=== PATIENT | male | born 1965 | race American Indian/Alaskan Native ===

== ENCOUNTER 2018-08-07 17:24 | Inpatient (IN) | payer MEDICARE, OTHER ==
[2018-08-07 17:37] VITALS: BMI 26.4
--- NOTE | 2018-08-07 18:28 | RAD ---
Date of service: 08/07/2018 HISTORY: SOB COMPARISON: No prior. FINDINGS: LUNGS: Combination of pulmonary infiltrates which are multifocal, extensive fact in the right lung to a greater degree than the left lung and interstitial lung disease primarily reticular nodule with a miliary pattern. Etiology, acuity are unknown. There are no comparison studies. PLEURA: No significant pleural effusion identified, no pneumothorax apparent. CARDIOVASCULAR: No atherosclerotic calcification present Cardiomegaly. No evidence of acute, significant cardiovascular disease. OSSEOUS STRUCTURES: No significant abnormalities. VISUALIZED UPPER ABDOMEN: Normal. OTHER FINDINGS: None. IMPRESSION: Severe interstitial lung disease reticular nodular/miliary pattern. Superimposed multifocal infiltrates right lung greater than. Recommendation: CT scan for further evaluation given clinical symptoms and radiographic findings.
[2018-08-07 18:29] LABS: VENOUS BLOOD GAS BASE EXCESS 3.5 mmol/L (0.0-2.0); VENOUS BLOOD GAS PO2 38 mm/Hg (30-55); VENOUS BLOOD PH 7.49 (7.32-7.43)
[2018-08-07 18:53] LABS: BASO # 0.07 K/mm3 (0.0-2.0); BASO % 0.1 % (0.0-3.0); EOS % 0.1 % (1.5-5.0); HEMOGLOBIN 7.3 g/dL (14.0-18.0); LYMPH # 2.2 (1.2-3.4); LYMPH % 4.1 % (22.0-35.0); MEAN CELL VOLUME 87.3 fl (80.0-105.0); MEAN CORPUSCULAR HEMOGLOBIN 28.1 pg (25.0-35.0); MEAN CORPUSCULAR HGB CONC 32.2 g/dl (31.0-37.0); MONO # 1.3 (0.1-0.6); MONO % 2.4 % (1.0-6.0); PLATELET COUNT 102 10^3/uL (120.0-450.0); RED CELL DISTRIBUTION WIDTH 19.9 % (11.5-14.5)
[2018-08-07 19:01] LABS: WHITE BLOOD COUNT 53.9 10^3/uL (4.5-11.0)
[2018-08-07 19:05] LABS: INR 2.19; PARTIAL THROMBOPLASTIN TIME 30.1 Seconds (26.9-38.3); PROTHROMBIN TIME 24.3 SECONDS (9.4-12.5)
[2018-08-07] MEDS ORDERED: Piperacill/Tazo 4.5gm in NS 4.5 GM/100 ML BAG IVPB STA (19:07)
[2018-08-07] MEDS ORDERED: Vancomycin 1gm in NS 250ml 1 GM/250 ML BAG IVPB STA (19:07)
[2018-08-07 19:08] LABS: ALB/GLOB RATIO 0.8 (1.1-1.8); ALBUMIN 2.7 g/dL (3.0-4.8); CALCIUM 7.1 mg/dL (8.4-10.5)
[2018-08-07 19:11] LABS: BAND 3 % (0-2); LYMPHOCYTE 2 % (22.0-35.0); METAMYELOCYTE 1 %; MONOCYTE 3 % (1.0-6.0); MYELOCYTE 1 %; NEUTROPHIL 90 % (50.0-70.0); NUCLEATED RED BLOOD CELL 2 %
[2018-08-07 19:12] LABS: ANISOCYTOSIS 1+; TARGET CELLS SLIGHT
--- NOTE | 2018-08-07 19:15 | ED PDOC ---
Arrival/HPI - General Chief Complaint: Weakness/Neurological Deficit Historian: Patient - History of Present Illness Narrative History of Present Illness (Text): 08/07/18 19:14 Remigio Vega is a 53 year old male, with a past medical history of stage 4 c ancer and ESRD on dialysis (T, Th , Sat), sent to the emergency department by oncologist for generalized pain / weakness, sacral wound, and left upper extremity / bilateral lower extremity swelling. Patient notes diarrhea and back pain. Patient also notes fever since the past couple of days. Per family, patient is darker in appearance than usual. Patient appreciates recent kidney biopsy which showed necrotic tissue. Pt does not produce urine with last dialysis on 08/05/18. Patient denies chills, headache, dizziness, chest pain, shortness of breath, cough, abdominal pain, nausea, vomiting, bloody / dark stools, neck pain, or any other complaints. Oncologist: Dr. Talley Time/Duration: Prior to Arrival Symptom Course: Unchanged Activities at Onset: Light Context: Home Past Medical History - Provider Review Nursing Documentation Reviewed: Yes - Infectious Disease Hx of Infectious Diseases: None - Cardiac Hx Hypertension: Yes - Renal Hx Dialysis: Yes ([facility]) Type of Dialysis Access: BERE AV SHUNT Date of Last Dialysis Treatment: 08/05/18 - Hematological/Oncological Hx Anemia: Yes Hx Blood Transfusions: Yes (in [facility] [place]) Hx Cancer: Yes - Psychiatric Hx Substance Use: No - Surgical History Other/Comment: Biopsy. BERE AV shunt - Anesthesia Hx Anesthesia: Yes Hx Anesthesia Reactions: No Hx Malignant Hyperthermia: No Family/Social History - Physician Review Nursing Documentation Reviewed: Yes Family/Social History: Unknown Family HX Smoking Status: Never Smoked Hx Alcohol Use: No Hx Substance Use: No Allergies/Home Meds Allergies/Adverse Reactions: Allergies No Known Allergies Allergy (Verified 08/07/18 17:37) Review of Systems - Physician Review All systems were reviewed & negative as marked: Yes - Review of Systems Constitutional: Fevers, Other (generalized pain / weakness) Respiratory: absent: SOB, Cough Cardiovascular: Edema (left upper extremity and bilateral lower extremity swelling). absent: Chest Pain Gastrointestinal: Diarrhea. absent: Abdominal Pain, Nausea, Vomiting, Hematochezia, Other (melena ) Musculoskeletal: Back Pain Skin: Other (sacral wound) Neurological: absent: Headache, Dizziness Physical Exam Vital Signs Reviewed: Yes Vital Signs Temp Pulse Resp BP Pulse Ox 08/07/18 18:04 68 20 102/66 88 L 08/07/18 17:37 97.5 F L 72 18 94/55 L 91 L Temperature: Afebrile Blood Pressure: Normal Pulse: Regular Respiratory Rate: Normal Appearance: Positive for: Well-Appearing, Non-Toxic, Comfortable Pain Distress: None Mental Status: Positive for: Alert and Oriented X 3 - Systems Exam Head: Present: Atraumatic, Normocephalic Pupils: Present: PERRL Extroacular Muscles: Present: EOMI Conjunctiva: Present: Normal Mouth: Present: Moist Mucous Membranes Neck: Present: Normal Range of Motion. No: JVD Respiratory/Chest: Present: Rales (correction up). No: Respiratory Distress, Accessory Muscle Use Cardiovascular: Present: Normal S1, S2, Irregular Rhythm. No: Murmurs Abdomen: Present: Distention, Normal Bowel Sounds. No: Tenderness, Peritoneal Signs, Rebound, Guarding Back: Present: Normal Inspection Upper Extremity: Present: Normal Inspection. No: Cyanosis, Edema Lower Extremity: Present: Normal Inspection, Swelling (pitting edema +2 bilateral lower extremities). No: Edema Neurological: Present: GCS=15, CN II-XII Intact, Speech Normal Skin: Present: Warm, Dry, Normal Color. No: Rashes Psychiatric: Present: Alert, Oriented x 3, Normal Insight, Normal Concentration Medical Decision Making ED Course and Treatment: 08/07/18 19:14 Impression: Patient is a 53 year old male, with a past medical history of stage 4 cancer and ESRD on dialysis (T, Th , Sat), sent to the emergency department by oncologist for generalized pain / weakness, sacral wound, and left upper extremity / bilateral lower extremity swelling. Plan: -- Labs -- CT Chest / Abdomen / Pelvis w/o Contrast -- EKG -- Chest X-Ray -- Vancomycin -- Zosyn -- Urinalysis -- O2 Nasal Cannula -- Reassess and disposition Prior Visits: Notes and results from previous visits were reviewed. Progress Notes: 08/07/18 20:[address] Talley who states patient appreciates 12 cm mass to right kidney. Also informs patient was recently admitted to [facility] [place] for weakness. At that time hemoglobin was 8.5 and pt received 1 unit of RBC's. Also appreciated ultrasound of left upper extremity which did not show DVT. Patient's white count is consistently high in the mid 30,000 range. Lactate 10:1 between 2 and 3. Code Sepsis called. 08/07/18 20:[address] Hutchinson, patient accepted to telemetry. - Lab Interpretations Lab Results: pO2 38 mm/Hg (30-55) 08/07/18 18:24 VBG pH 7.49 (7.32-7.43) H 08/07/18 18:24 VBG pCO2 35.0 (40-60) L 08/07/18 18:24 VBG HCO3 26.7 mmol/l (21-28) 08/07/18 18:24 VBG Total CO2 27.8 mmol.L (22-28) 08/07/18 18:24 VBG O2 Sat (Calc) 71.7 % (40-65) H 08/07/18 18:24 VBG Base Excess 3.5 mmol/L (0.0-2.0) H 08/07/18 18:24 VBG Potassium 4.9 mmol/L (3.6-5.2) 08/07/18 18:24 Sodium 132.0 mmol/L (132-148) 08/07/18 18:24 Chloride 92.0 mmol/L (98-107) L 08/07/18 18:24 Glucose 92 mg/dl (75-110) 08/07/18 18:24 Lactate 4.8 mmol/L (0.7-2.1) H* 08/07/18 18:24 FiO2 21.0 % 08/07/18 18:24 Crit Value Called To Ileana brady 08/07/18 18:24 [place] [id number] 08/07/18 18:24 Blood Gas Notified Time 1829 08/07/18 18:24 PT 24.3 SECONDS (9.4-12.5) H 08/07/18 18:49 INR 2.19 08/07/18 18:49 APTT 30.1 Seconds (26.9-38.3) 08/07/18 18:49 Total Bilirubin 2.3 mg/dL (0.2-1.3) H 08/07/18 18:49 AST 169 U/L (17-59) H 08/07/18 18:49 ALT 49 U/L (7-56) 08/07/18 18:49 Alkaline Phosphatase 251 U/L (38-126) H 08/07/18 18:49 Total Protein 6.1 g/dL (5.8-8.3) 08/07/18 18:49 Albumin 2.7 g/dL (3.0-4.8) L 08/07/18 18:49 Globulin 3.4 gm/dL 08/07/18 18:49 Albumin/Globulin Ratio 0.8 (1.1-1.8) L 08/07/18 18:49 - RAD Interpretation Radiology Orders: 08/07/18 18:02 CHEST PORTABLE [RAD] Stat 08/07/18 18:03 CHEST,ABDOMEN, PELVIS W/O CONT [CT] Stat - EKG Interpretation EKG Interpretation (Text): 08/07/18 19:14 Reviewed EKG, shows: NSR at 60 BPM. Normal [place], Normal Intervals. Interpreted by ED Physician: Yes Type: 12 lead EKG - Medication Orders Current Medication Orders: Vancomycin HCl (Vancomycin 1gm) 1 gm in 250 mls @ 167 mls/hr IVPB STAT STA; Protocol Stop: 08/07/18 20:36 Piperacillin Sod/Tazobactam Sod (Zosyn 4.5 Gm In Ns 100ml) 4.5 gm in 100 mls @ 200 mls/hr IVPB STAT STA; Protocol Stop: 08/07/18 19:36 - Scribe Statement The provider has reviewed the documentation as recorded by the Scribkishore Willard All medical record entries made by the Anastasiaibkishore were at my direction and personally dictated by me. I have reviewed the chart and agree that the record accurately reflects my personal performance of the history, physical exam, medical decision making, and the department course for this patient. I have also personally directed, reviewed, and agree with the discharge instructions and disposition. Disposition/Present on Arrival - Present on Arrival Any Indicators Present on Arrival: No History of DVT/PE: No History of Uncontrolled Diabetes: No Urinary Catheter: No History of Decub. Ulcer: No History Surgical Site Infection Following: None - Disposition Have Diagnosis and Disposition been Completed?: Yes Diagnosis: Sepsis, ESRD (end stage renal disease), Anemia, Weakness, Renal cell carcinoma, Elevated troponin, Leukocytosis, Bandemia Disposition: HOSPITALIZED Disposition Time: 18:00 Condition: GUARDED
--- NOTE | 2018-08-07 19:24 | CARD ---
APPROVED REPORT Date of service: 08/07/2018 EKG Measurement Heart [id number] <Conclusion> Normal sinus rhythm Normal ECG
[2018-08-07 19:42] LABS: TROPONIN I 0.27 ng/mL
[2018-08-07 21:46] LABS: VENOUS BLOOD GAS BASE EXCESS 2.2 mmol/L (0.0-2.0); VENOUS BLOOD GAS PO2 183 mm/Hg (30-55); VENOUS BLOOD PH 7.49 (7.32-7.43)
--- NOTE | 2018-08-07 22:40 | PCM.SEPTIC ---
<Mable Gordon - Last Filed: 08/08/18 03:27> Sepsis Progress Note - Reassessment Type Reassessment Type: Non-invasive reassessment - Non Invasive Reassessment Were the most recent vital sign reviewed: Yes Vital Sign (Latest): Temp Pulse Resp BP Pulse Ox 97.5 F L 69 18 107/59 L 100 08/07/18 17:37 08/07/18 22:10 08/07/18 22:10 08/07/18 22:10 08/07/18 22:10 Cardiovascular: Yes: Regular Rate, Rhythm Respiratory: Yes: Rales Capillary Refill: Normal (Less than 2 sec) Skin: Normal Color <Barron Carmona - Last Filed: 08/08/18 06:22> Sepsis Progress Note - Non Invasive Reassessment Vital Sign (Latest): Temp Pulse Resp BP Pulse Ox 97.6 F 64 19 96/57 L 97 08/08/18 02:53 08/08/18 06:00 08/08/18 02:53 08/08/18 02:53 08/08/18 00:01 Attending/Attestation - Attestation I have personally seen and examined this patient.: Yes I have fully participated in the care of the patient.: Yes I have reviewed all pertinent clinical information, including history, physical exam and plan: Yes
--- NOTE | 2018-08-08 00:16 | CP.PCM.HP ---
<Lexi Lazo - Last Filed: 08/08/18 00:12> History of Present Illness - History of Present Illness History of Present Illness: Hospitalist H&P, Stephen Lazo PGY3 This is a 53yo AA male with past medical history of HTN, HLD, ESRD on HD (, , ), R Renal mass who came in for weakness and diarrhea for 3 days. Patient reports he has been having loose watery stool. He denies recent travel or change in diet. He has been going to [facility] for evaluation of his R renal mass and was recently admitted there. Patient is a poor historian. I spoke with his , Aimee, who reports patient has recently been on antibiotics. She also states he had a recent renal biopsy which did not yield a diagnosis. He also has L arm swelling for the past 2 weeks which was evaluated for blood clot and was re ported negative as per his . She also reports he had an echo and other imaging done at [facility]. She states she will bring his records in the morning as well as his home medication list. Patient reports having weakness, some shortness of breath and diffuse swelling. He denies chest pain, nausea/vomiting, fever/chills, numbness/tingling, dysuria or hematuria. reports he started HD 6 months ago and states that her was non-compliant with medications and follow up in the past. She is unsure if he started HD secondary to kidney mass v. uncontrolled BP. ED physician spoke with patients oncologist, Dr. Childs, who states his baseline WBC is in the 30s and lactate 2-3 as well as Hgb baseline of 8.5. Past medical history: HTN, HLD, ESRD on HD (T, T, ), R Renal mass Past surgical history: L AV fistula, R Renal mass biopsy Home meds: Patient unable to recall. has all medication at home and will bring to hospital in AM Allergies: NKDA Social history: Denies EtOH, drug or tobacco use. 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 Childs Explosive Man: Dr. Lewis? Present on Admission - Present on Admission Any Indicators Present on Admission: No Review of Systems - Review of Systems All systems: reviewed and no additional remarkable complaints except Review of Systems: 12 point ROS obtained as per HPI and is otherwise negative Past Patient History - Infectious Disease Hx of Infectious Diseases: None - Past Social History Smoking Status: Never Smoked - CARDIAC Hx Hypertension: Yes - RENAL Hx Dialysis: Yes ([facility]) Type of Dialysis Access: BERE AV SHUNT Date of Last Dialysis Treatment: 08/05/18 - HEMATOLOGICAL/ONCOLOGICAL Hx Anemia: Yes Hx Blood Transfusions: Yes (in [facility]) Hx Cancer: Yes - PSYCHIATRIC Hx Substance Use: No - SURGICAL HISTORY Other/Comment: Biopsy. BERE AV shunt - ANESTHESIA Hx Anesthesia: Yes Hx Anesthesia Reactions: No Hx Malignant Hyperthermia: No Meds Allergies/Adverse Reactions: Allergies Allergy/AdvReac Type Severity Reaction Status Date / Time No Known Allergies Allergy Verified 08/07/18 17:37 Physical Exam - Constitutional Appears: No Acute Distress, Chronically Ill - Head Exam Head Exam: ATRAUMATIC, NORMAL INSPECTION, NORMOCEPHALIC - Eye Exam Eye Exam: Normal appearance, PERRL Pupil Exam: NORMAL ACCOMODATION, PERRL - ENT Exam ENT Exam: Mucous Membranes Moist - Respiratory Exam Respiratory Exam: Rales (at bases bilaterally ), Rhonchi, NORMAL BREATHING PATTERN - Cardiovascular Exam Cardiovascular Exam: REGULAR RHYTHM, +S1, +S2. absent: Gallop, Rubs, Systolic Murmur - GI/Abdominal Exam GI & Abdominal Exam: Distended, Normal Bowel Sounds, Organomegaly (hepatomegaly ), Soft. absent: Mass, Rebound, Rigid, Tenderness - Extremities Exam Extremities exam: Positive for: pedal edema. Negative for: calf tenderness Additional comments: L upper extremity swollen AV fistula bruit appreciated - Neurological Exam Neurological exam: Alert, CN II-XII Intact - Psychiatric Exam Psychiatric exam: Normal Affect, Normal Mood - Skin Skin Exam: Dry, Intact, Warm Results - Vital Signs Recent Vital Signs: Last Vital Signs Temp 97.0 F L 08/07/18 23:47 Pulse 85 08/07/18 23:47 Resp 20 08/07/18 23:47 BP 114/75 08/07/18 23:47 Pulse Ox 100 08/07/18 22:10 - Labs Result Diagrams: 08/07/18 18:49 08/07/18 18:49 Labs: Laboratory Results - last 24 hr 08/07/18 08/07/18 08/07/18 18:24 18:49 18:49 WBC 53.9 H* RBC 2.60 L Hgb 7.3 L Hct 22.7 L MCV 87.3 MCH 28.1 MCHC 32.2 RDW 19.9 H Plt Count 102 L MPV 10.0 Neut % (Auto) 93.3 H Lymph % (Auto) 4.1 L Forrest % (Auto) 2.4 Eos % (Auto) 0.1 L Baso % (Auto) 0.1 Lymph # (Auto) 2.2 Forrest # (Auto) 1.3 H Eos # (Auto) 0.0 Baso # (Auto) 0.07 Absolute Neuts (auto) 50.29 H Neutrophils % (Manual) 90 H Band Neutrophils % 3 H Lymphocytes % (Manual) 2 L Monocytes % (Manual) 3 Metamyelocytes % 1 Myelocytes % 1 Nucleated RBC % 2 Anisocytosis (manual) 1+ Target Cells Slight PT 24.3 H INR 2.19 APTT 30.1 pO2 38 VBG pH 7.49 H VBG pCO2 35.0 L VBG HCO3 26.7 VBG Total CO2 27.8 VBG O2 Sat (Calc) 71.7 H VBG Base Excess 3.5 H VBG Potassium 4.9 Sodium 132.0 Chloride 92.0 L Glucose 92 Lactate 4.8 H* FiO2 21.0 Crit Value Called [place] [id number] Blood Gas Notified Time 1829 Potassium Carbon Dioxide Anion Gap BUN Creatinine Est GFR ( Amer) Est GFR (Non-Af Amer) Random Glucose Calcium Phosphorus Magnesium Total Bilirubin AST ALT Alkaline Phosphatase Lactate Dehydrogenase Total Creatine Kinase Troponin I NT-Pro-B Natriuret Pep Total Protein Albumin Globulin Albumin/Globulin Ratio Venous Blood Potassium 4.9 Blood Type Blood Type Confirm Antibody Screen Crossmatch BBK History Checked 08/07/18 08/07/18 08/07/18 18:49 18:49 19:17 WBC RBC Hgb Hct MCV MCH MCHC RDW Plt Count MPV Neut % (Auto) Lymph % (Auto) Forrest % (Auto) Eos % (Auto) Baso % (Auto) Lymph # (Auto) Forrest # (Auto) Eos # (Auto) Baso # (Auto) Absolute Neuts (auto) Neutrophils % (Manual) Band Neutrophils % Lymphocytes % (Manual) Monocytes % (Manual) Metamyelocytes % Myelocytes % Nucleated RBC % Anisocytosis (manual) Target Cells PT INR APTT pO2 VBG pH VBG pCO2 VBG HCO3 VBG Total CO2 VBG O2 Sat (Calc) VBG Base Excess VBG Potassium Sodium 134 Chloride 89 L Glucose Lactate FiO2 Crit Value Called To Crit Value Called By Blood Gas Notified Time Potassium 4.9 Carbon Dioxide 26 Anion Gap 23 H BUN 74 H Creatinine 5.6 H Est GFR ( Amer) 13 Est GFR (Non-Af Amer) 11 Random Glucose 93 Calcium 7.1 L Phosphorus 6.4 H Magnesium 2.0 Total Bilirubin 2.3 H AST 169 H ALT 49 Alkaline Phosphatase 251 H Lactate Dehydrogenase 17324 H Total Creatine Kinase 28 L Troponin I 0.27 H* NT-Pro-B Natriuret Pep 71391 H Total Protein 6.1 Albumin 2.7 L Globulin 3.4 Albumin/Globulin Ratio 0.8 L Venous Blood Potassium Blood Type O POSITIVE Blood Type Confirm O POSITIVE Antibody Screen Negative Crossmatch See Detail BBK History Checked No verified bt 08/07/18 21:30 WBC RBC Hgb Hct MCV MCH MCHC RDW Plt Count MPV Neut % (Auto) Lymph % (Auto) Forrest % (Auto) Eos % (Auto) Baso % (Auto) Lymph # (Auto) Forrest # (Auto) Eos # (Auto) Baso # (Auto) Absolute Neuts (auto) Neutrophils % (Manual) Band Neutrophils % Lymphocytes % (Manual) Monocytes % (Manual) Metamyelocytes % Myelocytes % Nucleated RBC % Anisocytosis (manual) Target Cells PT INR APTT pO2 183 H VBG pH 7.49 H VBG pCO2 33.0 L VBG HCO3 25.1 VBG Total CO2 26.1 VBG O2 Sat (Calc) 100.6 H VBG Base Excess 2.2 H VBG Potassium 4.8 Sodium 133.0 Chloride 96.0 L Glucose 88 Lactate 4.0 H* FiO2 21.0 Crit Value Called To Elieser murray Crit Value Called By Atc Blood Gas Notified Time 2144 Potassium Carbon Dioxide Anion Gap BUN Creatinine Est GFR ( Amer) Est GFR (Non-Af Amer) Random Glucose Calcium Phosphorus Magnesium Total Bilirubin AST ALT Alkaline Phosphatase Lactate Dehydrogenase Total Creatine Kinase Troponin I NT-Pro-B Natriuret Pep Total Protein Albumin Globulin Albumin/Globulin Ratio Venous Blood Potassium 4.8 Blood Type Blood Type Confirm Antibody Screen Crossmatch BBK History Checked Assessment & Plan - Assessment and Plan (Free Text) Assessment: This is a 53yo AA male with past medical history of HTN, HLD, ESRD on HD (T, T, Sa), R Renal mass who came in for weakness and diarrhea for 3 days. Patient was found to have sepsis secondary to diarrhea v. pneumonia, anasarca, anemia, and elevated troponin. Plan: 1.Sepsis -Secondary to diarrhea (rule out C.diff) as well as pneumonia -WBC 53- baseline WBC 30s and lactate 2-3 according to oncologist- Dr. Childs -Vanc and Zosyn given in ED -Cultures pending (stool, blood, urine) -Will give PO Vanco empirically for C.diff -Merrem (renally dosed) and Doxy for suspected HCAP -ID consulted -CT AP showed LLL consolidation 2.Elevated troponin -Can be secondary to demand ischemia -Pt had echo done recently at [facility] according to family- will obtain records in AM -Will trend troponin, check lipid panel -Cardio consulted -ASA and Lipitor - CT AP showed severely enlarged heart w/ moderate size pericardial effusion 3.Anasarca -Pt had LUE US last week to rule out DVT which was negative at [facility] [place] -Hold IV fluids -Will do HD as scheduled 4.Anemia/thrombocytopenia -Baseline Hgb ~8.[address] Childs (oncologist) -No overt bleeding noted -1U PRBC ordered by ED physician -Heme/onc consulted by ED unknown if Dr. Childs [place] [facility] 5.Leukocytosis -Can be secondary to sepsis -Will order peripheral smear to rule out CLL - baseline WBC 30s 6.ESRD on HD -HD on T, T, Sa -Nephrology consulted to initiate HD for AM 7.HTN -BP low -Hold antihypertensives 8.R Renal mass - 12.5cm on CT, L kidney severely atrophic -Unknown cancer undistinguishable on biopsy -Mets to liver and lungs seen on CT -Palliative care consulted -Patient does have a document saying that is power of traffic law attorney which will bring in AM DVT ppx: Heparin SC Case seen, discussed and reviewed with Dr. Kristine Lazo PGY3 - Date & Time Date: 08/08/18 Time: 00:27 <Barron Carmona - Last Filed: 08/08/18 06:22> Results - Vital Signs Recent Vital Signs: Last Vital Signs Temp 97.6 F 08/08/18 02:53 Pulse 64 08/08/18 06:00 Resp 19 08/08/18 02:53 BP 96/57 L 08/08/18 02:53 Pulse Ox 97 08/08/18 00:01 - Labs Result Diagrams: 08/08/18 04:00 08/08/18 04:00 Labs: Laboratory Results - last 24 hr 08/07/18 08/07/18 08/07/18 18:24 18:49 18:49 WBC 53.9 H* RBC 2.60 L Hgb 7.3 L Hct 22.7 L MCV 87.3 MCH 28.1 MCHC 32.2 RDW 19.9 H Plt Count 102 L MPV 10.0 Neut % (Auto) 93.3 H Lymph % (Auto) 4.1 L Forrest % (Auto) 2.4 Eos % (Auto) 0.1 L Baso % (Auto) 0.1 Lymph # (Auto) 2.2 Forrest # (Auto) 1.3 H Eos # (Auto) 0.0 Baso # (Auto) 0.07 Absolute Neuts (auto) 50.29 H Neutrophils % (Manual) 90 H Band Neutrophils % 3 H Lymphocytes % (Manual) 2 L Monocytes % (Manual) 3 Metamyelocytes % 1 Myelocytes % 1 Nucleated RBC % 2 Anisocytosis (manual) 1+ Target Cells Slight PT 24.3 H INR 2.19 APTT 30.1 pO2 38 VBG pH 7.49 H VBG pCO2 35.0 L VBG HCO3 26.7 VBG Total CO2 27.8 VBG O2 Sat (Calc) 71.7 H VBG Base Excess 3.5 H VBG Potassium 4.9 Sodium 132.0 Chloride 92.0 L Glucose 92 Lactate 4.8 H* FiO2 21.0 Crit Value Called To [place] [id number] Blood Gas Notified Time 1275 Potassium Carbon Dioxide Anion Gap BUN Creatinine Est GFR ( Amer) Est GFR (Non-Af Amer) Random Glucose Calcium Phosphorus Magnesium Total Bilirubin AST ALT Alkaline Phosphatase Lactate Dehydrogenase Total Creatine Kinase Troponin I NT-Pro-B Natriuret Pep Total Protein Albumin Globulin Albumin/Globulin Ratio Triglycerides Cholesterol LDL Cholesterol Direct HDL Cholesterol Venous Blood Potassium 4.9 Blood Type Blood Type Confirm Antibody Screen Crossmatch BBK History Checked 08/07/18 08/07/18 08/07/18 18:49 18:49 19:17 WBC RBC Hgb Hct MCV MCH MCHC RDW Plt Count MPV Neut % (Auto) Lymph % (Auto) Forrest % (Auto) Eos % (Auto) Baso % (Auto) Lymph # (Auto) Forrest # (Auto) Eos # (Auto) Baso # (Auto) Absolute Neuts (auto) Neutrophils % (Manual) Band Neutrophils % Lymphocytes % (Manual) Monocytes % (Manual) Metamyelocytes % Myelocytes % Nucleated RBC % Anisocytosis (manual) Target Cells PT INR APTT pO2 VBG pH VBG pCO2 VBG HCO3 VBG Total CO2 VBG O2 Sat (Calc) VBG Base Excess VBG Potassium Sodium 134 Chloride 89 L Glucose Lactate FiO2 Crit Value Called To Crit Value Called By Blood Gas Notified Time Potassium 4.9 Carbon Dioxide 26 Anion Gap 23 H BUN 74 H Creatinine 5.6 H Est GFR ( Amer) 13 Est GFR (Non-Af Amer) 11 Random Glucose 93 Calcium 7.1 L Phosphorus 6.4 H Magnesium 2.0 Total Bilirubin 2.3 H AST 169 H ALT 49 Alkaline Phosphatase 251 H Lactate Dehydrogenase 66286 H Total Creatine Kinase 28 L Troponin I 0.27 H* NT-Pro-B Natriuret Pep 47461 H Total Protein 6.1 Albumin 2.7 L Globulin 3.4 Albumin/Globulin Ratio 0.8 L Triglycerides Cholesterol LDL Cholesterol Direct HDL Cholesterol Venous Blood Potassium Blood Type O POSITIVE Blood Type Confirm O POSITIVE Antibody Screen Negative Crossmatch See Detail BBK History Checked No verified bt 08/07/18 08/08/18 08/08/18 21:30 04:00 04:00 WBC 47.4 H* RBC 2.85 L Hgb 7.9 L Hct 24.7 L MCV 86.7 MCH 27.7 MCHC 32.0 RDW 19.0 H Plt Count 85 L MPV 9.5 Neut % (Auto) Lymph % (Auto) Forrest % (Auto) Eos % (Auto) Baso % (Auto) Lymph # (Auto) Forrest # (Auto) Eos # (Auto) Baso # (Auto) Absolute Neuts (auto) Neutrophils % (Manual) Band Neutrophils % Lymphocytes % (Manual) Monocytes % (Manual) Metamyelocytes % Myelocytes % Nucleated RBC % Anisocytosis (manual) Target Cells PT INR APTT pO2 183 H VBG pH 7.49 H VBG pCO2 33.0 L VBG HCO3 25.1 VBG Total CO2 26.1 VBG O2 Sat (Calc) 100.6 H VBG Base Excess 2.2 H VBG Potassium 4.8 Sodium 133.0 134 Chloride 96.0 L 89 L Glucose 88 Lactate 4.0 H* FiO2 21.0 Crit Value Called To Elieser murray Crit Value Called By Atc Blood Gas Notified Time 2145 Potassium 5.1 H Carbon Dioxide 28 Anion Gap 22 H BUN 78 H Creatinine 6.2 H Est GFR ( Amer) 11 Est GFR (Non-Af Amer) 9 Random Glucose 96 Calcium 7.1 L Phosphorus Magnesium Total Bilirubin 2.4 H AST 123 H D ALT 43 Alkaline Phosphatase 244 H Lactate Dehydrogenase Total Creatine Kinase Troponin I 0.23 H* NT-Pro-B Natriuret Pep Total Protein 6.0 Albumin 2.7 L Globulin 3.3 Albumin/Globulin Ratio 0.8 L Triglycerides 193 H Cholesterol 108 L LDL Cholesterol Direct 39 HDL Cholesterol 13 L Venous Blood Potassium 4.8 Blood Type Blood Type Confirm Antibody Screen Crossmatch BBK History Checked Attending/Attestation - Attestation I have personally seen and examined this patient.: Yes I have fully participated in the care of the patient.: Yes I have reviewed all pertinent clinical information: Yes Notes (Text): 08/08/18 06:20 Seen and examined. Discussed with resident. A&P as above. Pt. prognosis is guarded. Recently hospitalized at [facility] and had 2 BX of right kidney with DXs of necrotic tissue. Suspected by oncologist to have RCC with mets to lungs and liver. Hold Anti HTN meds 2/2 sepsis 2/2 HCAP. R/O c diff. Needs palliative consult. LUE swelling may need Venogram to assess HD graft.
[2018-08-08] MEDS ORDERED: Albuterol-Ipratrop 3 mg / 0.5 (3 ml) UD IH PRN (00:22)
[2018-08-08 04:18] LABS: HEMOGLOBIN 7.9 g/dL (14.0-18.0); MEAN CELL VOLUME 86.7 fl (80.0-105.0); MEAN CORPUSCULAR HEMOGLOBIN 27.7 pg (25.0-35.0); MEAN PLATELET VOLUME 9.5 fl (7.0-11.0); RBC 2.85 10^6/uL (3.5-6.1)
[2018-08-08 04:30] LABS: WHITE BLOOD COUNT 47.4 10^3/uL (4.5-11.0)
[2018-08-08 05:33] LABS: ALB/GLOB RATIO 0.8 (1.1-1.8); ALBUMIN 2.7 g/dL (3.0-4.8); CALCIUM 7.1 mg/dL (8.4-10.5); TROPONIN I 0.23 ng/mL
--- NOTE | 2018-08-08 09:16 | CP.PCM.CON ---
History of Present Illness - History of Present Illness History of Present Illness: 53 year old male patient with extensive medical history including HTN, HLD, ESRD on HD (T, T, ), and right renal mass likely RCC with mets to the lung who is admitted for progressive weakness and diarrhea x 3 days. He was recently dis charged from [facility] [place] he was admitted for left upper extremity swelling where thrombosis and cellulitis were ruled out. He was on broad spectrum antibiotics and he had a renal biopsy performed which yielded only necrotic tissue. He currently complains of weakness, shortness of breath, and fatigue related to his underlying disease and anemia. He feels slightly better after one unit of pRBC last night. He denies chest pain, nausea/vomiting, fever/chills, numbness/tingling, dysuria or hematuria. Mr. Vega has been non compliant with treatment and follow up until recently. He has been on HD for only a few months and follows with Dr. Reddy. Past medical history: HTN, HLD, ESRD on HD (, , ), R Renal mass Past surgical history: L AV fistula, R Renal mass biopsy Home meds: as per med rec Allergies: NKDA Social history: Denies EtOH, drug or tobacco use. 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 Family history: Mom: HTN Review of Systems - Review of Systems Review of Systems: all systems reviewed and are negative other than what is mentioned above Past Patient History - Infectious Disease Hx of Infectious Diseases: None - Past Social History Smoking Status: Never Smoked - CARDIAC Hx Hypertension: Yes - NEUROLOGICAL Hx Dizziness: Yes - RENAL Hx Dialysis: Yes ([facility]) Type of Dialysis Access: BERE AV SHUNT Date of Last Dialysis Treatment: 08/05/18 - HEMATOLOGICAL/ONCOLOGICAL Hx Anemia: Yes Hx Blood Transfusions: Yes (in [facility] [place] Hx Cancer: Yes - MUSCULOSKELETAL/RHEUMATOLOGICAL Hx Back Pain: Yes Hx Falls: No Hx Unsteady Gait: Yes - GENITOURINARY/GYNECOLOGICAL Hx Incontinence: Yes - PSYCHIATRIC Hx Substance Use: No - SURGICAL HISTORY Other/Comment: Biopsy. BERE AV shunt - ANESTHESIA Hx Anesthesia: Yes Hx Anesthesia Reactions: No Hx Malignant Hyperthermia: No Meds Allergies/Adverse Reactions: Allergies Allergy/AdvReac Type Severity Reaction Status Date / Time No Known Allergies Allergy Verified 08/07/18 17:37 - Medications Medications: Current Medications Acetaminophen (Tylenol 325mg Tab) 650 mg PO Q6H PRN PRN Reason: Fever >100.4 F Albuterol/Ipratropium (Duoneb 3 Mg/0.5 Mg (3 Ml) Ud) 3 ml IH Q2H PRN PRN Reason: Shortness of Breath Aspirin (Aspirin Chewable) 81 mg PO DAILY [facility] Atorvastatin Calcium (Lipitor) 40 mg PO DIN PAULO Heparin Sodium (Porcine) (Heparin) 5,000 units SC Q8 PAULO; Protocol Last Admin: 08/08/18 06:08 Dose: Not Given Doxycycline Hyclate 100 mg/ (Sodium Chloride) 100 mls @ 100 mls/hr IVPB Q12 PAULO; Protocol Meropenem/Sodium Chloride (Merrem Iv 500 Mg/Ns 50 Ml) 500 mg in 50 mls @ 100 mls/hr IVPB Q24H PAULO; Protocol Vancomycin HCl (Vancocin 25 Mg/Ml (Oral Use)) 250 mg PO QID PAULO; Protocol Physical Exam - Constitutional Appears: No Acute Distress, Older Than Stated Age, Chronically Ill - Head Exam Head Exam: ATRAUMATIC, NORMAL INSPECTION, NORMOCEPHALIC - Eye Exam Eye Exam: EOMI, Normal appearance, PERRL Additional comments: icteric sclera - ENT Exam ENT Exam: Mucous Membranes Moist, Normal Exam - Neck Exam Neck exam: Positive for: Full Rom, Normal Inspection - Respiratory Exam Respiratory Exam: Accessory Muscle Use, Clear to Auscultation Bilateral. absent: Rales, Rhonchi, Wheezes, Respiratory Distress, Stridor - Cardiovascular Exam Cardiovascular Exam: +S1, +S2 - GI/Abdominal Exam GI & Abdominal Exam: Normal Bowel Sounds. absent: Distended, Hypoactive Bowel Sounds, Mass, Organomegaly - Rectal Exam Rectal Exam: Deferred - Extremities Exam Extremities exam: Positive for: full ROM Additional comments: left upper extremity remains edematous, has a palpable thrill at the AVF site - Neurological Exam Neurological exam: Alert, CN II-XII Intact, Oriented x3 - Psychiatric Exam Psychiatric exam: Depressed - Skin Skin Exam: Dry, Intact, Warm Results - Vital Signs Recent Vital Signs: Last Vital Signs Temp 97.0 F L 08/08/18 06:00 Pulse 67 08/08/18 06:00 Resp 19 08/08/18 06:00 BP 92/51 L 08/08/18 06:00 Pulse Ox 95 08/08/18 06:00 - Labs Result Diagrams: 08/08/18 04:00 08/08/18 04:00 Labs: Laboratory Results - last 24 hr 08/07/18 08/07/18 08/07/18 18:24 18:49 18:49 WBC 53.9 H* RBC 2.60 L Hgb 7.3 L Hct 22.7 L MCV 87.3 MCH 28.1 MCHC 32.2 RDW 19.9 H Plt Count 102 L MPV 10.0 Neut % (Auto) 93.3 H Lymph % (Auto) 4.1 L [place] % (Auto) 2.4 Eos % (Auto) 0.1 L Baso % (Auto) 0.1 Lymph # (Auto) 2.2 [place] # (Auto) 1.3 H Eos # (Auto) 0.0 Baso # (Auto) 0.07 Absolute Neuts (auto) 50.29 H Neutrophils % (Manual) 90 H Band Neutrophils % 3 H Lymphocytes % (Manual) 2 L Monocytes % (Manual) 3 Metamyelocytes % 1 Myelocytes % 1 Nucleated RBC % 2 Anisocytosis (manual) 1+ Target Cells Slight PT 24.3 H INR 2.19 APTT 30.1 pO2 38 VBG pH 7.49 H VBG pCO2 35.0 L VBG HCO3 26.7 VBG Total CO2 27.8 VBG O2 Sat (Calc) 71.7 H VBG Base Excess 3.5 H VBG Potassium 4.9 Sodium 132.0 Chloride 92.0 L Glucose 92 Lactate 4.8 H* FiO2 21.0 Crit Value Called [place] [id number] Blood Gas Notified Time 1829 Potassium Carbon Dioxide Anion Gap BUN Creatinine Est GFR ( Amer) Est GFR (Non-Af Amer) Random Glucose Calcium Phosphorus Magnesium Total Bilirubin AST ALT Alkaline Phosphatase Lactate Dehydrogenase Total Creatine Kinase Troponin I NT-Pro-B Natriuret Pep Total Protein Albumin Globulin Albumin/Globulin Ratio Triglycerides Cholesterol LDL Cholesterol Direct HDL Cholesterol Venous Blood Potassium 4.9 Blood Type Blood Type Confirm Antibody Screen Crossmatch BBK History Checked 08/07/18 08/07/18 08/07/18 18:49 18:49 19:17 WBC RBC Hgb Hct MCV MCH MCHC RDW Plt Count MPV Neut % (Auto) Lymph % (Auto) [place] % (Auto) Eos % (Auto) Baso % (Auto) Lymph # (Auto) [place] # (Auto) Eos # (Auto) Baso # (Auto) Absolute Neuts (auto) Neutrophils % (Manual) Band Neutrophils % Lymphocytes % (Manual) Monocytes % (Manual) Metamyelocytes % Myelocytes % Nucleated RBC % Anisocytosis (manual) Target Cells PT INR APTT pO2 VBG pH VBG pCO2 VBG HCO3 VBG Total CO2 VBG O2 Sat (Calc) VBG Base Excess VBG Potassium Sodium 134 Chloride 89 L Glucose Lactate FiO2 Crit Value Called To Crit Value Called By Blood Gas Notified Time Potassium 4.9 Carbon Dioxide 26 Anion Gap 23 H BUN 74 H Creatinine 5.6 H Est GFR ( Amer) 13 Est GFR (Non-Af Amer) 11 Random Glucose 93 Calcium 7.1 L Phosphorus 6.4 H Magnesium 2.0 Total Bilirubin 2.3 H AST 169 H ALT 49 Alkaline Phosphatase 251 H Lactate Dehydrogenase 95875 H Total Creatine Kinase 28 L Troponin I 0.27 H* NT-Pro-B Natriuret Pep 30535 H Total Protein 6.1 Albumin 2.7 L Globulin 3.4 Albumin/Globulin Ratio 0.8 L Triglycerides Cholesterol LDL Cholesterol Direct HDL Cholesterol Venous Blood Potassium Blood Type O POSITIVE Blood Type Confirm O POSITIVE Antibody Screen Negative Crossmatch See Detail BBK History Checked No verified bt 08/07/18 08/08/18 08/08/18 21:30 04:00 04:00 WBC 47.4 H* RBC 2.85 L Hgb 7.9 L Hct 24.7 L MCV 86.7 MCH 27.7 MCHC 32.0 RDW 19.0 H Plt Count 85 L MPV 9.5 Neut % (Auto) Lymph % (Auto) [place] % (Auto) Eos % (Auto) Baso % (Auto) Lymph # (Auto) [place] # (Auto) Eos # (Auto) Baso # (Auto) Absolute Neuts (auto) Neutrophils % (Manual) Band Neutrophils % Lymphocytes % (Manual) Monocytes % (Manual) Metamyelocytes % Myelocytes % Nucleated RBC % Anisocytosis (manual) Target Cells PT INR APTT pO2 183 H VBG pH 7.49 H VBG pCO2 33.0 L VBG HCO3 25.1 VBG Total CO2 26.1 VBG O2 Sat (Calc) 100.6 H VBG Base Excess 2.2 H VBG Potassium 4.8 Sodium 133.0 134 Chloride 96.0 L 89 L Glucose 88 Lactate 4.0 H* FiO2 21.0 Crit Value Called To Elieser murray Crit Value Called By Atc Blood Gas Notified Time 2144 Potassium 5.1 H Carbon Dioxide 28 Anion Gap 22 H BUN 78 H Creatinine 6.2 H Est GFR ( Amer) 11 Est GFR (Non-Af Amer) 9 Random Glucose 96 Calcium 7.1 L Phosphorus Magnesium Total Bilirubin 2.4 H AST 123 H D ALT 43 Alkaline Phosphatase 244 H Lactate Dehydrogenase Total Creatine Kinase Troponin I 0.23 H* NT-Pro-B Natriuret Pep Total Protein 6.0 Albumin 2.7 L Globulin 3.3 Albumin/Globulin Ratio 0.8 L Triglycerides 193 H Cholesterol 108 L LDL Cholesterol Direct 39 HDL Cholesterol 13 L Venous Blood Potassium 4.8 Blood Type Blood Type Confirm Antibody Screen Crossmatch BBK History Checked Assessment & Plan (1) Renal mass, right Status: Acute (2) Renal mass, right Status: Acute (3) Renal cell carcinoma Status: Acute - Assessment and Plan (Free Text) Assessment: 53 year old male patient with extensive medical history of HTN, HLD, ESRD on HD (T, T, Sa), R Renal mass admitted for progressive weakness and diarrhea. Patient has likely metastatic renal cell carcinoma, unfortunately he's had two biopsies performed at [facility] [place] which did were noted to have only necrotic tissue. He will need to have a definitive biopsy in order to proceed with treatment for his underlying malignancy. Leukocytosis is likely reactive to his underlying malignancy, but would need to rule out infectious causes. Anemia multifactorial due to chronic renal disease and cannot rule out chronic blood loss. Plan Septic workup Vascular evaluation for his left upper extremity swelling Nephrology evaluation to start his HD Please transfuse one unit of PRBC during HD IR evaluation for lung biopsy to prove metastatic disease Monitor CBC and transfuse as clinically indicated Will continue to follow Thank you for allowing me to partake in your patients care. Sincerely, Odilon Childs
--- NOTE | 2018-08-08 09:36 | CP.PCM.CON ---
<Greyson Monterroso - Last Filed: 08/08/18 12:06> History of Present Illness - History of Present Illness History of Present Illness: Infectious disease consult note: 53-year-old male with past medical history of ESRD on HD, hypertension, hyperlipidemia, right renal mass with possible cancer presents for weakness and diarrhea. He states that he had diarrhea a few days ago however has now resolv ed. He does admit to taking antibiotics that he was given however he does not know where the infection was. Patient states that he has been worked up in [facility] [place] evaluation of the right renal mass however it did not show any cancer. He also states that he follows up with his oncologist that believes he has cancer that has possibly spread. Patient also complains of a left arm swelling that was evaluated 2 weeks ago however did not show any blood clot. Patient follows up with Dr. Childs his oncologist, and his reported WBC is generally in the 30s, lactate in the range of 2 ~3. Infectious disease was consulted for sepsis and cancer. 12 point ROS performed and negative other than stated above Past medical history: Refer to above Past surgical history: L AV fistula Allergies: NKDA Social history: Denies EtOH, drug or tobacco use. 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 Childs Review of Systems - Review of Systems All systems: reviewed and no additional remarkable complaints except Past Patient History - Infectious Disease Hx of Infectious Diseases: None - Past Social History Smoking Status: Never Smoked - CARDIAC Hx Hypertension: Yes - NEUROLOGICAL Hx Dizziness: Yes - RENAL Hx Dialysis: Yes ([facility] Type of Dialysis Access: BERE AV SHUNT Date of Last Dialysis Treatment: 08/05/18 - HEMATOLOGICAL/ONCOLOGICAL Hx Anemia: Yes Hx Blood Transfusions: Yes (in [facility] Hx Cancer: Yes - MUSCULOSKELETAL/RHEUMATOLOGICAL Hx Back Pain: Yes Hx Falls: No Hx Unsteady Gait: Yes - GENITOURINARY/GYNECOLOGICAL Hx Incontinence: Yes - PSYCHIATRIC Hx Substance Use: No - SURGICAL HISTORY Other/Comment: Biopsy. BERE AV shunt - ANESTHESIA Hx Anesthesia: Yes Hx Anesthesia Reactions: No Hx Malignant Hyperthermia: No Meds Allergies/Adverse Reactions: Allergies Allergy/AdvReac Type Severity Reaction Status Date / Time No Known Allergies Allergy Verified 08/07/18 17:37 - Medications Medications: Current Medications Acetaminophen (Tylenol 325mg Tab) 650 mg PO Q6H PRN PRN Reason: Fever >100.4 F Albuterol/Ipratropium (Duoneb 3 Mg/0.5 Mg (3 Ml) Ud) 3 ml IH Q2H PRN PRN Reason: Shortness of Breath Aspirin (Aspirin Chewable) 81 mg PO DAILY [facility] Atorvastatin Calcium (Lipitor) 40 mg PO DIN [facility] Heparin Sodium (Porcine) (Heparin) 5,000 units SC Q8 [facility]; Protocol Last Admin: 08/08/18 06:08 Dose: Not Given Doxycycline Hyclate 100 mg/ (Sodium Chloride) 100 mls @ 100 mls/hr IVPB Q12 [facility]; Protocol Meropenem/Sodium Chloride (Merrem Iv 500 Mg/Ns 50 Ml) 500 mg in 50 mls @ 100 mls/hr IVPB Q24H [facility]; Protocol Vancomycin HCl (Vancocin 25 Mg/Ml (Oral Use)) 250 mg PO QID [facility]; Protocol Physical Exam - Constitutional Appears: No Acute Distress - Head Exam Head Exam: ATRAUMATIC, NORMOCEPHALIC - Eye Exam Eye Exam: EOMI Pupil Exam: PERRL - ENT Exam ENT Exam: Mucous Membranes Moist - Respiratory Exam Respiratory Exam: Clear to Auscultation Bilateral. absent: Rales, Wheezes - Cardiovascular Exam Cardiovascular Exam: REGULAR RHYTHM, +S1, +S2 - GI/Abdominal Exam GI & Abdominal Exam: Distended, Normal Bowel Sounds. absent: Rigid, Tenderness - Extremities Exam Extremities exam: Positive for: pedal edema. Negative for: calf tenderness Additional comments: 2+ - Neurological Exam Neurological exam: Alert, Oriented x3 - Psychiatric Exam Psychiatric exam: Normal Mood - Skin Skin Exam: Dry, Warm Results - Vital Signs Recent Vital Signs: Last Vital Signs Temp 97.0 F L 08/08/18 06:00 Pulse 67 08/08/18 06:00 Resp 19 08/08/18 06:00 BP 92/51 L 08/08/18 06:00 Pulse Ox 95 08/08/18 06:00 - Labs Result Diagrams: 08/08/18 04:00 08/08/18 04:00 Labs: Laboratory Results - last 24 hr 08/07/18 08/07/18 08/07/18 18:24 18:49 18:49 WBC 53.9 H* RBC 2.60 L Hgb 7.3 L Hct 22.7 L MCV 87.3 MCH 28.1 MCHC 32.2 RDW 19.9 H Plt Count 102 L MPV 10.0 Neut % (Auto) 93.3 H Lymph % (Auto) 4.1 L Bulloch % (Auto) 2.4 Eos % (Auto) 0.1 L Baso % (Auto) 0.1 Lymph # (Auto) 2.2 Bulloch # (Auto) 1.3 H Eos # (Auto) 0.0 Baso # (Auto) 0.07 Absolute Neuts (auto) 50.29 H Neutrophils % (Manual) 90 H Band Neutrophils % 3 H Lymphocytes % (Manual) 2 L Monocytes % (Manual) 3 Metamyelocytes % 1 Myelocytes % 1 Nucleated RBC % 2 Anisocytosis (manual) 1+ Target Cells Slight PT 24.3 H INR 2.19 APTT 30.1 pO2 38 VBG pH 7.49 H VBG pCO2 35.0 L VBG HCO3 26.7 VBG Total CO2 27.8 VBG O2 Sat (Calc) 71.7 H VBG Base Excess 3.5 H VBG Potassium 4.9 Sodium 132.0 Chloride 92.0 L Glucose 92 Lactate 4.8 H* FiO2 21.0 Crit Value Called [place] [id number] Blood Gas Notified Time 1829 Potassium Carbon Dioxide Anion Gap BUN Creatinine Est GFR ( Amer) Est GFR (Non-Af Amer) Random Glucose Calcium Phosphorus Magnesium Total Bilirubin AST ALT Alkaline Phosphatase Lactate Dehydrogenase Total Creatine Kinase Troponin I NT-Pro-B Natriuret Pep Total Protein Albumin Globulin Albumin/Globulin Ratio Triglycerides Cholesterol LDL Cholesterol Direct HDL Cholesterol Venous Blood Potassium 4.9 Blood Type Blood Type Confirm Antibody Screen Crossmatch BBK History Checked 08/07/18 08/07/18 08/07/18 18:49 18:49 19:17 WBC RBC Hgb Hct MCV MCH MCHC RDW Plt Count MPV Neut % (Auto) Lymph % (Auto) Bull[place] % (Auto) Eos % (Auto) Baso % (Auto) Lymph # (Auto) Bull[place] # (Auto) Eos # (Auto) Baso # (Auto) Absolute Neuts (auto) Neutrophils % (Manual) Band Neutrophils % Lymphocytes % (Manual) Monocytes % (Manual) Metamyelocytes % Myelocytes % Nucleated RBC % Anisocytosis (manual) Target Cells PT INR APTT pO2 VBG pH VBG pCO2 VBG HCO3 VBG Total CO2 VBG O2 Sat (Calc) VBG Base Excess VBG Potassium Sodium 134 Chloride 89 L Glucose Lactate FiO2 Crit Value Called To Crit Value Called By Blood Gas Notified Time Potassium 4.9 Carbon Dioxide 26 Anion Gap 23 H BUN 74 H Creatinine 5.6 H Est GFR ( Amer) 13 Est GFR (Non-Af Amer) 11 Random Glucose 93 Calcium 7.1 L Phosphorus 6.4 H Magnesium 2.0 Total Bilirubin 2.3 H AST 169 H ALT 49 Alkaline Phosphatase 251 H Lactate Dehydrogenase 50202 H Total Creatine Kinase 28 L Troponin I 0.27 H* NT-Pro-B Natriuret Pep 45877 H Total Protein 6.1 Albumin 2.7 L Globulin 3.4 Albumin/Globulin Ratio 0.8 L Triglycerides Cholesterol LDL Cholesterol Direct HDL Cholesterol Venous Blood Potassium Blood Type O POSITIVE Blood Type Confirm O POSITIVE Antibody Screen Negative Crossmatch See Detail BBK History Checked No verified bt 08/07/18 08/08/18 08/08/18 21:30 04:00 04:00 WBC 47.4 H* RBC 2.85 L Hgb 7.9 L Hct 24.7 L MCV 86.7 MCH 27.7 MCHC 32.0 RDW 19.0 H Plt Count 85 L MPV 9.5 Neut % (Auto) Lymph % (Auto) Bull[place] % (Auto) Eos % (Auto) Baso % (Auto) Lymph # (Auto) Bull[place] # (Auto) Eos # (Auto) Baso # (Auto) Absolute Neuts (auto) Neutrophils % (Manual) Band Neutrophils % Lymphocytes % (Manual) Monocytes % (Manual) Metamyelocytes % Myelocytes % Nucleated RBC % Anisocytosis (manual) Target Cells PT INR APTT pO2 183 H VBG pH 7.49 H VBG pCO2 33.0 L VBG HCO3 25.1 VBG Total CO2 26.1 VBG O2 Sat (Calc) 100.6 H VBG Base Excess 2.2 H VBG Potassium 4.8 Sodium 133.0 134 Chloride 96.0 L 89 L Glucose 88 Lactate 4.0 H* FiO2 21.0 Crit Value Called To Elieser murray Crit Value Called By Atc Blood Gas Notified Time 2145 Potassium 5.1 H Carbon Dioxide 28 Anion Gap 22 H BUN 78 H Creatinine 6.2 H Est GFR ( Amer) 11 Est GFR (Non-Af Amer) 9 Random Glucose 96 Calcium 7.1 L Phosphorus Magnesium Total Bilirubin 2.4 H AST 123 H D ALT 43 Alkaline Phosphatase 244 H Lactate Dehydrogenase Total Creatine Kinase Troponin I 0.23 H* NT-Pro-B Natriuret Pep Total Protein 6.0 Albumin 2.7 L Globulin 3.3 Albumin/Globulin Ratio 0.8 L Triglycerides 193 H Cholesterol 108 L LDL Cholesterol Direct 39 HDL Cholesterol 13 L Venous Blood Potassium 4.8 Blood Type Blood Type Confirm Antibody Screen Crossmatch BBK History Checked Assessment & Plan - Assessment and Plan (Free Text) Assessment: Diarrhea rule out C. difficile Leukocytosis Right renal mass with metastatic disease to the liver and lung r/o HCAP Elevated troponin Anasarca ESRD on HD Anemia Hypertension Patient has been started on vancomycin PO, meropenem, and doxycycline Follow-up septic work-up, blood, urine, sputum, MRSA screen F/U HIV Follow-up C. difficile work-up Obtain records from [facility] Follow-up with cardiology, hematology, and palliative care consultations Continue to monitor for any changes Case and plan to be reviewed and discussed with Dr. Stephens <Stu Stephens - Last Filed: 08/08/18 12:08> Meds - Medications Medications: Current Medications Acetaminophen (Tylenol 325mg Tab) 650 mg PO Q6H PRN PRN Reason: Fever >100.4 F Albumin Human (Albumin Human 25% (25 Gm/100 Ml)) 25 gm IV TTS PRN PRN Reason: Other Albuterol/Ipratropium (Duoneb 3 Mg/0.5 Mg (3 Ml) Ud) 3 ml IH Q2H PRN PRN Reason: Shortness of Breath Aspirin (Aspirin Chewable) 81 mg PO DAILY [facility] Last Admin: 08/08/18 10:09 Dose: 81 mg Atorvastatin Calcium (Lipitor) 40 mg PO DIN [facility] Heparin Sodium (Porcine) (Heparin) 5,000 units SC Q8 [facility]; Protocol Last Admin: 08/08/18 06:08 Dose: Not Given Doxycycline Hyclate 100 mg/ (Sodium Chloride) 100 mls @ 100 mls/hr IVPB Q12 [facility]; Protocol Last Admin: 08/08/18 10:09 Dose: 100 mls/hr Meropenem/Sodium Chloride (Merrem Iv 500 Mg/Ns 50 Ml) 500 mg in 50 mls @ 100 mls/hr IVPB Q24H [facility]; Protocol Vancomycin HCl (Vancocin 25 Mg/Ml (Oral Use)) 250 mg PO QID [facility]; Protocol Last Admin: 08/08/18 10:10 Dose: 250 mg Vitamin B Complex/Vit C/Folic Acid (Nephro-Denice) 1 tab PO 0800 [facility] Results - Vital Signs Recent Vital Signs: Last Vital Signs Temp 97 F L 08/08/18 12:00 Pulse 67 08/08/18 12:00 Resp 18 08/08/18 12:00 BP 112/66 08/08/18 12:00 Pulse Ox 95 08/08/18 06:00 - Labs Result Diagrams: 08/08/18 04:00 08/08/18 04:00 Labs: Laboratory Results - last 24 hr 08/07/18 08/07/18 08/07/18 18:24 18:49 18:49 WBC 53.9 H* RBC 2.60 L Hgb 7.3 L Hct 22.7 L MCV 87.3 MCH 28.1 MCHC 32.2 RDW 19.9 H Plt Count 102 L MPV 10.0 Neut % (Auto) 93.3 H Lymph % (Auto) 4.1 L Bull[place] % (Auto) 2.4 Eos % (Auto) 0.1 L Baso % (Auto) 0.1 Lymph # (Auto) 2.2 Bulloch # (Auto) 1.3 H Eos # (Auto) 0.0 Baso # (Auto) 0.07 Absolute Neuts (auto) 50.29 H Neutrophils % (Manual) 90 H Band Neutrophils % 3 H Lymphocytes % (Manual) 2 L Monocytes % (Manual) 3 Metamyelocytes % 1 Myelocytes % 1 Nucleated RBC % 2 Anisocytosis (manual) 1+ Target Cells Slight PT 24.3 H INR 2.19 APTT 30.1 pO2 38 VBG pH 7.49 H VBG pCO2 35.0 L VBG HCO3 26.7 VBG Total CO2 27.8 VBG O2 Sat (Calc) 71.7 H VBG Base Excess 3.5 H VBG Potassium 4.9 Sodium 132.0 Chloride 92.0 L Glucose 92 Lactate 4.8 H* FiO2 21.0 Crit Value Called [place] [id number] Blood Gas Notified Time 1825 Potassium Carbon Dioxide Anion Gap BUN Creatinine Est GFR ( Amer) Est GFR (Non-Af Amer) Random Glucose Calcium Phosphorus Magnesium Total Bilirubin AST ALT Alkaline Phosphatase Lactate Dehydrogenase Total Creatine Kinase Troponin I NT-Pro-B Natriuret Pep Total Protein Albumin Globulin Albumin/Globulin Ratio Triglycerides Cholesterol LDL Cholesterol Direct HDL Cholesterol Venous Blood Potassium 4.9 Blood Type Blood Type Confirm Antibody Screen Crossmatch BBK History Checked 08/07/18 08/07/18 08/07/18 18:49 18:49 19:17 WBC RBC Hgb Hct MCV MCH MCHC RDW Plt Count MPV Neut % (Auto) Lymph % (Auto) Bull[place] % (Auto) Eos % (Auto) Baso % (Auto) Lymph # (Auto) Bull[place] # (Auto) Eos # (Auto) Baso # (Auto) Absolute Neuts (auto) Neutrophils % (Manual) Band Neutrophils % Lymphocytes % (Manual) Monocytes % (Manual) Metamyelocytes % Myelocytes % Nucleated RBC % Anisocytosis (manual) Target Cells PT INR APTT pO2 VBG pH VBG pCO2 VBG HCO3 VBG Total CO2 VBG O2 Sat (Calc) VBG Base Excess VBG Potassium Sodium 134 Chloride 89 L Glucose Lactate FiO2 Crit Value Called To Crit Value Called By Blood Gas Notified Time Potassium 4.9 Carbon Dioxide 26 Anion Gap 23 H BUN 74 H Creatinine 5.6 H Est GFR ( Amer) 13 Est GFR (Non-Af Amer) 11 Random Glucose 93 Calcium 7.1 L Phosphorus 6.4 H Magnesium 2.0 Total Bilirubin 2.3 H AST 169 H ALT 49 Alkaline Phosphatase 251 H Lactate Dehydrogenase 13150 H Total Creatine Kinase 28 L Troponin I 0.27 H* NT-Pro-B Natriuret Pep 98415 H Total Protein 6.1 Albumin 2.7 L Globulin 3.4 Albumin/Globulin Ratio 0.8 L Triglycerides Cholesterol LDL Cholesterol Direct HDL Cholesterol Venous Blood Potassium Blood Type O POSITIVE Blood Type Confirm O POSITIVE Antibody Screen Negative Crossmatch See Detail BBK History Checked No verified bt 08/07/18 08/08/18 08/08/18 21:30 04:00 04:00 WBC 47.4 H* RBC 2.85 L Hgb 7.9 L Hct 24.7 L MCV 86.7 MCH 27.7 MCHC 32.0 RDW 19.0 H Plt Count 85 L MPV 9.5 Neut % (Auto) Lymph % (Auto) [place] % (Auto) Eos % (Auto) Baso % (Auto) Lymph # (Auto) Bull[place] # (Auto) Eos # (Auto) Baso # (Auto) Absolute Neuts (auto) Neutrophils % (Manual) Band Neutrophils % Lymphocytes % (Manual) Monocytes % (Manual) Metamyelocytes % Myelocytes % Nucleated RBC % Anisocytosis (manual) Target Cells PT INR APTT pO2 183 H VBG pH 7.49 H VBG pCO2 33.0 L VBG HCO3 25.1 VBG Total CO2 26.1 VBG O2 Sat (Calc) 100.6 H VBG Base Excess 2.2 H VBG Potassium 4.8 Sodium 133.0 134 Chloride 96.0 L 89 L Glucose 88 Lactate 4.0 H* FiO2 21.0 Crit Value Called To Elieser murray Crit Value Called By Atc Blood Gas Notified Time 2145 Potassium 5.1 H Carbon Dioxide 28 Anion Gap 22 H BUN 78 H Creatinine 6.2 H Est GFR ( Amer) 11 Est GFR (Non-Af Amer) 9 Random Glucose 96 Calcium 7.1 L Phosphorus Magnesium Total Bilirubin 2.4 H AST 123 H D ALT 43 Alkaline Phosphatase 244 H Lactate Dehydrogenase Total Creatine Kinase Troponin I 0.23 H* NT-Pro-B Natriuret Pep Total Protein 6.0 Albumin 2.7 L Globulin 3.3 Albumin/Globulin Ratio 0.8 L Triglycerides 193 H Cholesterol 108 L LDL Cholesterol Direct 39 HDL Cholesterol 13 L Venous Blood Potassium 4.8 Blood Type Blood Type Confirm Antibody Screen Crossmatch BBK History Checked Attending/Attestation - Attestation I have personally seen and examined this patient.: Yes I have fully participated in the care of the patient.: Yes I have reviewed all pertinent clinical information: Yes
[2018-08-08] MEDS: Vancomycin 25 MG/ML PO SCH ×4 (10:10→22:27)
[2018-08-08] MEDS ORDERED: Albumin Human 25% (25 gm/100 ml) IV PRN (10:19)
--- NOTE | 2018-08-08 11:05 | CT ---
Date of service: 08/07/2018 PROCEDURE: CT Chest, Abdomen and Pelvis without intravenous contrast HISTORY: SOB, abdominal distention, ? renal cancer COMPARISON: None available. TECHNIQUE: Radiation dose: Total exam DLP = 800.09 mGy-cm. This CT exam was performed using one or more of the following dose reduction techniques: Automated exposure control, adjustment of the mA and/or kV according to patient size, and/or use of iterative reconstruction technique. FINDINGS: CT CHEST WITHOUT CONTRAST: LUNGS: The lungs are well inflated. There are innumerable tiny nodules in both lungs and multiple subcentimeter nodules in the lungs with more confluent airspace disease in the lingula and left lower lobe. MEDIASTINUM: There is moderate cardiomegaly. Small pericardial effusion. There is low attenuation in the aorta and blood in the ventricles suggestive of severe anemia. LYMPH NODES: There are multiple enlarged axillary lymph nodes. Evaluation of mediastinal and hilar lymphadenopathy is limited in the absence of intravenous contrast. PLEURA: Small right pleural effusion. No pneumothorax. There is a 8.5 x 4.6 cm pleural based mass in the right anterior lung base. BONES: No destructive bony lesions. OTHER FINDINGS: None. CT ABDOMEN AND PELVIS: LIVER: The liver is enlarged and there are innumerable tiny low-attenuation nodules in the liver. No ductal dilatation. GALLBLADDER AND BILE DUCTS: Partially contracted. PANCREAS: Normal in size. SPLEEN: Mild splenomegaly. ADRENALS: The left adrenal gland is thick the right adrenal gland is normal. KIDNEYS AND URETERS: Large heterogeneous predominantly low attenuation mass in the left kidney measuring approximately 12.4 x 10.9 cm. VASCULATURE: There are early aortic atherosclerotic calcification or mural plaque present. Unremarkable. No aortic aneurysm. BOWEL: Unremarkable. No obstruction. No gross mural thickening. APPENDIX: Normal appendix. PERITONEUM: Moderate abdominal and pelvic ascites. No free air. LYMPH NODES: Unremarkable. No enlarged lymph nodes. BLADDER: Decompressed. REPRODUCTIVE: Unremarkable. BONES: No destructive bony lesions. Diffuse increased bone density likely related to renal osteodystrophy OTHER FINDINGS: There is severe diffuse anasarca. IMPRESSION: 1. Findings are most compatible with a large right renal malignant neoplasm with diffuse metastasis in the lungs, and liver, large pleural based metastatic mass in the right anterior lung base and multiple presumable metastatic axillary lymph nodes. 2. Small pericardial effusion, moderate abdominal and pelvic ascites, small right pleural effusion and severe diffuse anasarca. A preliminary report was provided by [facility].
--- NOTE | 2018-08-08 12:38 | CP.PCM.CON ---
History of Present Illness - History of Present Illness History of Present Illness: Nephrology Consultation Note: Assessment: critical fluid overload with anasarca and likely underlying metastatic malignancy Hypertensive Chronic Kidney Disease (I12.0) End stage renal disease (N18.6) dependence on hemodialysis (Z99.2) (TTS) via AV access Anemia (D64.9), Hyperphosphatemia (E83.39), Secondary Hyperparathyroidism (E21.1 ), HTN (I12.0) thrombocytopenia, lactic acidosis Plan: Will plan for HD as TTS schedule Continue with Nephrovite 1 tab/day. extra UF tomorrow defer MAVIS use to heme/once in view of likely active malignancy. PRBC as needed. continue with phos binders BP control with meds as ordered. Patient not on RAAS janine as BP low side Glycemic control Dialysis consistent diet Further work up/management as per primary team Dose meds/antibiotics (if needed) for ESRD status. Avoid fleets enema/magnesium based laxatives. overall prognosis poor. heme/onc following. consider palliative care. IR consult for fistulogram Thanks for allowing me to participate in care of your patient. Will follow patient with you. Please call if any Qs. had d/w team Dr Barry Hall Office: [phone] Chief Complaint; diarrhoea, left arm swelling, confusion reason for consult: ESRD HPI: Pt is a 53 y/o with hx of ESRD on hemodialysis (TTS) x 6 months via Lt AVF, last dialysis Sat @ [facility] [place] with Dr Reddy, chronic anemia, hyperphosphatemia, secondary hyperparathyroidism, hypertension and Rt renal mass likely with metastasis presented with complaints of confusion, diarrhoea, SOB for last few days and left arm swelling x 2 weeks pt denies any complaints in particular at this time but doesn't feel well. c/o leg swelling and abdomen distension ROS: Feels sick Denies chest pain, palpitation, has shortness of breath, leg/LUE swelling. appetite decreased. rest all other neg except as mentioned in HPI and sister bedside and their anticipation and expectations unrealistic in terms of patient recovery/prognosis Physical Examination: General Appearance: Comfortable, in no acute respiratory distress, co-operative . ill appearing Vitals reviewed and noted as below Head; Atraumatic, normocephalic ENT: no ulcers no thrush. Tongue is midline. Oropharynx: no rash EYES: Pupils are equal, round and reactive to light accommodation. Eye muscles and extraocular movement intact. Sclera is icteric. Neck; supple no lymphadenopathy, no thyromegaly or bruit. Rt infraclavicular hollowing and Rt sternal head prominence noted Lungs: Increased respiratory rate/effort. Breath sounds bilateral reduced at bases. Heart: Normal rate. s1s2 normal. No rub or gallop. Extremities: 2+ edema. No varicose veins. Neurological: Patient is alert, awake and oriented but confused. No focal deficit. Strength bilateral appropriate and equal. Skin: Warm and dry. Normal turgor. No rash. Palpitation: Normal elasticity for age Abdomen: Abdomen is distended with abdominal wall edema. Bowel sounds +. There is no abdominal tenderness, no guarding/rigidity. has hepatomegaly Psych: limited insight and normal affect/mood MSK: no joint tenderness or swelling. Digits and nails normal, no deformity : kidney or bladder not palpable Access: Lt AV access with thrill and bruit. left forearm grossly swollen Labs/imaging reviewed. Past medical history, past surgical history, family history, social history, allergy reviewed and noted as below Family Hx: no hx of CKD. Non contributory Past Patient History - Infectious Disease Hx of Infectious Diseases: None - Past Social History Smoking Status: Never Smoked - CARDIAC Hx Hypertension: Yes - NEUROLOGICAL Hx Dizziness: Yes - RENAL Hx Dialysis: Yes ([facility]) Type of Dialysis Access: BERE AV SHUNT Date of Last Dialysis Treatment: 08/05/18 - HEMATOLOGICAL/ONCOLOGICAL Hx Anemia: Yes Hx Blood Transfusions: Yes (in [facility]) Hx Cancer: Yes - MUSCULOSKELETAL/RHEUMATOLOGICAL Hx Back Pain: Yes Hx Falls: No Hx Unsteady Gait: Yes - GENITOURINARY/GYNECOLOGICAL Hx Incontinence: Yes - PSYCHIATRIC Hx Substance Use: No - SURGICAL HISTORY Other/Comment: Biopsy. BERE AV shunt - ANESTHESIA Hx Anesthesia: Yes Hx Anesthesia Reactions: No Hx Malignant Hyperthermia: No Meds Allergies/Adverse Reactions: Allergies Allergy/AdvReac Type Severity Reaction Status Date / Time No Known Allergies Allergy Verified 08/07/18 17:37 - Medications Medications: Current Medications Acetaminophen (Tylenol 325mg Tab) 650 mg PO Q6H PRN PRN Reason: Fever >100.4 F Albumin Human (Albumin Human 25% (25 Gm/100 Ml)) 25 gm IV TTS PRN PRN Reason: Other Albuterol/Ipratropium (Duoneb 3 Mg/0.5 Mg (3 Ml) Ud) 3 ml IH Q2H PRN PRN Reason: Shortness of Breath Aspirin (Aspirin Chewable) 81 mg PO DAILY [facility] Last Admin: 08/08/18 10:09 Dose: 81 mg Atorvastatin Calcium (Lipitor) 40 mg PO DIN PAULO Heparin Sodium (Porcine) (Heparin) 5,000 units SC Q8 PAULO; Protocol Last Admin: 08/08/18 06:08 Dose: Not Given Doxycycline Hyclate 100 mg/ (Sodium Chloride) 100 mls @ 100 mls/hr IVPB Q12 PAULO; Protocol Last Admin: 08/08/18 10:09 Dose: 100 mls/hr Meropenem/Sodium Chloride (Merrem Iv 500 Mg/Ns 50 Ml) 500 mg in 50 mls @ 100 mls/hr IVPB Q24H PAULO; Protocol Metoprolol Tartrate (Lopressor) 12.5 mg PO BID [facility] Vancomycin HCl (Vancocin 25 Mg/Ml (Oral Use)) 250 mg PO QID PAULO; Protocol Last Admin: 08/08/18 10:10 Dose: 250 mg Vitamin B Complex/Vit C/Folic Acid (Nephro-Denice) 1 tab PO 0800 [facility] Results - Vital Signs Recent Vital Signs: Last Vital Signs Temp 97 F L 08/08/18 12:00 Pulse 67 08/08/18 12:00 Resp 18 08/08/18 12:00 BP 112/66 08/08/18 12:00 Pulse Ox 95 08/08/18 06:00 - Labs Result Diagrams: 08/08/18 04:00 08/08/18 04:00 Labs: Laboratory Results - last 24 hr 08/07/18 08/07/18 08/07/18 18:24 18:49 18:49 WBC 53.9 H* RBC 2.60 L Hgb 7.3 L Hct 22.7 L MCV 87.3 MCH 28.1 MCHC 32.2 RDW 19.9 H Plt Count 102 L MPV 10.0 Neut % (Auto) 93.3 H Lymph % (Auto) 4.1 L [place] % (Auto) 2.4 Eos % (Auto) 0.1 L Baso % (Auto) 0.1 Lymph # (Auto) 2.2 [place] # (Auto) 1.3 H Eos # (Auto) 0.0 Baso # (Auto) 0.07 Absolute Neuts (auto) 50.29 H Neutrophils % (Manual) 90 H Band Neutrophils % 3 H Lymphocytes % (Manual) 2 L Monocytes % (Manual) 3 Metamyelocytes % 1 Myelocytes % 1 Nucleated RBC % 2 Anisocytosis (manual) 1+ Target Cells Slight PT 24.3 H INR 2.19 APTT 30.1 pO2 38 VBG pH 7.49 H VBG pCO2 35.0 L VBG HCO3 26.7 VBG Total CO2 27.8 VBG O2 Sat (Calc) 71.7 H VBG Base Excess 3.5 H VBG Potassium 4.9 Sodium 132.0 Chloride 92.0 L Glucose 92 Lactate 4.8 H* FiO2 21.0 Crit Value Called [place] [address] Blood Gas Notified Time 1829 Potassium Carbon Dioxide Anion Gap BUN Creatinine Est GFR ( Amer) Est GFR (Non-Af Amer) Random Glucose Calcium Phosphorus Magnesium Total Bilirubin AST ALT Alkaline Phosphatase Lactate Dehydrogenase Total Creatine Kinase Troponin I NT-Pro-B Natriuret Pep Total Protein Albumin Globulin Albumin/Globulin Ratio Triglycerides Cholesterol LDL Cholesterol Direct HDL Cholesterol Venous Blood Potassium 4.9 Blood Type Blood Type Confirm Antibody Screen Crossmatch BBK History Checked 08/07/18 08/07/18 08/07/18 18:49 18:49 19:17 WBC RBC Hgb Hct MCV MCH MCHC RDW Plt Count MPV Neut % (Auto) Lymph % (Auto) [place] % (Auto) Eos % (Auto) Baso % (Auto) Lymph # (Auto) [place] # (Auto) Eos # (Auto) Baso # (Auto) Absolute Neuts (auto) Neutrophils % (Manual) Band Neutrophils % Lymphocytes % (Manual) Monocytes % (Manual) Metamyelocytes % Myelocytes % Nucleated RBC % Anisocytosis (manual) Target Cells PT INR APTT pO2 VBG pH VBG pCO2 VBG HCO3 VBG Total CO2 VBG O2 Sat (Calc) VBG Base Excess VBG Potassium Sodium 134 Chloride 89 L Glucose Lactate FiO2 Crit Value Called To Crit Value Called By Blood Gas Notified Time Potassium 4.9 Carbon Dioxide 26 Anion Gap 23 H BUN 74 H Creatinine 5.6 H Est GFR ( Amer) 13 Est GFR (Non-Af Amer) 11 Random Glucose 93 Calcium 7.1 L Phosphorus 6.4 H Magnesium 2.0 Total Bilirubin 2.3 H AST 169 H ALT 49 Alkaline Phosphatase 251 H Lactate Dehydrogenase 52840 H Total Creatine Kinase 28 L Troponin I 0.27 H* NT-Pro-B Natriuret Pep 67669 H Total Protein 6.1 Albumin 2.7 L Globulin 3.4 Albumin/Globulin Ratio 0.8 L Triglycerides Cholesterol LDL Cholesterol Direct HDL Cholesterol Venous Blood Potassium Blood Type O POSITIVE Blood Type Confirm O POSITIVE Antibody Screen Negative Crossmatch See Detail BBK History Checked No verified bt 08/07/18 08/08/18 08/08/18 21:30 04:00 04:00 WBC 47.4 H* RBC 2.85 L Hgb 7.9 L Hct 24.7 L MCV 86.7 MCH 27.7 MCHC 32.0 RDW 19.0 H Plt Count 85 L MPV 9.5 Neut % (Auto) Lymph % (Auto) [place] % (Auto) Eos % (Auto) Baso % (Auto) Lymph # (Auto) [place] # (Auto) Eos # (Auto) Baso # (Auto) Absolute Neuts (auto) Neutrophils % (Manual) Band Neutrophils % Lymphocytes % (Manual) Monocytes % (Manual) Metamyelocytes % Myelocytes % Nucleated RBC % Anisocytosis (manual) Target Cells PT INR APTT pO2 183 H VBG pH 7.49 H VBG pCO2 33.0 L VBG HCO3 25.1 VBG Total CO2 26.1 VBG O2 Sat (Calc) 100.6 H VBG Base Excess 2.2 H VBG Potassium 4.8 Sodium 133.0 134 Chloride 96.0 L 89 L Glucose 88 Lactate 4.0 H* FiO2 21.0 Crit Value Called To Elieser murray Crit Value Called By [facility] Blood Gas Notified Time 2145 Potassium 5.1 H Carbon Dioxide 28 Anion Gap 22 H BUN 78 H Creatinine 6.2 H Est GFR ( Amer) 11 Est GFR (Non-Af Amer) 9 Random Glucose 96 Calcium 7.1 L Phosphorus Magnesium Total Bilirubin 2.4 H AST 123 H D ALT 43 Alkaline Phosphatase 244 H Lactate Dehydrogenase Total Creatine Kinase Troponin I 0.23 H* NT-Pro-B Natriuret Pep Total Protein 6.0 Albumin 2.7 L Globulin 3.3 Albumin/Globulin Ratio 0.8 L Triglycerides 193 H Cholesterol 108 L LDL Cholesterol Direct 39 HDL Cholesterol 13 L Venous Blood Potassium 4.8 Blood Type Blood Type Confirm Antibody Screen Crossmatch BBK History Checked
--- NOTE | 2018-08-08 12:50 | PCM.PCON ---
History of Present Illness - History of Present Illness History of Present Illness: Palliative consult requested by Dr Pancho Irizarry Reason: Goals of care This is a 53 year old male history of HTN, HLD, ESRD on HD and R Renal mass who presented to ED on with weakness and diarrhea for 3 days. He was recently discharged from [facility] where he was being worked up for R renal mass. The mass was biopsied but did not reveal tumor type. He also has L arm swelling which was evaluated for blood clot and was reported negative as per his . The patient reported having weakness, some shortness of breath and diffuse swelling. He denied chest pain, nausea/vomiting, fever/chills, numbness/tingling, dysuria or hematuria. reports he started HD 6 months ago and states that her was non-compliant with medications and follow up in the past. ED physician spoke with patients oncologist, Dr. Childs, who stated his baseline WBC is in the 30s and lactate 2-3 as well as Hgb baseline of 8.5. Labs: Wbc 47.4, Hgb 7.9, Plt 95, Na 134,K 5.1, BUN 78, judo teacher 6.2, T bili 2.4,AWU377,ALT 43, Alk Phos 244,LDH 21229, Troponins 0.27 & .0.23, BNP 09687,Albumin 2.7, lactate 4.0. CT of chest/Ab: Large right renal malignant renal mass with diffuse metastasis to lungs,liver. Large right pleural metastatic mass and multiple metastatic axillary nodes. Small pericardial effusion, moderate pelvic ascites, small right pleural effusion and severe diffuse anasarca PM Hx: HTN, HLD, ESRD on HD (T, T, S), R Renal mass PSHx: L AV fistula, R Renal mass biopsy Social History: Denies alcohol, drug or tobacco use. 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 Review of Systems - Review of Systems All systems: reviewed and no additional remarkable complaints except Review of Systems: as mentioned in HPI Physical Exam - Constitutional Appears: No Acute Distress, Chronically Ill - Head Exam Head Exam: NORMOCEPHALIC - Eye Exam Eye Exam: PERRL, Scleral icterus - ENT Exam ENT Exam: Mucous Membranes Moist - Neck Exam Neck exam: Positive for: Normal Inspection - Respiratory Exam Respiratory Exam: Decreased Breath Sounds, NORMAL BREATHING PATTERN - Cardiovascular Exam Cardiovascular Exam: REGULAR RHYTHM, +S1, +S2 - GI/Abdominal Exam GI & Abdominal Exam: Distended, Normal Bowel Sounds, Soft - Extremities Exam Extremities exam: Positive for: pedal edema Additional comments: 2+ swelling of LUE - Neurological Exam Neurological exam: Alert Additional comments: oriented to place and self - Skin Skin Exam: Diaphoretic, Pallor - Additional Findings Additional findings: Palliative performance scale rating 50 % Palliative Care Assessment - Pain Scale Pain Score: 0 Pain Scale Used: Numeric - Pain Description Intensity of pain at present: 0 - Camilo Scale Sensory Perception: Slightly Limited Moisture: Occasionally Moist Activity: Walks Occasionally Mobility: Slightly Impaired Nutrition: Probably Inadequate Friction & Shear: Potential Problem Total Score - Skin Risk Assessment: 16 - Psychosocial Distress Patient screened for psychosocial distress: Yes Outcome: Referred to social worker clinical - Goals Treatment Goal(s): Alleviate symptoms, Improve ADLs, Improve quality of life End of life care discussed: Yes - Plan Interdisciplinary involved: firestop/containment worker, Physician Discharge planning: Home Assessment & Plan - Assessment and Plan (Free Text) Assessment: 53 year old male patient with extensive medical history of HTN, HLD, ESRD on HD, R Renal mass admitted for progressive weakness,anasarca, diarrhea, leukocytosis,anemia,sepsis. Patient likely has metastatic renal cell carcinoma. Patient alert, oriented to place and self. at bedside, both patient and are aware of his diagnosis's and prognosis. explained patient developed ESRD requiring HD about 6 months. The patient has renal biopsy for diagnosis, but tissue sample was necrotic and no definitive diagnosis has been made. The patient is being followed by oncologist and he intends to pursue treatment when tissue dx is made. He has and advanced directive.His states that if his condition is terminal or irreversible he wants to be DNR/DNI. to bring a copy of the advanced directive Time spent with patients and in goals of care and advanced care planning, Plan: Goals of care and advance are planning Nephro following/recs reviewed; Continue HD as regular scheduled( T-T-S), Nephrovite. Dose meds/antibiotics forr ESRD status. Oncology recs reviewed, transfuse one unit of PRBC during HD,IR evaluation for lung biopsy to prove metastatic disease. ID recs; continue septic work up/ kirk cultures, C Diff. Continue Vancomycin, Merrem, Doxycycline
[2018-08-08] MEDS: MEROPENEM 500 MG in NS 500 MG/50 ML BAG IVPB SCH (16:01)
--- NOTE | 2018-08-08 22:25 | CON ---
DATE OF CONSULTATION: 08/08/2018 REASON FOR CONSULTATION: Followup cardiac evaluation, borderline troponin positive, history of end-stage renal disease on dialysis, possible renal cell cancer. BRIEF CLINICAL HISTORY: This is a 53-year-old male with a past medical history significant for hypertension, hyperlipidemia, end-stage renal disease on dialysis Tuesday, and Tuesday, has recently diagnosed renal cell mass on the right kidney, possible cancer. The patient was recently admitted to [facility] and discharged, also history of left arm swelling and according to him, he was ruled out for DVT and cellulitis, admitted here. The patient is a very poor historian, unable to give history. The patient is severely anemic, got 1 unit of packed RBC last night. Denies any chest pain. Denies shortness of breath. Denies any palpitation. The patient has on laboratory, borderline troponin positive of 0.27. Status post kidney injury not sure, admitted here with elevated WBC of 53,000, hemoglobin 7.3 and hematocrit 22.7, with a platelet of 102. PAST MEDICAL HISTORY: Past history significant for hypertension, hyperlipidemia, end-stage renal disease on dialysis Tuesday, and Tuesday, history of recently diagnosed renal cell mass, possible cancer according to the patient. SOCIAL HISTORY: Denies any history of alcohol abuse. 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 ALLERGIES: NO KNOWN DRUG ALLERGIES. CURRENT MEDICATIONS: The patient is not sure what medications he is on, very poor historian. PAST SURGICAL HISTORY: Significant for AV fistula for dialysis in left arm and right renal biopsy for the renal mass possible with right renal biopsy at [facility] in a week or 2 weeks ago, history of cellulitis and history of swelling of the left arm, and according to him, the patient had an ultrasound at [facility]. REVIEW OF SYSTEMS: As per HPI. This is the first time the patient is admitted to the [facility]. Review of systems as per HPI. PHYSICAL EXAMINATION: VITAL SIGNS: As follows, height of the patient 5 feet 11 inches, weight of the patient 184 pounds, body mass index of 25.7 kg per meter square. Temperature afebrile, heart rate 62, blood pressure 112/66. HEENT: PERRLA. Extraocular muscles intact. NECK: Supple. No carotid bruits. No thyromegaly. CHEST: Clear to auscultation. HEART: S1 and S2 regular. ABDOMEN: Soft. EXTREMITIES: Clubbing and cyanosis negative. LABORATORY DATA: EKG shows normal sinus rate of 62. Blood workup as follows. WBC 47.4, hemoglobin 7.9, hematocrit 24.7, platelet count 85. Chemistry shows sodium 134, potassium 5.5, chloride 89, carbon dioxide 28, anion gap of 22, BUN 73, creatinine 6.2. Troponin 0.27 and 0.23. 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 EKG is pretty benign, asymptomatic. RECOMMENDATIONS: We will put low dose beta-janine as blood pressure is tolerated. We will start aspirin. The patient has elevated WBC, rule out sepsis or secondary to renal cell cancer. We will follow with you. Agree to DVT prophylaxis and low-dose baby aspirin and low-dose beta-janine, if blood pressure is tolerated. We will get more information from [facility]. The patient said that he had an echo done in 1 week ago. We will get a copy of echo and another medical record from [facility]. Further recommendation in the hospital, we will follow with you. Thank you, Dr. Wells, for providing us the opportunity in taking care of the patient, Gary Flood. Abraham Meier MD
[2018-08-09 07:00] LABS: MEAN CELL VOLUME 86.4 fl (80.0-105.0); MEAN CORPUSCULAR HEMOGLOBIN 27.8 pg (25.0-35.0); MEAN CORPUSCULAR HGB CONC 32.2 g/dl (31.0-37.0); MEAN PLATELET VOLUME 10.6 fl (7.0-11.0); RBC 3.67 10^6/uL (3.5-6.1); RED CELL DISTRIBUTION WIDTH 18.3 % (11.5-14.5)
[2018-08-09 07:09] LABS: ALB/GLOB RATIO 0.8 (1.1-1.8); ALBUMIN 2.9 g/dL (3.0-4.8); CALCIUM 7.7 mg/dL (8.4-10.5)
[2018-08-09 07:31] LABS: WHITE BLOOD COUNT 42.1 10^3/uL (4.5-11.0)
[2018-08-09 07:32] LABS: HEMOGLOBIN 10.2 g/dL (14.0-18.0)
[2018-08-09] MEDS: Multivitamin Vitamin B Complex (Nephro-Vite) Tab PO SCH (09:30)
--- NOTE | 2018-08-09 10:40 | CP.PCM.APN ---
Subjective - Date & Time of Evaluation Date of Evaluation: 08/09/18 Time of Evaluation: 10:00 - Subjective Subjective: pt pt at HD per discussion with egg buyer of Systems - Constitutional Constitutional: As Per HPI Objective - Vital Signs/Intake and Output Vital Signs (last 24 hours): Temp Pulse Resp BP Pulse Ox 97.9 F 77 19 122/66 96 08/09/18 05:56 08/09/18 05:57 08/09/18 05:56 08/09/18 05:56 08/09/18 05:56 Intake and Output: 08/09/18 08/09/18 06:59 18:59 Intake Total 830 Balance 830 - Medications Medications: Current Medications Acetaminophen (Tylenol 325mg Tab) 650 mg PO Q6H PRN PRN Reason: Fever >100.4 F Albumin Human (Albumin Human 25% (25 Gm/100 Ml)) 25 gm IV TTS PRN PRN Reason: Other Albuterol/Ipratropium (Duoneb 3 Mg/0.5 Mg (3 Ml) Ud) 3 ml IH Q2H PRN PRN Reason: Shortness of Breath Aspirin (Aspirin Chewable) 81 mg PO DAILY [facility] Last Admin: 08/08/18 10:09 Dose: 81 mg Atorvastatin Calcium (Lipitor) 40 mg PO DIN [facility] Last Admin: 08/08/18 17:45 Dose: Not Given Heparin Sodium (Porcine) (Heparin) 5,000 units SC Q8 PAULO; Protocol Last Admin: 08/09/18 06:26 Dose: Not Given Doxycycline Hyclate 100 mg/ (Sodium Chloride) 100 mls @ 100 mls/hr IVPB Q12 PAULO; Protocol Last Admin: 08/08/18 22:27 Dose: 100 mls/hr Meropenem/Sodium Chloride (Merrem Iv 500 Mg/Ns 50 Ml) 500 mg in 50 mls @ 100 mls/hr IVPB Q24H [facility]; Protocol Last Admin: 08/08/18 16:01 Dose: 100 mls/hr Metoprolol Tartrate (Lopressor) 25 mg PO BID [facility] Last Admin: 08/09/18 09:24 Dose: Not Given Vancomycin HCl (Vancocin 25 Mg/Ml (Oral Use)) 250 mg PO QID PA[facility]; Protocol Last Admin: 08/08/18 22:27 Dose: 250 mg Vitamin B Complex/Vit C/Folic Acid (Nephro-Denice) 1 tab PO 0800 [facility] - Labs Labs: 08/09/18 06:40 08/09/18 06:40 PT 24.3 SECONDS (9.4-12.5) H 08/07/18 18:49 INR 2.19 08/07/18 18:49 APTT 30.1 Seconds (26.9-38.3) 08/07/18 18:49 Assessment and Plan - Assessment and Plan (Free Text) Plan: ITS Impressions Chest X-Ray 08/07/18 18:02 IMPRESSION: Severe interstitial lung disease reticular nodular/miliary pattern. Superimposed multifocal infiltrates right lung greater than. Recommendation: CT scan for further evaluation given clinical symptoms and radiographic findings. Chest/Abdomen/Pelvis CT 08/07/18 18:03 IMPRESSION: 1. Findings are most compatible with a large right renal malignant neoplasm with diffuse metastasis in the lungs, and liver, large pleural based metastatic mass in the right anterior lung base and multiple presumable metastatic axillary lymph nodes. 2. Small pericardial effusion, moderate abdominal and pelvic ascites, small right pleural effusion and severe diffuse anasarca. A preliminary report was provided by [facility]. A/P 53 yr old with pmh sig for renal cell ca stage 4,HD(t,th,sat) Left AV fistula who presented with c/o gen weakness, diarrhea x 3 days, SOB. Pt now admitted for further eval and treatment for SOB, anemia, positive trop, septic workup. Pt ct chest revealing :findings are most compatible with a large right renal malignant neoplasm with diffuse metastasis in the lungs, and liver, large pleural based metastatic mass in the right anterior lung base and multiple presumable metastatic axillary lymph nodes. pt with wbc initially 53 lactate elevated now with pt with ID, Renal, cardiac and IR consultations will follow workup and clinical status. BPCI/TIC - BPCIA/TIC Educated pt/family on BPCIA/CIR/Med to Bed Programs: N/A Flyers given, including [facility] Beneficiary letter: N/A Pt/family verbalized understanding & agreed to program: N/A
--- NOTE | 2018-08-09 13:22 | PN ---
DATE: 08/09/2018 REASON FOR CONSULTATION AND FOLLOWUP: Cardiac evaluation, borderline positive troponin, history of end-stage renal disease on dialysis, possible renal cell cancer with metastasis. SUBJECTIVE: The patient denies any chest pain, shortness of breath, or any palpitation. PHYSICAL EXAMINATION: GENERAL: Not in apparent distress. VITAL SIGNS: Temperature afebrile, heart rate 77, and blood pressure 122/66. HEENT: PERRLA. Extraocular muscles intact. NECK: Supple. No carotid bruits or thyromegaly. CHEST: Clear to auscultation. HEART: S1, S2. Regular. ABDOMEN: Soft. EXTREMITIES: Clubbing, cyanosis negative. Left upper extremity significantly swollen, appears to be significantly edematous from right upper extremity. DVT scan is negative. LABORATORY DATA: Blood workup: WBC 42.1, hemoglobin 10.2, hematocrit 31.7, platelet count is 82. Chemistry shows sodium 135, potassium 4, chloride 92, carbon dioxide 28, anion gap of 19, BUN 56, creatinine 4.6. CAT scan of the abdomen and pelvis showed large renal malignant neoplasm, diffuse metastases in the lung, liver, large pleural-based metastases, anterior base and presumably metastatic axillary lymph nodes, small pericardial effusion, moderate abdominal and pelvic ascites. IMPRESSION: A 53-year-old male with past medical history significant for end-stage renal disease on dialysis, Tuesday, and Tuesday, admitted with weak, lethargic, anemia, hypertension, hyperlipidemia, recently discharged from [facility]. He is a very poor historian, says there was some kind of mass, but possibly cancer. Cardiology consult was called because of borderline troponin positive in face of chronic kidney disease; creatinine clearance 13 mL, troponin 0.27, not significant. The patient is asymptomatic. Later on, the CAT scan shows widespread metastases, liver, lungs, pleural-based metastases as well as ascites. Most likely, it is malignant ascites. The patient's recent echo was done at [facility] requested, we will review when available. RECOMMENDATIONS: Aggressive medical treatment, no intervention planned for coronary intervention at this time. monitor hemoglobin and hematocrit, continue beta-janine as blood pressure is tolerated and heart rate is tolerated. Continue baby aspirin and no invasive cardiac workup is planned. We will wait for the echo most recently done in [facility] when it is available. If it is not done within a week, we will repeat. Otherwise, we will treat medically. Thank you, Dr. Wells, for providing us the opportunity in taking care of the patient, Remigio Vega. Abraham Meier MD
[2018-08-09] MEDS: Vancomycin 25 MG/ML PO SCH ×3 (13:33→21:55)
--- NOTE | 2018-08-09 14:07 | CP.PCM.PN ---
<Greyson Monterroso - Last Filed: 08/09/18 14:47> Subjective - Date & Time of Evaluation Date of Evaluation: 08/09/18 Time of Evaluation: 11:45 - Subjective Subjective: Infectious disease progress note: Patient seen and examined at HD. No acute events overnight. denies any further episodes of diarrhea. No abd n/v. No other complaints. 12 point ROS performed and negative unless stated above. Objective - Vital Signs/Intake and Output Vital Signs (last 24 hours): Temp Pulse Resp BP Pulse Ox 97.9 F 77 19 122/66 96 08/09/18 05:56 08/09/18 05:57 08/09/18 05:56 08/09/18 05:56 08/09/18 05:56 Intake and Output: 08/09/18 08/09/18 06:59 18:59 Intake Total 830 Balance 830 - Medications Medications: Current Medications Acetaminophen (Tylenol 325mg Tab) 650 mg PO Q6H PRN PRN Reason: Fever >100.4 F Albumin Human (Albumin Human 25% (25 Gm/100 Ml)) 25 gm IV TTS PRN PRN Reason: Other Albuterol/Ipratropium (Duoneb 3 Mg/0.5 Mg (3 Ml) Ud) 3 ml IH Q2H PRN PRN Reason: Shortness of Breath Aspirin (Aspirin Chewable) 81 mg PO DAILY [facility] Last Admin: 08/09/18 13:32 Dose: 81 mg Atorvastatin Calcium (Lipitor) 40 mg PO DIN [facility] Last Admin: 08/08/18 17:45 Dose: Not Given Heparin Sodium (Porcine) (Heparin) 5,000 units SC Q8 [facility]; Protocol Last Admin: 08/09/18 06:26 Dose: Not Given Doxycycline Hyclate 100 mg/ (Sodium Chloride) 100 mls @ 100 mls/hr IVPB Q12 [facility]; Protocol Last Admin: 08/09/18 13:32 Dose: 100 mls/hr Meropenem/Sodium Chloride (Merrem Iv 500 Mg/Ns 50 Ml) 500 mg in 50 mls @ 100 mls/hr IVPB Q24H [facility]; Protocol Last Admin: 08/08/18 16:01 Dose: 100 mls/hr Metoprolol Tartrate (Lopressor) 25 mg PO BID [facility] Last Admin: 08/09/18 09:24 Dose: Not Given Vancomycin HCl (Vancocin 25 Mg/Ml (Oral Use)) 250 mg PO QID [facility]; Protocol Last Admin: 08/09/18 13:45 Dose: Not Given Vitamin B Complex/Vit C/Folic Acid (Nephro-Denice) 1 tab PO 0800 [facility] - Labs Labs: 08/09/18 06:40 08/09/18 06:40 PT 24.3 SECONDS (9.4-12.5) H 08/07/18 18:49 INR 2.19 08/07/18 18:49 APTT 30.1 Seconds (26.9-38.3) 08/07/18 18:49 - Constitutional Appears: No Acute Distress - Head Exam Head Exam: ATRAUMATIC, NORMOCEPHALIC - Eye Exam Eye Exam: EOMI - ENT Exam ENT Exam: Mucous Membranes Moist - Respiratory Exam Respiratory Exam: Clear to Ausculation Bilateral. absent: Wheezes - Cardiovascular Exam Cardiovascular Exam: REGULAR RHYTHM, +S1, +S2 - GI/Abdominal Exam GI & Abdominal Exam: Soft. absent: Tenderness - Extremities Exam Extremities Exam: absent: Calf Tenderness, Pedal Edema Additional comments: LUE swelling / edema L hand edema - Neurological Exam Neurological Exam: Alert, Awake - Psychiatric Exam Psychiatric exam: Normal Mood - Skin Skin Exam: Warm Assessment and Plan - Assessment and Plan (Free Text) Assessment: Leukocytosis Right renal mass with metastatic disease to the liver and lung r/o HCAP Elevated troponin Anasarca ESRD on HD Anemia Hypertension Cont with vancomycin PO, meropenem, and doxycycline Day 2 F/u L upper ext US r/o DVT Follow-up septic work-up, blood, urine, sputum, MRSA screen F/U HIV - neg Follow-up C. difficile work-up - awaiting results Obtain records from [facility] Follow-up with cardiology, hematology, and palliative care consultations Continue to monitor for any changes Case and plan to be reviewed and discussed with Dr. Stephens <Stu Stephens - Last Filed: 08/09/18 14:48> Objective - Vital Signs/Intake and Output Vital Signs (last 24 hours): Temp Pulse Resp BP Pulse Ox 97.9 F 77 19 122/66 96 08/09/18 05:56 08/09/18 05:57 08/09/18 05:56 08/09/18 05:56 08/09/18 05:56 Intake and Output: 08/09/18 08/09/18 06:59 18:59 Intake Total 830 Balance 830 - Medications Medications: Current Medications Acetaminophen (Tylenol 325mg Tab) 650 mg PO Q6H PRN PRN Reason: Fever >100.4 F Albumin Human (Albumin Human 25% (25 Gm/100 Ml)) 25 gm IV TTS PRN PRN Reason: Other Albuterol/Ipratropium (Duoneb 3 Mg/0.5 Mg (3 Ml) Ud) 3 ml IH Q2H PRN PRN Reason: Shortness of Breath Aspirin (Aspirin Chewable) 81 mg PO DAILY [facility] Last Admin: 08/09/18 13:32 Dose: 81 mg Atorvastatin Calcium (Lipitor) 40 mg PO DIN [facility] Last Admin: 08/08/18 17:45 Dose: Not Given Heparin Sodium (Porcine) (Heparin) 5,000 units SC Q8 [facility]; Protocol Last Admin: 08/09/18 06:26 Dose: Not Given Doxycycline Hyclate 100 mg/ (Sodium Chloride) 100 mls @ 100 mls/hr IVPB Q12 [facility]; Protocol Last Admin: 08/09/18 13:32 Dose: 100 mls/hr Meropenem/Sodium Chloride (Merrem Iv 500 Mg/Ns 50 Ml) 500 mg in 50 mls @ 100 mls/hr IVPB Q24H [facility]; Protocol Last Admin: 08/08/18 16:01 Dose: 100 mls/hr Metoprolol Tartrate (Lopressor) 25 mg PO BID [facility] Last Admin: 08/09/18 09:24 Dose: Not Given Vancomycin HCl (Vancocin 25 Mg/Ml (Oral Use)) 250 mg PO QID [facility]; Protocol Last Admin: 08/09/18 13:45 Dose: Not Given Vitamin B Complex/Vit C/Folic Acid (Nephro-Denice) 1 tab PO 0800 [facility] - Labs Labs: 08/09/18 06:40 08/09/18 06:40 PT 24.3 SECONDS (9.4-12.5) H 08/07/18 18:49 INR 2.19 08/07/18 18:49 APTT 30.1 Seconds (26.9-38.3) 08/07/18 18:49 Attending/Attestation - Attestation I have personally seen and examined this patient.: Yes I have fully participated in the care of the patient.: Yes I have reviewed all pertinent clinical information, including history, physical exam and plan: Yes
--- NOTE | 2018-08-09 15:47 | CP.PCM.PN ---
Subjective - Date & Time of Evaluation Date of Evaluation: 08/09/18 Time of Evaluation: 15:46 - Subjective Subjective: Nephrology Consultation Note: Assessment: critical fluid overload with anasarca and likely underlying metastatic malignancy Hypertensive Chronic Kidney Disease (I12.0) End stage renal disease (N18.6) dependence on hemodialysis (Z99.2) (TTS) via AV access Anemia (D64.9), Hyperphosphatemia (E83.39), Secondary Hyperparathyroidism (E21.1 ), HTN (I12.0) thrombocytopenia, lactic acidosis Plan: Will plan for HD as TTS schedule Continue with Nephrovite 1 tab/day. extra UF today done defer MAVIS use to heme/once in view of likely active malignancy. PRBC as needed. BP control with meds as ordered. Patient not on RAAS janine as BP low side Glycemic control Dialysis consistent diet Further work up/management as per primary team Dose meds/antibiotics (if needed) for ESRD status. Avoid fleets enema/magnesium based laxatives. overall prognosis poor. heme/onc following. seen by palliative care. IR consult for fistulogram Thanks for allowing me to participate in care of your patient. Will follow patient with you. Please call if any Qs. had d/w team Dr aBrry Hall Office: [phone] Chief Complaint; diarrhoea, left arm swelling, confusion reason for consult: ESRD HPI: Pt is a 53 y/o with hx of ESRD on hemodialysis (TTS) x 6 months via Lt AVF, last dialysis Sat @ [facility] [place] with Dr Reddy, chronic anemia, hyperphosphatemia, secondary hyperparathyroidism, hypertension and Rt renal mass likely with metastasis presented with complaints of confusion, diarrhoea, SOB for last few days and left arm swelling x 2 weeks pt denies any complaints in particular at this time but doesn't feel well. c/o leg swelling and abdomen distension ROS: Feels sick Denies chest pain, palpitation, has shortness of breath, leg/LUE swelling. appetite decreased. rest all other neg except as mentioned in HPI family bedside Physical Examination: General Appearance: Comfortable, in no acute respiratory distress, co-operative . ill appearing Vitals reviewed and noted as below Head; Atraumatic, normocephalic ENT: no ulcers no thrush. Tongue is midline. Oropharynx: no rash EYES: Pupils are equal, round and reactive to light accommodation. Eye muscles and extraocular movement intact. Sclera is icteric. Neck; supple no lymphadenopathy, no thyromegaly or bruit. Rt infraclavicular hollowing and Rt sternal head prominence noted. also has lump over mid sternal area Lungs: Improved respiratory rate/effort. Breath sounds bilateral reduced at bases. Heart: Normal rate. s1s2 normal. No rub or gallop. Extremities: 1+ edema. No varicose veins. Neurological: Patient is alert, awake and oriented but confused. No focal deficit. Strength bilateral appropriate and equal. Skin: Warm and dry. Normal turgor. No rash. Palpitation: Normal elasticity for age Abdomen: Abdomen is distended with abdominal wall edema. Bowel sounds +. There is no abdominal tenderness, no guarding/rigidity. has hepatomegaly Psych: limited insight and normal affect/mood MSK: no joint tenderness or swelling. Digits and nails normal, no deformity : kidney or bladder not palpable Access: Lt AV access with thrill and bruit. left forearm grossly swollen Labs/imaging reviewed. Past medical history, past surgical history, family history, social history, allergy reviewed and noted as below Family Hx: no hx of CKD. Non contributory Objective - Vital Signs/Intake and Output Vital Signs (last 24 hours): Temp Pulse Resp BP Pulse Ox 97.9 F 77 19 122/66 96 08/09/18 05:56 08/09/18 05:57 08/09/18 05:56 08/09/18 05:56 08/09/18 05:56 Intake and Output: 08/09/18 08/09/18 06:59 18:59 Intake Total 830 Balance 830 - Medications Medications: Current Medications Acetaminophen (Tylenol 325mg Tab) 650 mg PO Q6H PRN PRN Reason: Fever >100.4 F Albumin Human (Albumin Human 25% (25 Gm/100 Ml)) 25 gm IV TTS PRN PRN Reason: Other Albuterol/Ipratropium (Duoneb 3 Mg/0.5 Mg (3 Ml) Ud) 3 ml IH Q2H PRN PRN Reason: Shortness of Breath Aspirin (Aspirin Chewable) 81 mg PO DAILY [facility] Last Admin: 08/09/18 13:32 Dose: 81 mg Atorvastatin Calcium (Lipitor) 40 mg PO DIN [facility] Last Admin: 08/08/18 17:45 Dose: Not Given Heparin Sodium (Porcine) (Heparin) 5,000 units SC Q8 [facility]; Protocol Last Admin: 08/09/18 06:26 Dose: Not Given Doxycycline Hyclate 100 mg/ (Sodium Chloride) 100 mls @ 100 mls/hr IVPB Q12 [facility]; Protocol Last Admin: 08/09/18 13:32 Dose: 100 mls/hr Meropenem/Sodium Chloride (Merrem Iv 500 Mg/Ns 50 Ml) 500 mg in 50 mls @ 100 mls/hr IVPB Q24H [facility]; Protocol Last Admin: 08/08/18 16:01 Dose: 100 mls/hr Metoprolol Tartrate (Lopressor) 25 mg PO BID [facility] Last Admin: 08/09/18 09:24 Dose: Not Given Vancomycin HCl (Vancocin 25 Mg/Ml (Oral Use)) 250 mg PO QID [facility]; Protocol Last Admin: 08/09/18 13:45 Dose: Not Given Vitamin B Complex/Vit C/Folic Acid (Nephro-Denice) 1 tab PO 0800 [facility] - Labs Labs: 08/09/18 06:40 08/09/18 06:40 PT 24.3 SECONDS (9.4-12.5) H 08/07/18 18:49 INR 2.19 08/07/18 18:49 APTT 30.1 Seconds (26.9-38.3) 08/07/18 18:49
--- NOTE | 2018-08-09 17:28 | US ---
PROCEDURE: Left upper extremity venous ultrasound HISTORY: Arm pain and swelling. Evaluate for deep venous thrombosis. PHYSICIAN(S): Saurabh Murray MD. FINDINGS: The visualized leftinternal jugular vein is sonographically normal and compressible. No evidence of obstruction or thrombus is seen. The visualized segments of the left subclavian vein are patent with normal waveforms. No sonographic evidence of obstruction or thrombosis is seen. The visualized deep venous system of the proximal leftupper extremity is sonographically normal and compressible. IMPRESSION: 1. No sonographic evidence for deep venous thrombosis in the visualized segments of the left upper extremity.
[2018-08-09] MEDS ORDERED: Midazolam 2 MG/2 ML VIAL ONE (17:33)
--- NOTE | 2018-08-09 18:17 | CT ---
PROCEDURE: CT guided right renal biopsy. HISTORY: End-stage renal disease. 12 cm solid right renal mass. Evaluate for renal cell carcinoma PHYSICIAN(S): Saurabh Murray MD. TECHNIQUE: The relative risks and indications of the procedure were explained to the patient and consent obtained. The patient was placed prone on the CT scanner and preliminary images through the kidneys obtained. Conscious sedation and monitoring were provided throughout the procedure by a nurse. The 12 cm heterogeneous right renal mass is easily visualized.. A right posterior approach was selected and the area prepped and draped in the usual sterile fashion. 1% Xylocaine was used to anesthetize the skin and soft tissues. A 17-gauge guiding needle was advanced into the medial aspect of the 12 cm right renal mass. Its position was confirmed with CT. Using coaxial technique, multiple core biopsies were obtained. The postprocedure images show no evidence of significant hemorrhage. IMPRESSION: 1. CT-guided right renal biopsy as described above.
--- NOTE | 2018-08-09 20:17 | CP.PCM.PN ---
<Reji Moss - Last Filed: 08/09/18 20:50> Subjective - Date & Time of Evaluation Date of Evaluation: 08/09/18 Time of Evaluation: 07:20 - Subjective Subjective: Reji Moss DO PGY1 Hospitalist Progress Note for Dr Irizarry Patient seen and examined at bedside. Patient still feels weak, lethargic with some improvement s/p blood transfusion yesterday Objective - Vital Signs/Intake and Output Vital Signs (last 24 hours): Temp Pulse Resp BP Pulse Ox 98.4 F 83 16 156/74 H 96 08/09/18 19:00 08/09/18 19:00 08/09/18 19:00 08/09/18 19:00 08/09/18 19:00 Intake and Output: 08/09/18 08/10/18 18:59 06:59 Intake Total 578 Balance 578 - Medications Medications: Current Medications Acetaminophen (Tylenol 325mg Tab) 650 mg PO Q6H PRN PRN Reason: Fever >100.4 F Albumin Human (Albumin Human 25% (25 Gm/100 Ml)) 25 gm IV TTS PRN PRN Reason: Other Albuterol/Ipratropium (Duoneb 3 Mg/0.5 Mg (3 Ml) Ud) 3 ml IH Q2H PRN PRN Reason: Shortness of Breath Aspirin (Aspirin Chewable) 81 mg PO DAILY [facility] Last Admin: 08/09/18 13:32 Dose: 81 mg Atorvastatin Calcium (Lipitor) 40 mg PO DIN [facility] Last Admin: 08/08/18 17:45 Dose: Not Given Heparin Sodium (Porcine) (Heparin) 5,000 units SC Q8 [facility]; Protocol Last Admin: 08/09/18 13:00 Dose: Not Given Doxycycline Hyclate 100 mg/ (Sodium Chloride) 100 mls @ 100 mls/hr IVPB Q12 [facility]; Protocol Last Admin: 08/09/18 13:32 Dose: 100 mls/hr Meropenem/Sodium Chloride (Merrem Iv 500 Mg/Ns 50 Ml) 500 mg in 50 mls @ 100 mls/hr IVPB Q24H [facility]; Protocol Last Admin: 08/08/18 16:01 Dose: 100 mls/hr Metoprolol Tartrate (Lopressor) 25 mg PO BID [facility] Last Admin: 08/09/18 09:24 Dose: Not Given Ondansetron HCl (Zofran Inj) 4 mg IVP Q6H PRN PRN Reason: Nausea/Vomiting Vancomycin HCl (Vancocin 25 Mg/Ml (Oral Use)) 250 mg PO QID [facility]; Protocol Last Admin: 08/09/18 13:45 Dose: Not Given Vitamin B Complex/Vit C/Folic Acid (Nephro-Denice) 1 tab PO 0800 [facility] Last Admin: 08/09/18 09:30 Dose: Not Given - Labs Labs: 08/09/18 06:40 08/09/18 06:40 PT 24.3 SECONDS (9.4-12.5) H 08/07/18 18:49 INR 2.19 08/07/18 18:49 APTT 30.1 Seconds (26.9-38.3) 08/07/18 18:49 Assessment and Plan - Assessment and Plan (Free Text) Assessment: 53 y/o male with PMH of HTN, HLD, ESRD on HD TTS, R Renal mass presented for weakness and diarrhea for 3 days. Patient admitted for sepsis and right kidney mass Plan: Sepsis: -CT A/P: LLL consolidation r/o PNA -elevated lactate 4.8 -elevated porcal 184 -continue with vancomycin PO, meropenem, and doxycycline -blood cx negative to date -f/u urine, sputum -HIV non reactive -f/u C. difficile w/u -ID following, Dr Stephens Right kidney mass: -etiology is more likely malignancy given constitutional symptoms of non intentional weight loss, malaise, loss of appetite, and radiology findings -CT A/P: right kidney mass 12.5 cm with mets to liver and lung -IR consulted for renal biopsy. 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 clean, no pus/discharge -likely due to immoblization, recent hospitalization, deconditioning -reposition q2h -wound care Anemia of chronic disease: -H/H 7.3/22.7 on admission. Baseline 8.5 -s/p 1u pRBC transfusion -continue to monitor , transfuse prn PPX: DVT: SCD, heparin q8h GI:protonix Renal diet Case reviewed and plan discussed with attending Dr Edie Moss, DO <Anat Irizarry - Last Filed: 08/11/18 19:00> Objective - Vital Signs/Intake and Output Vital Signs (last 24 hours): Temp Pulse Resp BP Pulse Ox 98.2 F 86 20 165/79 H 97 08/11/18 17:16 08/11/18 17:16 08/11/18 17:16 08/11/18 17:16 08/11/18 10:10 Intake and Output: 08/11/18 08/11/18 06:59 18:59 Intake Total 1800 100 Balance 1800 100 - Medications Medications: Current Medications Acetaminophen (Tylenol 325mg Tab) 650 mg PO Q6H PRN PRN Reason: Fever >100.4 F Albumin Human (Albumin Human 25% (25 Gm/100 Ml)) 25 gm IV TTS PRN PRN Reason: Other Albuterol/Ipratropium (Duoneb 3 Mg/0.5 Mg (3 Ml) Ud) 3 ml IH Q2H PRN PRN Reason: Shortness of Breath Aspirin (Aspirin Chewable) 81 mg PO DAILY [facility] Last Admin: 08/11/18 12:47 Dose: 81 mg Atorvastatin Calcium (Lipitor) 40 mg PO DIN [facility] Last Admin: 08/11/18 17:18 Dose: 40 mg Doxycycline Hyclate (Doryx) 100 mg PO Q12 [facility]; Protocol Last Admin: 08/11/18 12:47 Dose: 100 mg Heparin Sodium (Porcine) (Heparin) 5,000 units SC Q8 [facility]; Protocol Last Admin: 08/11/18 13:06 Dose: Not Given Meropenem/Sodium Chloride (Merrem Iv 500 Mg/Ns 50 Ml) 500 mg in 50 mls @ 100 mls/hr IVPB Q24H [facility]; Protocol Last Admin: 08/11/18 13:00 Dose: 100 mls/hr Losartan Potassium (Cozaar) 25 mg PO QPM [facility] Last Admin: 08/11/18 17:18 Dose: 25 mg Metoprolol Tartrate (Lopressor) 25 mg PO BID [facility] Last Admin: 08/11/18 17:19 Dose: 25 mg Ondansetron HCl (Zofran Inj) 4 mg IVP Q6H PRN PRN Reason: Nausea/Vomiting Tramadol HCl (Ultram) 50 mg PO TID PRN PRN Reason: Pain, severe (8-10) Vitamin B Complex/Vit C/Folic Acid (Nephro-Denice) 1 tab PO 0800 [facility] Last Admin: 08/11/18 12:46 Dose: 1 tab - Labs Labs: 08/11/18 06:30 08/11/18 07:00 PT 24.3 SECONDS (9.4-12.5) H 08/07/18 18:49 INR 2.19 08/07/18 18:49 APTT 30.1 Seconds (26.9-38.3) 08/07/18 18:49 Attending/Attestation - Attestation I have personally seen and examined this patient.: Yes I have fully participated in the care of the patient.: Yes I have reviewed all pertinent clinical information, including history, physical exam and plan: Yes Notes (Text): 08/11/18 18:51 Attending note; Patient seen and examined with resident. Patient's by the bedside. Patient is alert and awake. Patient is a poor historian. Able to answer only few questions. Generally cachectic. Abdominal distention present. Appears chronically ill. Patient is afebrile and nontoxic. Patient is a 53yo male with past medical history of HTN, HLD, ESRD on HD (T, T, Sa), R Renal mass who came in for weakness and diarrhea for 3 days. Patient reports he has been having loose watery stool. 1. Generalized weakness/diarrhea/Chronic illness/worsening of chronic medical conditions. Currently patient has no significant diarrhea. Stool for C. difficile ordered. 2. Right renal mass; as per family 2 renal biopsies showed necrotic tissue. Patient was also told that he has lesions in the lung and the liver. Possible renal cell cancer with metastatic disease suspected. Oncology evaluation appreciated. CT abdomen and pelvis showed renal mass and multiple metastatic lesions in the liver and ascites. 3. Renal Mass; interventional radiology requested for biopsy. 4. End Stage renal disease on dialysis; continue dialysis schedule. Case discussed with certified pathology assistant in detail. 5. Anemia ; multifactorial. 1 unit PRBC transfusion ordered . 6. Hypertension; continue metoprolol. 7. Severe leukocytosis; kirk culture ordered. Mostly secondary to malignancy. ID evaluation appreciated. Started on meropenem and doxycycline. 8. Sacral decubitus; wound care ordered. 9. Elevated troponin; cardiology evaluation appreciated. Echocardiogram ordered. 10. left upper arm swelling; has fistula in the left upper arm. recent venous doppler is negative. Follow up with IR for fistulogram. Poor prognosis discussed with patient's in detail. Palliative care evaluation requested. 08/11/18 18:58
[2018-08-09] MEDS: MEROPENEM 500 MG in NS 500 MG/50 ML BAG IVPB SCH (20:52)
[2018-08-10 06:24] LABS: HEMOGLOBIN 9.6 g/dL (14.0-18.0); MEAN CELL VOLUME 87.6 fl (80.0-105.0); MEAN CORPUSCULAR HEMOGLOBIN 27.7 pg (25.0-35.0); MEAN CORPUSCULAR HGB CONC 31.6 g/dl (31.0-37.0); MEAN PLATELET VOLUME 10.6 fl (7.0-11.0); RBC 3.47 10^6/uL (3.5-6.1); RED CELL DISTRIBUTION WIDTH 18.5 % (11.5-14.5)
[2018-08-10 06:57] LABS: ALB/GLOB RATIO 0.8 (1.1-1.8); ALBUMIN 2.8 g/dL (3.0-4.8); CALCIUM 8.3 mg/dL (8.4-10.5)
--- NOTE | 2018-08-10 08:26 | CP.PCM.PN ---
Subjective - Date & Time of Evaluation Date of Evaluation: 08/10/18 Time of Evaluation: 06:15 - Subjective Subjective: Awake, sitting at side of bed,no distress Reason for consultation and follow up: Cardiac evaluation of positive borderline troponin, history of end stage renal disease on hemodialysis, hypertension, hyperlipidemia, renal mass Seen and examined by me and Dr. Meier Objective - Vital Signs/Intake and Output Vital Signs (last 24 hours): Temp Pulse Resp BP Pulse Ox 98.0 F 88 20 123/68 97 08/10/18 06:00 08/10/18 06:00 08/10/18 06:00 08/10/18 06:00 08/10/18 06:00 Intake and Output: 08/10/18 08/10/18 06:59 18:59 Intake Total 470 Balance 470 - Medications Medications: Current Medications Acetaminophen (Tylenol 325mg Tab) 650 mg PO Q6H PRN PRN Reason: Fever >100.4 F Albumin Human (Albumin Human 25% (25 Gm/100 Ml)) 25 gm IV TTS PRN PRN Reason: Other Albuterol/Ipratropium (Duoneb 3 Mg/0.5 Mg (3 Ml) Ud) 3 ml IH Q2H PRN PRN Reason: Shortness of Breath Aspirin (Aspirin Chewable) 81 mg PO DAILY [facility] Last Admin: 08/09/18 13:32 Dose: 81 mg Atorvastatin Calcium (Lipitor) 40 mg PO DIN [facility] Last Admin: 08/08/18 17:45 Dose: Not Given Heparin Sodium (Porcine) (Heparin) 5,000 units SC Q8 [facility]; Protocol Last Admin: 08/10/18 05:53 Dose: Not Given Doxycycline Hyclate 100 mg/ (Sodium Chloride) 100 mls @ 100 mls/hr IVPB Q12 [facility]; Protocol Last Admin: 08/09/18 21:54 Dose: 100 mls/hr Meropenem/Sodium Chloride (Merrem Iv 500 Mg/Ns 50 Ml) 500 mg in 50 mls @ 100 mls/hr IVPB Q24H [facility]; Protocol Last Admin: 08/09/18 20:52 Dose: 100 mls/hr Metoprolol Tartrate (Lopressor) 25 mg PO BID [facility] Last Admin: 08/09/18 09:24 Dose: Not Given Ondansetron HCl (Zofran Inj) 4 mg IVP Q6H PRN PRN Reason: Nausea/Vomiting Vancomycin HCl (Vancocin 25 Mg/Ml (Oral Use)) 250 mg PO QID [facility]; Protocol Last Admin: 08/09/18 21:55 Dose: 250 mg Vitamin B Complex/Vit C/Folic Acid (Nephro-Denice) 1 tab PO 0800 [facility] Last Admin: 08/09/18 09:30 Dose: Not Given - Labs Labs: 08/10/18 05:45 08/10/18 05:45 PT 24.3 SECONDS (9.4-12.5) H 08/07/18 18:49 INR 2.19 08/07/18 18:49 APTT 30.1 Seconds (26.9-38.3) 08/07/18 18:49 - Constitutional Appears: Non-toxic, No Acute Distress - Head Exam Head Exam: NORMAL INSPECTION, NORMOCEPHALIC - Eye Exam Eye Exam: Normal appearance Pupil Exam: NORMAL ACCOMODATION - ENT Exam ENT Exam: Mucous Membranes Moist, Normal Exam - Respiratory Exam Respiratory Exam: Decreased Breath Sounds, Clear to Ausculation Bilateral, NORMAL BREATHING PATTERN - Cardiovascular Exam Cardiovascular Exam: REGULAR RHYTHM, +S1, +S2 - GI/Abdominal Exam GI & Abdominal Exam: Soft, Normal Bowel Sounds - Extremities Exam Extremities Exam: Full ROM, Normal Capillary Refill Additional comments: left AV fistula, positive bruit left arm swelling - Neurological Exam Neurological Exam: Alert, Awake - Psychiatric Exam Psychiatric exam: Normal Affect, Normal Mood - Skin Skin Exam: Dry, Normal Color, Warm Additional comments: sacral decubitus Assessment and Plan - Assessment and Plan (Free Text) Assessment: A 53 year old male who came in to the ER due to generalized weakness and diarrhea. He was just recently discharged from [facility] for right renal mass work up. Consult was called due to borderline troponin. History of end stage renal disease on hemodialysis (TTS), hypertension, hyperlipidemia, chronic anemia, renal mass. Follows up with Dr. Childs (Oncologist). Borderline troponin secondary to chronic kidney disease, ruled out acute coronary syndrome. Denies chest pain. EKG showed normal sinus rhythm. No ischemia. No evidence of acute myocardial infarction. Medical treatment. CT of chest showed large right renal malignant neoplasm with diffuse metastasis in the lungs, and liver, large pleural based metastatic mass in the right anterior lung base and multiple presumable metastatic axillary lymph nodes. Will order echo to evaluate LV function. Cardiac status stable. Left arm swelling negative for thrombosis. Post right renal mass biopsy yesterday. Denies chest pain. Plan: Post right renal mass biopsy yesterday Feels okay, no distress Heart rate controlled Blood pressure controlled On ASA 81 mg daily,Lipitor 40 mg daily,Lopressor 25 mg BID Continue oral Vancomycin Echo to evaluate LV function Continue current treatment Continue current medications Will follow up Plan and treatment discussed with Dr. Meier
[2018-08-10] MEDS: Vancomycin 25 MG/ML PO SCH ×6 (10:00→21:05)
--- NOTE | 2018-08-10 11:20 | CP.PCM.PCO ---
Physician Communication Note - Physician Communication Note Physician Communication Note: pt at HD then for IR intervention, sepsis wokup in progress
--- NOTE | 2018-08-10 12:32 | CP.PCM.PN ---
Subjective - Date & Time of Evaluation Date of Evaluation: 08/10/18 Time of Evaluation: 12:30 - Subjective Subjective: Nephrology Consultation Note: Assessment: stable fluid overload with anasarca and likely underlying metastatic malignancy Hypertensive Chronic Kidney Disease (I12.0) End stage renal disease (N18.6) dependence on hemodialysis (Z99.2) (TTS) via AV access Anemia (D64.9), Hyperphosphatemia (E83.39), Secondary Hyperparathyroidism (E21.1), HTN (I12.0) thrombocytopenia, lactic acidosis, leukocytosis Plan: Will plan for HD as TTS schedule Continue with Nephrovite 1 tab/day. defer MAVIS use to heme/once in view of likely active malignancy. PRBC as needed. BP control with meds as ordered. Patient not on RAAS janine as BP low side Glycemic control Dialysis consistent diet Further work up/management as per primary team Dose meds/antibiotics (if needed) for ESRD status. Avoid fleets enema/magnesium based laxatives. overall prognosis poor. heme/onc following. seen by palliative care. IR consult for fistulogram. pt s/p CT guided biopsy of renal mass. f/up pathology report. Thanks for allowing me to participate in care of your patient. Will follow patient with you. Please call if any Qs. had d/w team Dr Barry Hall Office: [phone] Chief Complaint; diarrhoea, left arm swelling, confusion reason for consult: ESRD HPI: Pt is a 53 y/o with hx of ESRD on hemodialysis (TTS) x 6 months via Lt AVF, last dialysis Sat @ [facility] with Dr Reddy, chronic anemia, hyperphosphatemia, secondary hyperparathyroidism, hypertension and Rt renal mass likely with metastasis presented with complaints of confusion, diarrhoea, SOB for last few days and left arm swelling x 2 weeks pt denies any complaints in particular at this time but doesn't feel well. c/o leg swelling and abdomen distension ROS: noted overnight events Denies chest pain, palpitation, denies shortness of breath, has LUE swelling. appetite decreased. rest all other neg except as mentioned in HPI refused to continue HD after 2 hrs 30 min today. he was scheduled to get 3 hrs 30 min HD Physical Examination: seen during HD General Appearance: Comfortable, in no acute respiratory distress, co-operative . ill appearing Vitals reviewed and noted as below Head; Atraumatic, normocephalic ENT: no ulcers no thrush. Tongue is midline. Oropharynx: no rash EYES: Pupils are equal, round and reactive to light accommodation. Eye muscles and extraocular movement intact. Sclera is icteric. Neck; supple no lymphadenopathy, no thyromegaly or bruit. Rt infraclavicular hollowing and Rt sternal head prominence noted. also has lump over mid sternal area Lungs: Improved respiratory rate/effort. Breath sounds bilateral reduced at bases. Heart: Normal rate. s1s2 normal. No rub or gallop. Extremities: 1+ edema. No varicose veins. Neurological: Patient is alert, awake and oriented but confused. No focal deficit. Strength bilateral appropriate and equal. Skin: Warm and dry. Normal turgor. No rash. Palpitation: Normal elasticity for age Abdomen: Abdomen is distended with abdominal wall edema. Bowel sounds +. There is no abdominal tenderness, no guarding/rigidity. has hepatomegaly Psych: limited insight and normal affect/mood MSK: no joint tenderness or swelling. Digits and nails normal, no deformity : kidney or bladder not palpable Access: Lt AV access with thrill and bruit. left forearm grossly swollen Labs/imaging reviewed. Past medical history, past surgical history, family history, social history, allergy reviewed and noted as below Family Hx: no hx of CKD. Non contributory Objective - Vital Signs/Intake and Output Vital Signs (last 24 hours): Temp Pulse Resp BP Pulse Ox 98.0 F 86 20 123/68 97 08/10/18 06:00 08/10/18 10:00 08/10/18 06:00 08/10/18 06:00 08/10/18 06:00 Intake and Output: 08/10/18 08/10/18 06:59 18:59 Intake Total 470 Balance 470 - Medications Medications: Current Medications Acetaminophen (Tylenol 325mg Tab) 650 mg PO Q6H PRN PRN Reason: Fever >100.4 F Albumin Human (Albumin Human 25% (25 Gm/100 Ml)) 25 gm IV TTS PRN PRN Reason: Other Albuterol/Ipratropium (Duoneb 3 Mg/0.5 Mg (3 Ml) Ud) 3 ml IH Q2H PRN PRN Reason: Shortness of Breath Aspirin (Aspirin Chewable) 81 mg PO DAILY [facility] Last Admin: 08/09/18 13:32 Dose: 81 mg Atorvastatin Calcium (Lipitor) 40 mg PO DIN [facility] Last Admin: 08/08/18 17:45 Dose: Not Given Heparin Sodium (Porcine) (Heparin) 5,000 units SC Q8 [facility]; Protocol Last Admin: 08/10/18 05:53 Dose: Not Given Doxycycline Hyclate 100 mg/ (Sodium Chloride) 100 mls @ 100 mls/hr IVPB Q12 [facility]; Protocol Last Admin: 08/09/18 21:54 Dose: 100 mls/hr Meropenem/Sodium Chloride (Merrem Iv 500 Mg/Ns 50 Ml) 500 mg in 50 mls @ 100 mls/hr IVPB Q24H [facility]; Protocol Last Admin: 08/09/18 20:52 Dose: 100 mls/hr Metoprolol Tartrate (Lopressor) 25 mg PO BID [facility] Last Admin: 08/09/18 09:24 Dose: Not Given Ondansetron HCl (Zofran Inj) 4 mg IVP Q6H PRN PRN Reason: Nausea/Vomiting Vancomycin HCl (Vancocin 25 Mg/Ml (Oral Use)) 250 mg PO QID [facility]; Protocol Last Admin: 08/09/18 21:55 Dose: 250 mg Vitamin B Complex/Vit C/Folic Acid (Nephro-Denice) 1 tab PO 0800 [facility] Last Admin: 08/09/18 09:30 Dose: Not Given - Labs Labs: 08/10/18 05:45 08/10/18 05:45 PT 24.3 SECONDS (9.4-12.5) H 08/07/18 18:49 INR 2.19 08/07/18 18:49 APTT 30.1 Seconds (26.9-38.3) 08/07/18 18:49
[2018-08-10] MEDS: Multivitamin Vitamin B Complex (Nephro-Vite) Tab PO SCH (13:09)
--- NOTE | 2018-08-10 13:50 | RAD ---
Date of service: 08/10/2018 HISTORY: r/o pneumonia COMPARISON: 08/07/2018 chest x-ray. CT chest abdomen and pelvic report 08/07/2018 TECHNIQUE: 1 view obtained. FINDINGS: LUNGS: Diffuse innumerable tiny nodules throughout the lung overlap with a reticular nodular pathology. Concomitant airspace opacity in the left mid lung zone at the medial right lung base present and similar. PLEURA: Small left pleural effusion similar. No pneumothorax seen. CARDIOVASCULAR: No aortic atherosclerotic calcification present. Cardiomegaly-similar concomitant mild pulmonary venous congestion probable. No interval change in this appearance. OSSEOUS STRUCTURES: No fracture seen VISUALIZED UPPER ABDOMEN: Normal. OTHER FINDINGS: None. IMPRESSION: No interval change seen in the miliary/reticular nodular lung parenchymal pathology suggested. Airspace confluency in the left mid lung zone and medial right lung base-similar Metastatic and/or infectious inflammation etiology inferred. Chronicity unknown. Correlate clinically
[2018-08-10] MEDS: MEROPENEM 500 MG in NS 500 MG/50 ML BAG IVPB SCH (14:19)
--- NOTE | 2018-08-10 15:32 | CP.PCM.PN ---
<Greyson Monterroso - Last Filed: 08/10/18 15:28> Subjective - Date & Time of Evaluation Date of Evaluation: 08/10/18 Time of Evaluation: 10:00 - Subjective Subjective: Infectious disease progress note: Patient seen and examined at bedside. No acute events overnight. Denies any further episodes of diarrhea. s/p kidney biopsy yesterday. No other complaints. 12 point ROS performed and negative unless stated above. Objective - Vital Signs/Intake and Output Vital Signs (last 24 hours): Temp Pulse Resp BP Pulse Ox 98.0 F 93 H 20 144/72 97 08/10/18 06:00 08/10/18 14:00 08/10/18 06:00 08/10/18 13:08 08/10/18 06:00 Intake and Output: 08/10/18 08/10/18 06:59 18:59 Intake Total 470 Balance 470 - Medications Medications: Current Medications Acetaminophen (Tylenol 325mg Tab) 650 mg PO Q6H PRN PRN Reason: Fever >100.4 F Albumin Human (Albumin Human 25% (25 Gm/100 Ml)) 25 gm IV TTS PRN PRN Reason: Other Albuterol/Ipratropium (Duoneb 3 Mg/0.5 Mg (3 Ml) Ud) 3 ml IH Q2H PRN PRN Reason: Shortness of Breath Aspirin (Aspirin Chewable) 81 mg PO DAILY [facility] Last Admin: 08/10/18 13:07 Dose: 81 mg Atorvastatin Calcium (Lipitor) 40 mg PO DIN [facility] Last Admin: 08/08/18 17:45 Dose: Not Given Heparin Sodium (Porcine) (Heparin) 5,000 units SC Q8 [facility]; Protocol Last Admin: 08/10/18 13:08 Dose: Not Given Meropenem/Sodium Chloride (Merrem Iv 500 Mg/Ns 50 Ml) 500 mg in 50 mls @ 100 mls/hr IVPB Q24H [facility]; Protocol Last Admin: 08/10/18 14:19 Dose: 100 mls/hr Metoprolol Tartrate (Lopressor) 25 mg PO BID [facility] Last Admin: 08/10/18 13:08 Dose: 25 mg Ondansetron HCl (Zofran Inj) 4 mg IVP Q6H PRN PRN Reason: Nausea/Vomiting Vancomycin HCl (Vancocin 25 Mg/Ml (Oral Use)) 250 mg PO QID [facility]; Protocol Last Admin: 08/10/18 13:09 Dose: 250 mg Vitamin B Complex/Vit C/Folic Acid (Nephro-Denice) 1 tab PO 0800 [facility] Last Admin: 08/10/18 13:09 Dose: 1 tab - Labs Labs: 08/10/18 05:45 08/10/18 05:45 PT 24.3 SECONDS (9.4-12.5) H 08/07/18 18:49 INR 2.19 08/07/18 18:49 APTT 30.1 Seconds (26.9-38.3) 08/07/18 18:49 - Constitutional Appears: No Acute Distress - Head Exam Head Exam: ATRAUMATIC, NORMOCEPHALIC - Eye Exam Eye Exam: EOMI - ENT Exam ENT Exam: Mucous Membranes Moist - Respiratory Exam Respiratory Exam: Clear to Ausculation Bilateral. absent: Wheezes - Cardiovascular Exam Cardiovascular Exam: REGULAR RHYTHM, +S1, +S2 - GI/Abdominal Exam GI & Abdominal Exam: Soft. absent: Tenderness - Extremities Exam Extremities Exam: absent: Calf Tenderness, Pedal Edema Additional comments: LUE edema - Neurological Exam Neurological Exam: Alert, Awake - Psychiatric Exam Psychiatric exam: Normal Mood - Skin Skin Exam: Dry, Warm Assessment and Plan - Assessment and Plan (Free Text) Assessment: Sepsis 2/2 HCAP Right renal mass with metastatic disease to the liver and lung s/p biopsy of renal mass Elevated troponin Anasarca ESRD on HD Anemia Hypertension Cont with vancomycin PO, meropenem, and doxycycline Day 3, will switch Doxy to PO F/u pathology of renal biopsy F/u L upper ext US neg for DVT Follow-up septic work-up, blood, urine, sputum, MRSA screen Follow-up C. difficile work-up - awaiting results Follow-up with cardiology, hematology, and palliative care consultations Continue to monitor for any changes Case and plan to be reviewed and discussed with Dr. Stephens <Stu Stephens - Last Filed: 08/10/18 15:52> Objective - Vital Signs/Intake and Output Vital Signs (last 24 hours): Temp Pulse Resp BP Pulse Ox 98.3 F 93 H 18 144/72 95 08/10/18 13:00 08/10/18 14:00 08/10/18 13:00 08/10/18 13:08 08/10/18 13:00 Intake and Output: 08/10/18 08/10/18 06:59 18:59 Intake Total 470 Balance 470 - Medications Medications: Current Medications Acetaminophen (Tylenol 325mg Tab) 650 mg PO Q6H PRN PRN Reason: Fever >100.4 F Albumin Human (Albumin Human 25% (25 Gm/100 Ml)) 25 gm IV TTS PRN PRN Reason: Other Albuterol/Ipratropium (Duoneb 3 Mg/0.5 Mg (3 Ml) Ud) 3 ml IH Q2H PRN PRN Reason: Shortness of Breath Aspirin (Aspirin Chewable) 81 mg PO DAILY [facility] Last Admin: 08/10/18 13:07 Dose: 81 mg Atorvastatin Calcium (Lipitor) 40 mg PO DIN [facility] Last Admin: 08/08/18 17:45 Dose: Not Given Doxycycline Hyclate (Doryx) 100 mg PO Q12 [facility]; Protocol Heparin Sodium (Porcine) (Heparin) 5,000 units SC Q8 [facility]; Protocol Last Admin: 08/10/18 13:08 Dose: Not Given Meropenem/Sodium Chloride (Merrem Iv 500 Mg/Ns 50 Ml) 500 mg in 50 mls @ 100 mls/hr IVPB Q24H [facility]; Protocol Last Admin: 08/10/18 14:19 Dose: 100 mls/hr Metoprolol Tartrate (Lopressor) 25 mg PO BID [facility] Last Admin: 08/10/18 13:08 Dose: 25 mg Ondansetron HCl (Zofran Inj) 4 mg IVP Q6H PRN PRN Reason: Nausea/Vomiting Vancomycin HCl (Vancocin 25 Mg/Ml (Oral Use)) 250 mg PO QID [facility]; Protocol Last Admin: 08/10/18 13:09 Dose: 250 mg Vitamin B Complex/Vit C/Folic Acid (Nephro-Denice) 1 tab PO 0800 [facility] Last Admin: 08/10/18 13:09 Dose: 1 tab - Labs Labs: 08/10/18 05:45 08/10/18 05:45 PT 24.3 SECONDS (9.4-12.5) H 08/07/18 18:49 INR 2.19 08/07/18 18:49 APTT 30.1 Seconds (26.9-38.3) 08/07/18 18:49 Attending/Attestation - Attestation I have personally seen and examined this patient.: Yes I have fully participated in the care of the patient.: Yes I have reviewed all pertinent clinical information, including history, physical exam and plan: Yes
--- NOTE | 2018-08-10 15:44 | CP.PCM.PN ---
<Reji Moss - Last Filed: 08/10/18 15:54> Subjective - Date & Time of Evaluation Date of Evaluation: 08/10/18 Time of Evaluation: 07:30 - Subjective Subjective: Reji Moss DO PGY1 Hospitalist Progress Note for Dr Irizarry Patient seen and examined at bedside. Patient still feels weak, lethargic with some improvement since admission. He denies fever, chills, CP, SOB. Had regular bowel movement this am. Objective - Vital Signs/Intake and Output Vital Signs (last 24 hours): Temp Pulse Resp BP Pulse Ox 98.3 F 93 H 18 144/72 95 08/10/18 13:00 08/10/18 14:00 08/10/18 13:00 08/10/18 13:08 08/10/18 13:00 Intake and Output: 08/10/18 08/10/18 06:59 18:59 Intake Total 470 Balance 470 - Medications Medications: Current Medications Acetaminophen (Tylenol 325mg Tab) 650 mg PO Q6H PRN PRN Reason: Fever >100.4 F Albumin Human (Albumin Human 25% (25 Gm/100 Ml)) 25 gm IV TTS PRN PRN Reason: Other Albuterol/Ipratropium (Duoneb 3 Mg/0.5 Mg (3 Ml) Ud) 3 ml IH Q2H PRN PRN Reason: Shortness of Breath Aspirin (Aspirin Chewable) 81 mg PO DAILY [facility] Last Admin: 08/10/18 13:07 Dose: 81 mg Atorvastatin Calcium (Lipitor) 40 mg PO DIN [facility] Last Admin: 08/08/18 17:45 Dose: Not Given Doxycycline Hyclate (Doryx) 100 mg PO Q12 [facility]; Protocol Heparin Sodium (Porcine) (Heparin) 5,000 units SC Q8 [facility]; Protocol Last Admin: 08/10/18 13:08 Dose: Not Given Meropenem/Sodium Chloride (Merrem Iv 500 Mg/Ns 50 Ml) 500 mg in 50 mls @ 100 mls/hr IVPB Q24H [facility]; Protocol Last Admin: 08/10/18 14:19 Dose: 100 mls/hr Metoprolol Tartrate (Lopressor) 25 mg PO BID [facility] Last Admin: 08/10/18 13:08 Dose: 25 mg Ondansetron HCl (Zofran Inj) 4 mg IVP Q6H PRN PRN Reason: Nausea/Vomiting Vancomycin HCl (Vancocin 25 Mg/Ml (Oral Use)) 250 mg PO QID [facility]; Protocol Last Admin: 08/10/18 13:09 Dose: 250 mg Vitamin B Complex/Vit C/Folic Acid (Nephro-Denice) 1 tab PO 0800 [facility] Last Admin: 08/10/18 13:09 Dose: 1 tab - Labs Labs: 08/10/18 05:45 08/10/18 05:45 PT 24.3 SECONDS (9.4-12.5) H 08/07/18 18:49 INR 2.19 08/07/18 18:49 APTT 30.1 Seconds (26.9-38.3) 08/07/18 18:49 - Constitutional Appears: No Acute Distress, Cachectic, Chronically Ill - Head Exam Head Exam: ATRAUMATIC, NORMAL INSPECTION, NORMOCEPHALIC - Eye Exam Eye Exam: EOMI - ENT Exam ENT Exam: Mucous Membranes Moist - Neck Exam Neck Exam: Full ROM - Respiratory Exam Respiratory Exam: Clear to Ausculation Bilateral. absent: Rhonchi, Wheezes Additional comments: soft tissue swelling at xiphoid process, no discharge, no erythema, no open wound, non tender to touch, no change in temp - Cardiovascular Exam Cardiovascular Exam: +S1, +S2. absent: Gallop, JVD, RRR - GI/Abdominal Exam GI & Abdominal Exam: Soft, Normal Bowel Sounds. absent: Tenderness - Extremities Exam Extremities Exam: Full ROM, Normal Capillary Refill, Normal Inspection, Pedal Edema. absent: Joint Swelling - Back Exam Additional comments: decubitus ulcers, stage 2, lower sacrum, 2 cm in diameter, no discharge, dressing applied - Neurological Exam Neurological Exam: Alert, Awake - Psychiatric Exam Psychiatric exam: Depressed, Flat Affect - Skin Skin Exam: Dry, Intact, Normal Color, Warm Assessment and Plan - Assessment and Plan (Free Text) Assessment: 53 y/o male with PMH of HTN, HLD, ESRD on HD TTS, R Renal mass presented for weakness and diarrhea for 3 days. Patient admitted for sepsis and right kidney mass Plan: Sepsis: -CT A/P: LLL consolidation r/o PNA -elevated lactate 4.8 -elevated porcal 184 -continue with vancomycin PO, meropenem, and doxycycline po -blood cx negative to date -f/u urine, sputum -HIV non reactive -f/u C. difficile w/u -ID following, Dr Stephens Right kidney mass: -etiology is more likely malignancy given constitutional symptoms of non-intentional weight loss, malaise, loss of appetite, and radiology findings -CT A/P: right kidney mass 12.5 cm with mets to liver and lung -s/p CT-guided biposy of right kidney. 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 clean, no pus/discharge -likely due to immoblization, recent hospitalization, deconditioning -reposition q2h -wound care Anemia of chronic disease: -H/H 7.3/22.7 on admission. Baseline 8.5 -s/p 1u pRBC transfusion -continue to monitor , transfuse prn PPX: DVT: SCD, heparin q8h GI:protonix Renal diet PT: recommended PRETTY. social insurance administrator following Case reviewed and plan discussed with attending Dr Edie Moss, DO <Anat Irizarry - Last Filed: 08/12/18 11:51> Objective - Vital Signs/Intake and Output Vital Signs (last 24 hours): Temp Pulse Resp BP Pulse Ox 98.5 F 89 20 169/80 H 96 08/12/18 07:56 08/12/18 07:56 08/12/18 07:56 08/12/18 07:56 08/12/18 07:56 Intake and Output: 08/12/18 08/12/18 06:59 18:59 Intake Total 120 Balance 120 - Medications Medications: Current Medications Acetaminophen (Tylenol 325mg Tab) 650 mg PO Q6H PRN PRN Reason: Fever >100.4 F Albumin Human (Albumin Human 25% (25 Gm/100 Ml)) 25 gm IV TTS PRN PRN Reason: Other Albuterol/Ipratropium (Duoneb 3 Mg/0.5 Mg (3 Ml) Ud) 3 ml IH Q2H PRN PRN Reason: Shortness of Breath Aspirin (Aspirin Chewable) 81 mg PO DAILY [facility] Last Admin: 08/12/18 10:19 Dose: 81 mg Atorvastatin Calcium (Lipitor) 40 mg PO DIN [facility] Last Admin: 08/11/18 17:18 Dose: 40 mg Heparin Sodium (Porcine) (Heparin) 5,000 units SC Q8 [facility]; Protocol Last Admin: 08/12/18 06:05 Dose: Not Given Losartan Potassium (Cozaar) 25 mg PO QPM [facility] Last Admin: 08/11/18 17:18 Dose: 25 mg Metoprolol Tartrate (Lopressor) 25 mg PO BID [facility] Last Admin: 08/12/18 10:54 Dose: Not Given Ondansetron HCl (Zofran Inj) 4 mg IVP Q6H PRN PRN Reason: Nausea/Vomiting Tramadol HCl (Ultram) 50 mg PO TID PRN PRN Reason: Pain, severe (8-10) Last Admin: 08/12/18 07:02 Dose: 50 mg Vitamin B Complex/Vit C/Folic Acid (Nephro-Denice) 1 tab PO 0800 [facility] Last Admin: 08/12/18 10:18 Dose: 1 tab - Labs Labs: 08/11/18 06:30 08/11/18 07:00 PT 24.3 SECONDS (9.4-12.5) H 08/07/18 18:49 INR 2.19 08/07/18 18:49 APTT 30.1 Seconds (26.9-38.3) 08/07/18 18:49 Attending/Attestation - Attestation I have personally seen and examined this patient.: Yes I have fully participated in the care of the patient.: Yes I have reviewed all pertinent clinical information, including history, physical exam and plan: Yes Notes (Text): Attending note; Patient seen and examined with resident. getting HD. Patient is alert and awake. Able to answer only few questions. cachectic. Abdominal distention present. Appears chronically ill. Patient is afebrile and nontoxic. Patient is a 53yo male with past medical history of HTN, HLD, ESRD on HD (T, T, Sa), R Renal mass who came in for weakness and diarrhea for 3 days. 1. Generalized weakness/diarrhea/Chronic illness/worsening of chronic medical conditions. Currently patient has no significant diarrhea. tolerating diet. 2. Right renal mass; as per family 2 renal biopsies showed necrotic tissue. Patient was also told that he has lesions in the lung and the liver. Possible renal cell cancer with metastatic disease suspected. Oncology evaluation appreciated. CT abdomen and pelvis showed renal mass and multiple metastatic lesions in the liver and ascites. 3. Renal Mass; interventional radiology requested for biopsy.s/p renal biopsy yesterday. pending results. 4. End Stage renal disease on dialysis; continue dialysis schedule. Case discussed with numerical analysis group manager in detail. 5. Anemia ; multifactorial. 1 unit PRBC transfusion given. HB is 10.6. 6. Hypertension; continue metoprolol. 7. Severe leukocytosis; wbc is 42. blood culture negative so far. Mostly secondary to malignancy. ID evaluation appreciated. Started on meropenem and doxycycline. The chest showed left lower lobe consolidation. 8. Sacral decubitus; continue wound care 9. Cardiomyopathy /elevated troponin; cardiology evaluation appreciated. Echocardiogram showed ejection fraction of 36% and moderate left pleural effusion and moderate pulmonary hypertension. Cardiology evaluation appreciated. 10. left upper arm swelling; has fistula in the left upper arm. venous doppler is negative. Follow up with IR for fistulogram. Poor prognosis discussed with patient's in detail. Palliative care evaluation appreciated. Prognosis is poor. 08/12/18 11:50
--- NOTE | 2018-08-10 17:17 | CARD ---
APPROVED REPORT Date of service: 08/10/2018 EXAM: Two-dimensional and M-mode echocardiogram with Doppler and color Doppler. INDICATION MR,TR,LVFX 2D DIMENSIONS Left Atrium (2D)5.0 (1.6-4.0cm)IVSd2.1 (0.7-1.1cm) LVDd6.0 (3.9-5.9cm)PWd2.3 (0.7-1.1cm) LVDs4.9 (2.5-4.0cm)FS (%) 17.8 % LVEF (%)36.7 (>50%) M-Mode DIMENSIONS Aortic Root3.50 (2.2-3.7cm)Aortic Cusp Exc.2.10 (1.5-2.0cm) Aortic Valve AoV Peak Zocoadtr192.0cm/Tiff Peak GR.22mmHg Mitral Valve MV E Ipcukpis10.7cm/sMV A Reilteis386.0cm/sE/A ratio0.9 TDI Lateral E' Peak V8.09cm/sE/Lateral E'12.2E/Medial E'0.0 Pulmonary Valve PV Peak Vrpqhddi94.0cm/sPV Peak Grad.2mmHg Tricuspid Valve TR Peak [id number]/sRAP [id number] Peak Gr.40mmHg [id number] LEFT VENTRICLE The Left Ventricle is mildly dilated. There is moderate concentric left ventricular hypertrophy. The systolic function is moderately impaired.EF-35% There is global hypokinesis of the left ventricle. Transmitral Doppler flow pattern is Grade III-reversible restrictive diastolic dysfunction. No left ventricle thrombus noted on this study. There is no ventricular septal defect visualized. There is no left ventricular aneurysm. There is no mass noted in the left ventricle. RIGHT VENTRICLE The right ventricle is mildly dilated. The right ventricle is mildly hypertrophied. Systolic function is mildly reduced. ATRIA The left atrium is mildly dilated. The right atrium is mildly dilated. The interatrial septum is intact with no evidence for an atrial septal defect. AORTIC VALVE The aortic valve is thickened but opens well. There is trace aortic regurgitation. There is no aortic valvular stenosis. There is no aortic valvular vegetation. MITRAL VALVE The mitral valve is thickened but opens well. Mitral regurgitation is mild to moderate. There is no mitral valve stenosis. There is no evidence of mitral valve prolapse. TRICUSPID VALVE The tricuspid valve leaflets are thickened , but open well. There is mild to moderate tricuspid regurgitation.RVSDP_50 mmof Hg There is mild to moderate pulmonary hypertension. There is no tricuspid valve stenosis. There is no tricuspid valve prolapse or vegetation. PULMONIC VALVE The pulmonary valve is normal in structure. There is trace pulmonic valvular regurgitation. There is no pulmonic valvular stenosis. GREAT VESSELS The aortic root is normal in size. The ascending aorta is normal in size. The pulmonary artery is normal. The IVC is normal in size and collapses >50% with inspiration. PERICARDIAL EFFUSION There is moderate left pleural effusion. There is a trace pericardial effusion. <Conclusion> Four chamber dilatation c/w CMP. There is moderate concentric left ventricular hypertrophy. The systolic function is moderately impaired.EF-35% Mitral regurgitation is mild to moderate. The IVC is normal in size and collapses >50% with inspiration. There is moderate left pleural effusion. There is a trace pericardial effusion. There is mild to moderate pulmonary hypertension.
[2018-08-11] MEDS ORDERED: Iodixanol 320 mg/ml 150 ml Bottle IV ONE (06:57)
[2018-08-11] MEDS ORDERED: Lidocaine PF 2% (5 ml) Inj (For Cardiac Arrhy) ONE (06:57)
[2018-08-11] MEDS ORDERED: Nitroglycerin 50mg in D5W 50 MG/250 ML BOTTLE IV ONE (06:59)
[2018-08-11 07:10] LABS: HEMOGLOBIN 9.8 g/dL (14.0-18.0); MEAN CELL VOLUME 89.7 fl (80.0-105.0); MEAN CORPUSCULAR HGB CONC 31.2 g/dl (31.0-37.0); MEAN PLATELET VOLUME 10.7 fl (7.0-11.0); RBC 3.5 10^6/uL (3.5-6.1); RED CELL DISTRIBUTION WIDTH 19.2 % (11.5-14.5)
[2018-08-11 07:25] LABS: WHITE BLOOD COUNT 57.3 10^3/uL (4.5-11.0)
--- NOTE | 2018-08-11 07:30 | CP.PCM.PN ---
Subjective - Date & Time of Evaluation Date of Evaluation: 08/11/18 Time of Evaluation: 06:35 - Subjective Subjective: Awake, Lying in bed,no distress Reason for consultation and follow up: Cardiac evaluation of positive borderline troponin, history of end stage renal disease on hemodialysis, hypertension, hyperlipidemia, renal mass Seen and examined by me and Dr. Meier Objective - Vital Signs/Intake and Output Vital Signs (last 24 hours): Temp Pulse Resp BP Pulse Ox 97.8 F 83 20 160/74 H 97 08/11/18 06:00 08/11/18 06:00 08/11/18 06:00 08/11/18 06:00 08/11/18 06:00 Intake and Output: 08/11/18 08/11/18 06:59 18:59 Intake Total 1800 Balance 1800 - Medications Medications: Current Medications Acetaminophen (Tylenol 325mg Tab) 650 mg PO Q6H PRN PRN Reason: Fever >100.4 F Albumin Human (Albumin Human 25% (25 Gm/100 Ml)) 25 gm IV TTS PRN PRN Reason: Other Albuterol/Ipratropium (Duoneb 3 Mg/0.5 Mg (3 Ml) Ud) 3 ml IH Q2H PRN PRN Reason: Shortness of Breath Aspirin (Aspirin Chewable) 81 mg PO DAILY [facility] Last Admin: 08/10/18 13:07 Dose: 81 mg Atorvastatin Calcium (Lipitor) 40 mg PO DIN [facility] Last Admin: 08/10/18 17:42 Dose: Not Given Doxycycline Hyclate (Doryx) 100 mg PO Q12 [facility]; Protocol Last Admin: 08/10/18 21:00 Dose: 100 mg Heparin Sodium (Porcine) (Heparin) 5,000 units SC Q8 [facility]; Protocol Last Admin: 08/11/18 05:29 Dose: Not Given Meropenem/Sodium Chloride (Merrem Iv 500 Mg/Ns 50 Ml) 500 mg in 50 mls @ 100 mls/hr IVPB Q24H [facility]; Protocol Last Admin: 08/10/18 14:19 Dose: 100 mls/hr Metoprolol Tartrate (Lopressor) 25 mg PO BID [facility] Last Admin: 08/10/18 17:42 Dose: Not Given Ondansetron HCl (Zofran Inj) 4 mg IVP Q6H PRN PRN Reason: Nausea/Vomiting Tramadol HCl (Ultram) 50 mg PO TID PRN PRN Reason: Pain, severe (8-10) Vancomycin HCl (Vancocin 25 Mg/Ml (Oral Use)) 250 mg PO QID [facility]; Protocol Last Admin: 08/10/18 21:05 Dose: Not Given Vitamin B Complex/Vit C/Folic Acid (Nephro-Denice) 1 tab PO 0800 [facility] Last Admin: 08/10/18 13:09 Dose: 1 tab - Labs Labs: 08/11/18 06:30 08/10/18 05:45 PT 24.3 SECONDS (9.4-12.5) H 08/07/18 18:49 INR 2.19 08/07/18 18:49 APTT 30.1 Seconds (26.9-38.3) 08/07/18 18:49 - Constitutional Appears: Non-toxic, No Acute Distress - Head Exam Head Exam: NORMAL INSPECTION, NORMOCEPHALIC - Eye Exam Eye Exam: Normal appearance Pupil Exam: NORMAL ACCOMODATION - ENT Exam ENT Exam: Mucous Membranes Moist, Normal Exam - Respiratory Exam Respiratory Exam: Decreased Breath Sounds, Clear to Ausculation Bilateral, NORMAL BREATHING PATTERN - Cardiovascular Exam Cardiovascular Exam: REGULAR RHYTHM, +S1, +S2 - GI/Abdominal Exam GI & Abdominal Exam: Soft, Normal Bowel Sounds - Extremities Exam Extremities Exam: Full ROM, Normal Capillary Refill Additional comments: left AV fistula, positive bruit left arm swelling - Neurological Exam Neurological Exam: Alert, Awake, Oriented x3 - Psychiatric Exam Psychiatric exam: Normal Affect, Normal Mood - Skin Skin Exam: Dry, Normal Color, Warm Assessment and Plan - Assessment and Plan (Free Text) Assessment: A 53 year old male who came in to the ER due to generalized weakness and diarrhea. He was just recently discharged from [facility] for right renal mass work up. Consult was called due to borderline troponin. History of end stage renal disease on hemodialysis (TTS), hypertension, hyperlipidemia, chronic anemia, renal mass. Follows up with Dr. Childs (Oncologist). Borderline troponin secondary to chronic kidney disease, ruled out acute coronary syndrome. Denies chest pain. EKG showed normal sinus rhythm. No ischemia. No evidence of acute myocardial infarction. Medical treatment. CT of chest showed large right renal malignant neoplasm with diffuse metastasis in the lungs, and liver, large pleural based metastatic mass in the right anterior lung base and multiple presumable metastatic axillary lymph nodes. Left arm swelling negative for thrombosis. Post right renal mass biopsy. Cardiac status stable.Denies chest pain. Echo done and showed four chambers dilatation consistent with cardiomyopathy LVEF 35%, mild to moderate MR, moderate left pleural effusion, trace pericardial effusion, mild to moderate pulmonary hypertension. On hemod ialysis. Denies shortness of breath. Plan: Feels okay, no distress Heart rate controlled Blood pressure controlled Cardiac status stable On ASA 81 mg daily,Lipitor 40 mg daily,Lopressor 25 mg BID Continue oral Vancomycin Continue current treatment Continue current medications Discharge planning IR to evaluate left arm swelling/fistulogram Will follow up Plan and treatment discussed with Dr. Meier
[2018-08-11 07:51] LABS: ALB/GLOB RATIO 0.8 (1.1-1.8); ALBUMIN 2.8 g/dL (3.0-4.8); CALCIUM 8.8 mg/dL (8.4-10.5)
[2018-08-11] MEDS ORDERED: Midazolam 2 MG/2 ML VIAL ONE ×2 (08:09→08:26)
[2018-08-11] MEDS: Multivitamin Vitamin B Complex (Nephro-Vite) Tab PO SCH ×2 (08:16→12:46)
--- NOTE | 2018-08-11 08:24 | CP.PCM.PN ---
<Reji Moss - Last Filed: 08/11/18 12:57> Subjective - Date & Time of Evaluation Date of Evaluation: 08/11/18 Time of Evaluation: 10:00 - Subjective Subjective: Reji Moss DO PGY1 Hospitalist Progress Note for Dr Irizarry Patient seen and examined at bedside after fislulogram procedure. Patient is very lethargic, confused and unable to verbally communicate. No acute event overnight as per nursing staff. Objective - Vital Signs/Intake and Output Vital Signs (last 24 hours): Temp Pulse Resp BP Pulse Ox 97.8 F 83 20 160/74 H 97 08/11/18 06:00 08/11/18 06:00 08/11/18 06:00 08/11/18 06:00 08/11/18 06:00 Intake and Output: 08/11/18 08/11/18 06:59 18:59 Intake Total 1800 Balance 1800 - Medications Medications: Current Medications Acetaminophen (Tylenol 325mg Tab) 650 mg PO Q6H PRN PRN Reason: Fever >100.4 F Albumin Human (Albumin Human 25% (25 Gm/100 Ml)) 25 gm IV TTS PRN PRN Reason: Other Albuterol/Ipratropium (Duoneb 3 Mg/0.5 Mg (3 Ml) Ud) 3 ml IH Q2H PRN PRN Reason: Shortness of Breath Aspirin (Aspirin Chewable) 81 mg PO DAILY [facility] Last Admin: 08/10/18 13:07 Dose: 81 mg Atorvastatin Calcium (Lipitor) 40 mg PO DIN [facility] Last Admin: 08/10/18 17:42 Dose: Not Given Doxycycline Hyclate (Doryx) 100 mg PO Q12 [facility]; Protocol Last Admin: 08/10/18 21:00 Dose: 100 mg Heparin Sodium (Porcine) (Heparin) 5,000 units SC Q8 [facility]; Protocol Last Admin: 08/11/18 05:29 Dose: Not Given Meropenem/Sodium Chloride (Merrem Iv 500 Mg/Ns 50 Ml) 500 mg in 50 mls @ 100 mls/hr IVPB Q24H [facility]; Protocol Last Admin: 08/10/18 14:19 Dose: 100 mls/hr Metoprolol Tartrate (Lopressor) 25 mg PO BID [facility] Last Admin: 08/10/18 17:42 Dose: Not Given Ondansetron HCl (Zofran Inj) 4 mg IVP Q6H PRN PRN Reason: Nausea/Vomiting Tramadol HCl (Ultram) 50 mg PO TID PRN PRN Reason: Pain, severe (8-10) Vancomycin HCl (Vancocin 25 Mg/Ml (Oral Use)) 250 mg PO QID [facility]; Protocol Last Admin: 08/10/18 21:05 Dose: Not Given Vitamin B Complex/Vit C/Folic Acid (Nephro-Denice) 1 tab PO 0800 [facility] Last Admin: 08/11/18 08:16 Dose: Not Given - Labs Labs: 08/11/18 06:30 08/11/18 07:00 PT 24.3 SECONDS (9.4-12.5) H 08/07/18 18:49 INR 2.19 08/07/18 18:49 APTT 30.1 Seconds (26.9-38.3) 08/07/18 18:49 - Additional Findings Additional findings: - Constitutional Appears: No Acute Distress, Cachectic, Chronically Ill - Head Exam Head Exam: ATRAUMATIC, NORMAL INSPECTION, NORMOCEPHALIC - Eye Exam Eye Exam: EOMI - ENT Exam ENT Exam: Mucous Membranes Moist - Neck Exam Neck Exam: Full ROM - Respiratory Exam Respiratory Exam: Clear to Ausculation Bilateral. absent: Rhonchi, Wheezes Additional comments: soft tissue swelling at xiphoid process, no discharge, no erythema, no open wound, non tender to touch, no change in temp - Cardiovascular Exam Cardiovascular Exam: +S1, +S2. absent: Gallop, JVD, RRR - GI/Abdominal Exam GI & Abdominal Exam: Soft, Normal Bowel Sounds. absent: Tenderness - Extremities Exam Extremities Exam: Full ROM, Normal Capillary Refill, Normal Inspection, Pedal Edema. absent: Joint Swelling - Back Exam Additional comments: decubitus ulcers, stage 2, lower sacrum, 2 cm in diameter, no discharge, dressing applied - Neurological Exam Neurological Exam: Alert, Awake - Psychiatric Exam Psychiatric exam: Depressed, Flat Affect - Skin Skin Exam: Dry, Intact, Normal Color, Warm Assessment and Plan - Assessment and Plan (Free Text) Assessment: 53 y/o male with PMH of HTN, HLD, ESRD on HD TTS, R Renal mass presented for weakness and diarrhea for 3 days. Patient admitted for sepsis and right kidney mass Plan: Sepsis: -CT A/P: LLL consolidation -elevated lactate 4.8 -elevated porcal 184 -continue with vancomycin PO, meropenem, and doxycycline po -blood cx negative to date -f/u urine, sputum -HIV non reactive -ID following, Dr Stephens Right kidney mass: -etiology is more likely malignancy given constitutional symptoms of non- intentional weight loss, malaise, loss of appetite, and radiology findings -CT A/P: right kidney mass 12.5 cm with mets to liver and lung -s/p CT-guided biposy of right kidney. 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 clean, no pus/discharge -likely due to immoblization, recent hospitalization, deconditioning -reposition q2h -wound care Anemia of chronic disease: -H/H 7.3/22.7 on admission. Baseline 8.5 -s/p 1u pRBC transfusion -continue to monitor , transfuse prn PPX: DVT: SCD, heparin q8h GI:protonix Renal diet PT: recommended PRETTY. Med B terminated, neonatal social worker following on future placement Case reviewed and plan discussed with attending Dr Edie Moss, DO <Anat Irizarry - Last Filed: 08/12/18 11:56> Objective - Vital Signs/Intake and Output Vital Signs (last 24 hours): Temp Pulse Resp BP Pulse Ox 98.5 F 89 20 169/80 H 96 08/12/18 07:56 08/12/18 07:56 08/12/18 07:56 08/12/18 07:56 08/12/18 07:56 Intake and Output: 08/12/18 08/12/18 06:59 18:59 Intake Total 120 Balance 120 - Medications Medications: Current Medications Acetaminophen (Tylenol 325mg Tab) 650 mg PO Q6H PRN PRN Reason: Fever >100.4 F Albumin Human (Albumin Human 25% (25 Gm/100 Ml)) 25 gm IV TTS PRN PRN Reason: Other Albuterol/Ipratropium (Duoneb 3 Mg/0.5 Mg (3 Ml) Ud) 3 ml IH Q2H PRN PRN Reason: Shortness of Breath Aspirin (Aspirin Chewable) 81 mg PO DAILY [facility] Last Admin: 08/12/18 10:19 Dose: 81 mg Atorvastatin Calcium (Lipitor) 40 mg PO DIN [facility] Last Admin: 08/11/18 17:18 Dose: 40 mg Heparin Sodium (Porcine) (Heparin) 5,000 units SC Q8 [facility]; Protocol Last Admin: 08/12/18 06:05 Dose: Not Given Losartan Potassium (Cozaar) 25 mg PO QPM [facility] Last Admin: 08/11/18 17:18 Dose: 25 mg Metoprolol Tartrate (Lopressor) 25 mg PO BID [facility] Last Admin: 08/12/18 10:54 Dose: Not Given Ondansetron HCl (Zofran Inj) 4 mg IVP Q6H PRN PRN Reason: Nausea/Vomiting Tramadol HCl (Ultram) 50 mg PO TID PRN PRN Reason: Pain, severe (8-10) Last Admin: 08/12/18 07:02 Dose: 50 mg Vitamin B Complex/Vit C/Folic Acid (Nephro-Denice) 1 tab PO 0800 [facility] Last Admin: 08/12/18 10:18 Dose: 1 tab - Labs Labs: 08/11/18 06:30 08/11/18 07:00 PT 24.3 SECONDS (9.4-12.5) H 08/07/18 18:49 INR 2.19 08/07/18 18:49 APTT 30.1 Seconds (26.9-38.3) 08/07/18 18:49 Attending/Attestation - Attestation I have personally seen and examined this patient.: Yes I have fully participated in the care of the patient.: Yes I have reviewed all pertinent clinical information, including history, physical exam and plan: Yes Notes (Text): 08/12/18 11:52 Attending note; Patient seen and examined with resident. Sitting in the bed. Patient is extremely tired. Just got left upper extremity fistulogram done . Able to answer only few questions. cachectic. Abdominal distention present. Appears chronically ill. Patient is afebrile and nontoxic. Patient is a 53yo male with past medical history of HTN, HLD, ESRD on HD (T, T, Sa), R Renal mass who came in for weakness and diarrhea for 3 days. 1. Generalized weakness/diarrhea/Chronic illness/worsening of chronic medical conditions. Currently patient has no significant diarrhea. tolerating diet. 2. Right renal mass; as per family 2 renal biopsies showed necrotic tissue. Patient was also told that he has lesions in the lung and the liver at [facility] w here he was receiving treatment previously. Possible renal cell cancer with metastatic disease suspected. Oncology evaluation appreciated. CT abdomen and pelvis showed renal mass and multiple metastatic lesions in the liver and ascites. 3. Renal Mass; interventional radiology requested for biopsy. s/p renal biopsy. pending results. 4. End Stage renal disease on dialysis; continue dialysis schedule. Case discussed with retail selling specialist in detail. 5. Anemia ; multifactorial. 1 unit PRBC transfusion given. HB is 10.6. 6. Hypertension; continue metoprolol. 7. Severe leukocytosis; wbc is 57.3 blood culture negative so far. Mostly secondary to malignancy. ID evaluation appreciated. Started on meropenem and doxycycline. The chest showed left lower lobe consolidation. 8. Sacral decubitus; continue wound care 9. Cardiomyopathy /elevated troponin; cardiology evaluation appreciated. Echocardiogram showed ejection fraction of 36% and moderate left pleural effusion and moderate pulmonary hypertension. Cardiology evaluation appreciated. 10. left upper arm swelling; venous doppler is negative.s/p fistulogram. Poor prognosis discussed with patient's in detail. Palliative care evaluation appreciated. Prognosis is poor. Addendum; Preliminary biopsy results shows mostly necrotic tissue with small focus of cells highly suspicious for clear cell carcinoma. Case discussed with patient , patient's and patient's [id number] in detail by the bedside. Case discussed with oncologist in detail. Palliative care evaluation appreciated. Options of palliative care, comfort c are, hospice discussed. Patient is currently full code. Patient and family refused hospice care. Case discussed with neonatal social worker and binder caser in detail. Patient does not have Medicaid or Medicare part B transportation to dialysis. Pending subacute rehab placement. We will follow-up with binder caser and neonatal social worker on Tuesday.
[2018-08-11] MEDS ORDERED: Iodixanol 320 MG/ML 100 ML BOTTLE IV ONE (08:35)
[2018-08-11] MEDS: Vancomycin 25 MG/ML PO SCH (09:56)
[2018-08-11] MEDS: MEROPENEM 500 MG in NS 500 MG/50 ML BAG IVPB SCH (13:00)
--- NOTE | 2018-08-11 13:05 | VASCULAR ---
PROCEDURE: 1. Left upper extremity AV fistula angiogram. 2. Left innominate vein angioplasty and stent placement HISTORY: End-stage renal disease. Malfunctioning AV access severe left arm swelling. PHYSICIAN(S): Saurabh Murray MD. TECHNIQUE: The relative risks and indications of the procedure were explained to the patient and consent obtained. The patient was placed supine on the angiography table and the left arm prepped and draped in usual sterile fashion. Conscious sedation and monitoring provided throughout the procedure by a nurse. Under ultrasound guidance, the left brachial-cephalic fistula was punctured with a micropuncture set. A 5 Trinidadian sheath was placed. An overlapping left upper extremity AV fistula angiogram was obtained. There is compression of the left innominate vein by the ectatic and tortuous aortic arch. Numerous collaterals are seen. A 10 Trinidadian sheath was placed at the puncture site to allow stent placement. The stenosis was easily crossed with angled glidewire and 5 Trinidadian catheter. Exchange is made for a 0.035 support wire in the IVC. A 20 mm x 8 cm Wallstent was deployed in the left innominate vein. The stent was dilated with a 16 mm balloon. A good angiographic result was obtained. The sheath was removed hemostasis obtained with a purse string suture. The patient tolerated the procedure well. FINDINGS: The patient's left brachial-cephalic fistula is well developed. Numerous collaterals are seen in the upper arm and shoulder girdle. There is severe compression of the left innominate vein by the ectatic and tortuous aortic arch. The SVC is unremarkable. IMPRESSION: 1. Severe compression of the left innominate vein by the ectatic and tortuous aortic arch. 2. Successful angioplasty and stent placement in the left innominate vein.
--- NOTE | 2018-08-11 13:15 | CP.PCM.PCO ---
Physician Communication Note - Physician Communication Note Physician Communication Note: discuss plan with medical team and cm, will follow
--- NOTE | 2018-08-11 14:25 | CP.PCM.PN ---
<Greyson Monterroso - Last Filed: 08/11/18 16:18> Subjective - Date & Time of Evaluation Date of Evaluation: 08/11/18 Time of Evaluation: 10:00 - Subjective Subjective: Infectious disease progress note: Patient seen and examined at bedside. No acute events overnight. No fevers. s/p fistulogram today. No other complaints. 12 point ROS performed and negative unless stated above. Objective - Vital Signs/Intake and Output Vital Signs (last 24 hours): Temp Pulse Resp BP Pulse Ox 97.9 F 94 H 18 155/79 H 97 08/11/18 12:00 08/11/18 12:00 08/11/18 12:00 08/11/18 12:00 08/11/18 10:10 Intake and Output: 08/11/18 08/11/18 06:59 18:59 Intake Total 1800 50 Balance 1800 50 - Medications Medications: Current Medications Acetaminophen (Tylenol 325mg Tab) 650 mg PO Q6H PRN PRN Reason: Fever >100.4 F Albumin Human (Albumin Human 25% (25 Gm/100 Ml)) 25 gm IV TTS PRN PRN Reason: Other Albuterol/Ipratropium (Duoneb 3 Mg/0.5 Mg (3 Ml) Ud) 3 ml IH Q2H PRN PRN Reason: Shortness of Breath Aspirin (Aspirin Chewable) 81 mg PO DAILY [facility] Last Admin: 08/11/18 12:47 Dose: 81 mg Atorvastatin Calcium (Lipitor) 40 mg PO DIN [facility] Last Admin: 08/10/18 17:42 Dose: Not Given Doxycycline Hyclate (Doryx) 100 mg PO Q12 [facility]; Protocol Last Admin: 08/11/18 12:47 Dose: 100 mg Heparin Sodium (Porcine) (Heparin) 5,000 units SC Q8 [facility]; Protocol Last Admin: 08/11/18 13:06 Dose: Not Given Meropenem/Sodium Chloride (Merrem Iv 500 Mg/Ns 50 Ml) 500 mg in 50 mls @ 100 mls/hr IVPB Q24H [facility]; Protocol Last Admin: 08/11/18 13:00 Dose: 100 mls/hr Losartan Potassium (Cozaar) 25 mg PO QPM [facility] Metoprolol Tartrate (Lopressor) 25 mg PO BID [facility] Last Admin: 08/11/18 09:55 Dose: Not Given Ondansetron HCl (Zofran Inj) 4 mg IVP Q6H PRN PRN Reason: Nausea/Vomiting Tramadol HCl (Ultram) 50 mg PO TID PRN PRN Reason: Pain, severe (8-10) Vitamin B Complex/Vit C/Folic Acid (Nephro-Denice) 1 tab PO 0800 [facility] Last Admin: 08/11/18 12:46 Dose: 1 tab - Labs Labs: 08/11/18 06:30 08/11/18 07:00 PT 24.3 SECONDS (9.4-12.5) H 08/07/18 18:49 INR 2.19 08/07/18 18:49 APTT 30.1 Seconds (26.9-38.3) 08/07/18 18:49 - Constitutional Appears: No Acute Distress - Head Exam Head Exam: ATRAUMATIC, NORMOCEPHALIC - ENT Exam ENT Exam: Mucous Membranes Moist - Respiratory Exam Respiratory Exam: Clear to Ausculation Bilateral. absent: Wheezes - Cardiovascular Exam Cardiovascular Exam: REGULAR RHYTHM, +S1, +S2 - GI/Abdominal Exam GI & Abdominal Exam: Soft. absent: Tenderness - Extremities Exam Extremities Exam: Pedal Edema (2+). absent: Calf Tenderness Additional comments: LUE edema - Neurological Exam Neurological Exam: Alert, Awake - Skin Skin Exam: Dry, Warm Assessment and Plan - Assessment and Plan (Free Text) Assessment: Sepsis 2/2 HCAP Right renal mass with metastatic disease to the liver and lung s/p biopsy of renal mass Elevated troponin Anasarca ESRD on HD Anemia Hypertension LUE edema D/c vancomycin PO Cont meropenem, and doxycycline Day PO day 4 of 7 days F/u fistulogram report F/u pathology of renal biopsy F/u L upper ext US neg for DVT Follow-up septic work-up, blood, urine, sputum, MRSA screen Follow-up with cardiology, hematology, and palliative care consultations Continue to monitor for any changes Case and plan to be reviewed and discussed with Dr. Stephens <Stu Stephens - Last Filed: 08/11/18 18:07> Objective - Vital Signs/Intake and Output Vital Signs (last 24 hours): Temp Pulse Resp BP Pulse Ox 98.2 F 86 20 165/79 H 97 08/11/18 17:16 08/11/18 17:16 08/11/18 17:16 08/11/18 17:16 08/11/18 10:10 Intake and Output: 08/11/18 08/11/18 06:59 18:59 Intake Total 1800 50 Balance 1800 50 - Medications Medications: Current Medications Acetaminophen (Tylenol 325mg Tab) 650 mg PO Q6H PRN PRN Reason: Fever >100.4 F Albumin Human (Albumin Human 25% (25 Gm/100 Ml)) 25 gm IV TTS PRN PRN Reason: Other Albuterol/Ipratropium (Duoneb 3 Mg/0.5 Mg (3 Ml) Ud) 3 ml IH Q2H PRN PRN Reason: Shortness of Breath Aspirin (Aspirin Chewable) 81 mg PO DAILY [facility] Last Admin: 08/11/18 12:47 Dose: 81 mg Atorvastatin Calcium (Lipitor) 40 mg PO DIN [facility] Last Admin: 08/11/18 17:18 Dose: 40 mg Doxycycline Hyclate (Doryx) 100 mg PO Q12 [facility]; Protocol Last Admin: 08/11/18 12:47 Dose: 100 mg Heparin Sodium (Porcine) (Heparin) 5,000 units SC Q8 [facility]; Protocol Last Admin: 08/11/18 13:06 Dose: Not Given Meropenem/Sodium Chloride (Merrem Iv 500 Mg/Ns 50 Ml) 500 mg in 50 mls @ 100 mls/hr IVPB Q24H [facility]; Protocol Last Admin: 08/11/18 13:00 Dose: 100 mls/hr Losartan Potassium (Cozaar) 25 mg PO QPM [facility] Last Admin: 08/11/18 17:18 Dose: 25 mg Metoprolol Tartrate (Lopressor) 25 mg PO BID [facility] Last Admin: 08/11/18 17:19 Dose: 25 mg Ondansetron HCl (Zofran Inj) 4 mg IVP Q6H PRN PRN Reason: Nausea/Vomiting Tramadol HCl (Ultram) 50 mg PO TID PRN PRN Reason: Pain, severe (8-10) Vitamin B Complex/Vit C/Folic Acid (Nephro-Denice) 1 tab PO 0800 [facility] Last Admin: 08/11/18 12:46 Dose: 1 tab - Labs Labs: 08/11/18 06:30 08/11/18 07:00 PT 24.3 SECONDS (9.4-12.5) H 08/07/18 18:49 INR 2.19 08/07/18 18:49 APTT 30.1 Seconds (26.9-38.3) 08/07/18 18:49 Attending/Attestation - Attestation I have personally seen and examined this patient.: Yes I have fully participated in the care of the patient.: Yes I have reviewed all pertinent clinical information, including history, physical exam and plan: Yes
--- NOTE | 2018-08-11 15:19 | CP.PCM.PN ---
Subjective - Date & Time of Evaluation Date of Evaluation: 08/11/18 Time of Evaluation: 15:18 - Subjective Subjective: Nephrology Consultation Note: Assessment: stable fluid overload with anasarca and likely underlying metastatic malignancy Hypertensive Chronic Kidney Disease (I12.0) End stage renal disease (N18.6) dependence on hemodialysis (Z99.2) (TTS) via AV access Anemia (D64.9), Hyperphosphatemia (E83.39), Secondary Hyperparathyroidism (E21.1), HTN (I12.0) thrombocytopenia, lactic acidosis, leukocytosis sys CHF LVEF 35% LUE edema due to innominate vein compression s/p stent 08/11/18 Plan: Will plan for HD as TTS schedule Continue with Nephrovite 1 tab/day. advised to complete dialysis treatment tomorrow defer MAVIS use to heme/once in view of likely active malignancy. PRBC as needed. BP control with meds as ordered. Patient not on RAAS janine hence added losartan 25 mg/d Glycemic control Dialysis consistent diet Further work up/management as per primary team Dose meds/antibiotics (if needed) for ESRD status. Avoid fleets enema/magnesium based laxatives. overall prognosis poor. heme/onc following. seen by palliative care. IR consult appreciated for fistulogram. pt s/p CT guided biopsy of renal mass. f/up pathology report. Thanks for allowing me to participate in care of your patient. Will follow patient with you. Please call if any Qs. had d/w team and family Dr Barry Hall Office: [phone] Chief Complaint; diarrhoea, left arm swelling, confusion reason for consult: ESRD HPI: Pt is a 53 y/o with hx of ESRD on hemodialysis (TTS) x 6 months via Lt AVF, last dialysis Sat @ [facility] with Dr Reddy, chronic anemia, hyperphosphatemia, secondary hyperparathyroidism, hypertension and Rt renal mass likely with metastasis presented with complaints of confusion, diarrhoea, SOB fo r last few days and left arm swelling x 2 weeks pt denies any complaints in particular at this time but doesn't feel well. c/o leg swelling and abdomen distension ROS: noted overnight events Denies chest pain, palpitation, denies shortness of breath, has LUE swelling. appetite decreased. rest all other neg except as mentioned in HPI Physical Examination: General Appearance: Comfortable, in no acute respiratory distress, co-operative . ill appearing Vitals reviewed and noted as below Head; Atraumatic, normocephalic ENT: no ulcers no thrush. Tongue is midline. Oropharynx: no rash EYES: Pupils are equal, round and reactive to light accommodation. Eye muscles and extraocular movement intact. Sclera is icteric. Neck; supple no lymphadenopathy, no thyromegaly or bruit. Rt infraclavicular h ollowing and Rt sternal head prominence noted. also has lump over mid sternal area Lungs: Improved respiratory rate/effort. Breath sounds bilateral reduced at bases. Heart: Normal rate. s1s2 normal. No rub or gallop. Extremities: trace edema. No varicose veins. Neurological: Patient is alert, awake and oriented but confused. No focal deficit. Strength bilateral appropriate and equal. Skin: Warm and dry. Normal turgor. No rash. Palpitation: Normal elasticity for age Abdomen: Abdomen is distended with abdominal wall edema. Bowel sounds +. There is no abdominal tenderness, no guarding/rigidity. has hepatomegaly Psych: limited insight and normal affect/mood MSK: no joint tenderness or swelling. Digits and nails normal, no deformity : kidney or bladder not palpable Access: Lt AV access with thrill and bruit. left forearm grossly swollen Labs/imaging reviewed. Past medical history, past surgical history, family history, social history, allergy reviewed and noted as below Family Hx: no hx of CKD. Non contributory Objective - Vital Signs/Intake and Output Vital Signs (last 24 hours): Temp Pulse Resp BP Pulse Ox 97.9 F 94 H 18 155/79 H 97 08/11/18 12:00 08/11/18 12:00 08/11/18 12:00 08/11/18 12:00 08/11/18 10:10 Intake and Output: 08/11/18 08/11/18 06:59 18:59 Intake Total 1800 50 Balance 1800 50 - Medications Medications: Current Medications Acetaminophen (Tylenol 325mg Tab) 650 mg PO Q6H PRN PRN Reason: Fever >100.4 F Albumin Human (Albumin Human 25% (25 Gm/100 Ml)) 25 gm IV TTS PRN PRN Reason: Other Albuterol/Ipratropium (Duoneb 3 Mg/0.5 Mg (3 Ml) Ud) 3 ml IH Q2H PRN PRN Reason: Shortness of Breath Aspirin (Aspirin Chewable) 81 mg PO DAILY [facility] Last Admin: 08/11/18 12:47 Dose: 81 mg Atorvastatin Calcium (Lipitor) 40 mg PO DIN [facility] Last Admin: 08/10/18 17:42 Dose: Not Given Doxycycline Hyclate (Doryx) 100 mg PO Q12 [facility]; Protocol Last Admin: 08/11/18 12:47 Dose: 100 mg Heparin Sodium (Porcine) (Heparin) 5,000 units SC Q8 [facility]; Protocol Last Admin: 08/11/18 13:06 Dose: Not Given Meropenem/Sodium Chloride (Merrem Iv 500 Mg/Ns 50 Ml) 500 mg in 50 mls @ 100 mls/hr IVPB Q24H [facility]; Protocol Last Admin: 08/11/18 13:00 Dose: 100 mls/hr Losartan Potassium (Cozaar) 25 mg PO QPM [facility] Metoprolol Tartrate (Lopressor) 25 mg PO BID [facility] Last Admin: 08/11/18 09:55 Dose: Not Given Ondansetron HCl (Zofran Inj) 4 mg IVP Q6H PRN PRN Reason: Nausea/Vomiting Tramadol HCl (Ultram) 50 mg PO TID PRN PRN Reason: Pain, severe (8-10) Vitamin B Complex/Vit C/Folic Acid (Nephro-Denice) 1 tab PO 0800 [facility] Last Admin: 08/11/18 12:46 Dose: 1 tab - Labs Labs: 08/11/18 06:30 08/11/18 07:00 PT 24.3 SECONDS (9.4-12.5) H 08/07/18 18:49 INR 2.19 08/07/18 18:49 APTT 30.1 Seconds (26.9-38.3) 08/07/18 18:49
--- NOTE | 2018-08-11 20:35 | CP.PCM.PN ---
Subjective - Date & Time of Evaluation Date of Evaluation: 08/11/18 Time of Evaluation: 09:05 - Subjective Subjective: Patient seen in PACU earlier today. He has no complaints, slightly drowsy. S/p fistulagram Objective - Vital Signs/Intake and Output Vital Signs (last 24 hours): Temp Pulse Resp BP Pulse Ox 98.2 F 86 20 165/79 H 97 08/11/18 17:16 08/11/18 17:16 08/11/18 17:16 08/11/18 17:16 08/11/18 10:10 Intake and Output: 08/11/18 08/12/18 18:59 06:59 Intake Total 100 Balance 100 - Medications Medications: Current Medications Acetaminophen (Tylenol 325mg Tab) 650 mg PO Q6H PRN PRN Reason: Fever >100.4 F Albumin Human (Albumin Human 25% (25 Gm/100 Ml)) 25 gm IV TTS PRN PRN Reason: Other Albuterol/Ipratropium (Duoneb 3 Mg/0.5 Mg (3 Ml) Ud) 3 ml IH Q2H PRN PRN Reason: Shortness of Breath Aspirin (Aspirin Chewable) 81 mg PO DAILY [facility] Last Admin: 08/11/18 12:47 Dose: 81 mg Atorvastatin Calcium (Lipitor) 40 mg PO DIN [facility] Last Admin: 08/11/18 17:18 Dose: 40 mg Doxycycline Hyclate (Doryx) 100 mg PO Q12 [facility]; Protocol Last Admin: 08/11/18 12:47 Dose: 100 mg Heparin Sodium (Porcine) (Heparin) 5,000 units SC Q8 [facility]; Protocol Last Admin: 08/11/18 13:06 Dose: Not Given Meropenem/Sodium Chloride (Merrem Iv 500 Mg/Ns 50 Ml) 500 mg in 50 mls @ 100 mls/hr IVPB Q24H [facility]; Protocol Last Admin: 08/11/18 13:00 Dose: 100 mls/hr Losartan Potassium (Cozaar) 25 mg PO QPM [facility] Last Admin: 08/11/18 17:18 Dose: 25 mg Metoprolol Tartrate (Lopressor) 25 mg PO BID [facility] Last Admin: 08/11/18 17:19 Dose: 25 mg Ondansetron HCl (Zofran Inj) 4 mg IVP Q6H PRN PRN Reason: Nausea/Vomiting Tramadol HCl (Ultram) 50 mg PO TID PRN PRN Reason: Pain, severe (8-10) Vitamin B Complex/Vit C/Folic Acid (Nephro-Denice) 1 tab PO 0800 [facility] Last Admin: 08/11/18 12:46 Dose: 1 tab - Labs Labs: 08/11/18 06:30 08/11/18 07:00 PT 24.3 SECONDS (9.4-12.5) H 08/07/18 18:49 INR 2.19 08/07/18 18:49 APTT 30.1 Seconds (26.9-38.3) 08/07/18 18:49 - Constitutional Appears: No Acute Distress, Confused, Chronically Ill - Head Exam Head Exam: ATRAUMATIC, NORMAL INSPECTION, NORMOCEPHALIC - Eye Exam Eye Exam: EOMI, Normal appearance, PERRL - ENT Exam ENT Exam: Mucous Membranes Moist - Neck Exam Neck Exam: Full ROM - Respiratory Exam Respiratory Exam: Decreased Breath Sounds. absent: Clear to Ausculation Bilateral - Cardiovascular Exam Cardiovascular Exam: REGULAR RHYTHM, +S1, +S2 - GI/Abdominal Exam GI & Abdominal Exam: Soft, Normal Bowel Sounds - Rectal Exam Rectal Exam: Deferred - Extremities Exam Additional comments: left upper extremely lymphedema - Neurological Exam Neurological Exam: Alert, Awake, CN II-XII Intact, Reflexes Normal - Psychiatric Exam Psychiatric exam: Depressed Assessment and Plan (1) Renal mass, right Status: Acute (2) Renal mass, right Status: Acute (3) Renal cell carcinoma Status: Acute - Assessment and Plan (Free Text) Assessment: 53 year old male patient with extensive medical history of HTN, HLD, ESRD on HD (T, T, Sa), R Renal mass admitted for progressive weakness. 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 Leukocytosis is likely reactive to his underlying malignancy. Anemia multifactorial due to chronic renal disease and cannot rule out chronic blood loss. Plan Palliative care follow up Due to patient rapid decline in functional status he may not be a good candidate for therapy Will evaluate if condition improves Awaiting possible transfer to rehab Continue HD as per nephrology Transfuse as clinically indicated Will continue to follow Thank you for allowing me to partake in your patients care. Sincerely, Odilon Childs
[2018-08-12] MEDS ORDERED: DiphenhydrAMINE 50 mg/ml Inj IVP STA (01:38)
--- NOTE | 2018-08-12 07:24 | PCM.PPROG ---
History of Present Illness - History of Present Illness History of Present Illness: Confused at times, denies pain Physical Exam - Constitutional Appears: Cachectic, Chronically Ill - Eye Exam Eye Exam: PERRL, Scleral icterus - ENT Exam ENT Exam: Mucous Membranes Moist - Respiratory Exam Respiratory Exam: Decreased Breath Sounds, NORMAL BREATHING PATTERN - Cardiovascular Exam Cardiovascular Exam: REGULAR RHYTHM, +S1, +S2 - GI/Abdominal Exam GI & Abdominal Exam: Diminished Bowel Sounds, Normal Bowel Sounds, Soft - Extremities Exam Extremities exam: Positive for: pedal edema, pedal pulses present - Neurological Exam Neurological exam: Altered - Skin Skin Exam: Dry, Pallor, Warm Palliative Care Assessment - Modified MRC Dyspnea Scale Modified MRC Dyspnea Scale: Has to stop for breath when walking at own pace Grade: 3 - Pain Scale Pain Score: 0 - Pain Description Intensity of pain at present: 0 - Camilo Scale Sensory Perception: Slightly Limited Moisture: Occasionally Moist Activity: Walks Occasionally Mobility: Very Limited Nutrition: Probably Inadequate Friction & Shear: Potential Problem Total Score - Skin Risk Assessment: 15 - Psychosocial Distress Patient screened for psychosocial distress: Yes Outcome: Referred to high school social studies tutor - Goals Treatment Goal(s): Alleviate symptoms, Improve ADLs, Improve quality of life End of life care discussed: Yes - Plan Interdisciplinary involved: cut off worker, Physician Discharge planning: Home Assessment & Plan - Assessment and Plan (Free Text) Assessment: 53 year old male patient with extensive medical history of HTN, HLD, ESRD on HD, R Renal mass admitted for progressive weakness,anasarca, diarrhea, leukocytosis,anemia,sepsis. Patient likely has metastatic renal cell carcinoma. Patients , Aimee and sister in law Garcia at bedside. did not bring copy of patients advanced directive. Resuscitation status discussed and does not want to make patient at DNR./DNI at this time. Goals of care conversation also ensued. Family wants to continue with dialysis. They are also likely to purse treatment of renal cell carcinoma. They do not want hospice care at this time. Yarely CARBALLO discussed options for PRETTY with family Time spent with family in goals of care and advance care planning, 30 minutes Plan: Goals of care and advance are planning Nephro following, Continue HD as regular scheduled( T-T-S), Nephrovite. Dose meds/antibiotics forr ESRD status. Oncology following, path results pending ID recs; Continue Merrem, Doxycycline DVT prophylaxis
--- NOTE | 2018-08-12 09:55 | PN ---
DATE: 08/12/2018 SUBJECTIVE: The patient seen earlier, he appears chronically ill, debilitated, end-stage, cachectic. PHYSICAL EXAMINATION: VITAL SIGNS: Temperature of 98, blood pressure is 160/80, respiratory rate of 20. HEENT: Unremarkable. NECK: Supple. LUNGS: Have decreased breath sounds. HEART: Normal S1, S2. ABDOMEN: Soft. No rebound or guarding. LABORATORY EXAMINATION: Reveals a white count of 57,000, hemoglobin of 9, platelets of 80. Chemistries reveals a BUN of 62, creatinine of 4.6. Alk phos is 535. LFTs are elevated. Troponin is elevated and procalcitonin is 184. Serology is noted. Microbiology reveals the blood cultures are negative. Nares cultures are negative. Review of orders reveals the patient to be a on meropenem. ASSESSMENT AND PLAN: This is a 53-year-old male with past medical history of hypertension, hyperlipidemia, end-stage renal disease on dialysis with now admitted with a right renal mass status post biopsy which shows a renal cell clear cell carcinoma. All cultures are negative. We will discontinue the antibiotics. Today is day #5. The patient who has end-stage malignancy with metastatic disease to the liver which may cause leukemoid reaction explaining the leukocytosis. Stu Stephens MD
[2018-08-12] MEDS: Multivitamin Vitamin B Complex (Nephro-Vite) Tab PO SCH (10:18)
--- NOTE | 2018-08-12 12:36 | CP.PCM.PN ---
Subjective - Date & Time of Evaluation Date of Evaluation: 08/12/18 Time of Evaluation: 12:35 - Subjective Subjective: Nephrology Consultation Note: Assessment: stable fluid overload with anasarca and likely underlying metastatic malignancy (renal cell carcinoma) Hypertensive Chronic Kidney Disease (I12.0) End stage renal disease (N18.6) dependence on hemodialysis (Z99.2) (TTS) via AV access Anemia (D64.9), Hyperphosphatemia (E83.39), Secondary Hyperparathyroidism (E21.1), HTN (I12.0) thrombocytopenia, lactic acidosis, leukocytosis sys CHF LVEF 35% LUE edema due to innominate vein compression s/p stent 08/11/18 Plan: Will plan for HD as TTS schedule Continue with Nephrovite 1 tab/day. advised to complete dialysis treatment today defer MAVIS use to heme/once in view of likely active malignancy. PRBC as needed. BP control with meds as ordered. Patient not on RAAS janine hence added losartan 25 mg/d Glycemic control Dialysis consistent diet Further work up/management as per primary team Dose meds/antibiotics (if needed) for ESRD status. Avoid fleets enema/magnesium based laxatives. overall prognosis poor. heme/onc following. seen by palliative care. IR consult appreciated for fistulogram. pt s/p CT guided biopsy of renal mass. oncology following Thanks for allowing me to participate in care of your patient. Will follow patient with you. Please call if any Qs. had d/w team and family Dr Barry Hall Office: [phone] Chief Complaint; diarrhoea, left arm swelling, confusion reason for consult: ESRD HPI: Pt is a 53 y/o with hx of ESRD on hemodialysis (TTS) x 6 months via Lt AVF, last dialysis Sat @ [facility] with Dr Reddy, chronic anemia, hyperphosphatemia, secondary hyperparathyroidism, hypertension and Rt renal mass likely with metastasis presented with complaints of confusion, diarrhoea, SOB for last few days and left arm swelling x 2 weeks pt denies any complaints in particular at this time but doesn't feel well. c/o leg swelling and abdomen distension ROS: noted overnight events Denies chest pain, palpitation, denies shortness of breath, has LUE swelling but better. appetite decreased. rest all other neg except as mentioned in HPI Physical Examination: General Appearance: Comfortable, in no acute respiratory distress, co-operative . ill appearing Vitals reviewed and noted as below Head; Atraumatic, normocephalic ENT: no ulcers no thrush. Tongue is midline. Oropharynx: no rash EYES: Pupils are equal, round and reactive to light accommodation. Eye muscles and extraocular movement intact. Sclera is icteric. Neck; supple no lymphadenopathy, no thyromegaly or bruit. Rt infraclavicular hollowing and Rt sternal head prominence noted. also has lump over mid sternal area Lungs: Improved respiratory rate/effort. Breath sounds bilateral reduced at bases. Heart: Normal rate. s1s2 normal. No rub or gallop. Extremities: trace edema. No varicose veins. Neurological: Patient is alert, awake and oriented but confused. No focal deficit. Strength bilateral appropriate and equal. Skin: Warm and dry. Normal turgor. No rash. Palpitation: Normal elasticity for age Abdomen: Abdomen is distended with abdominal wall edema. Bowel sounds +. There is no abdominal tenderness, no guarding/rigidity. has hepatomegaly Psych: limited insight and normal affect/mood MSK: no joint tenderness or swelling. Digits and nails normal, no deformity : kidney or bladder not palpable Access: Lt AV access with thrill and bruit. left forearm swelling better Labs/imaging reviewed. Past medical history, past surgical history, family history, social history, allergy reviewed and noted as below Family Hx: no hx of CKD. Non contributory Objective - Vital Signs/Intake and Output Vital Signs (last 24 hours): Temp Pulse Resp BP Pulse Ox 98.5 F 89 20 169/80 H 96 08/12/18 07:56 08/12/18 07:56 08/12/18 07:56 08/12/18 07:56 08/12/18 07:56 Intake and Output: 08/12/18 08/12/18 06:59 18:59 Intake Total 120 Balance 120 - Medications Medications: Current Medications Acetaminophen (Tylenol 325mg Tab) 650 mg PO Q6H PRN PRN Reason: Fever >100.4 F Albumin Human (Albumin Human 25% (25 Gm/100 Ml)) 25 gm IV TTS PRN PRN Reason: Other Albuterol/Ipratropium (Duoneb 3 Mg/0.5 Mg (3 Ml) Ud) 3 ml IH Q2H PRN PRN Reason: Shortness of Breath Aspirin (Aspirin Chewable) 81 mg PO DAILY [facility] Last Admin: 08/12/18 10:19 Dose: 81 mg Atorvastatin Calcium (Lipitor) 40 mg PO DIN [facility] Last Admin: 08/11/18 17:18 Dose: 40 mg Heparin Sodium (Porcine) (Heparin) 5,000 units SC Q8 [facility]; Protocol Last Admin: 08/12/18 06:05 Dose: Not Given Losartan Potassium (Cozaar) 25 mg PO QPM [facility] Last Admin: 08/11/18 17:18 Dose: 25 mg Metoprolol Tartrate (Lopressor) 25 mg PO BID [facility] Last Admin: 08/12/18 10:54 Dose: Not Given Ondansetron HCl (Zofran Inj) 4 mg IVP Q6H PRN PRN Reason: Nausea/Vomiting Tramadol HCl (Ultram) 50 mg PO TID PRN PRN Reason: Pain, severe (8-10) Last Admin: 08/12/18 07:02 Dose: 50 mg Vitamin B Complex/Vit C/Folic Acid (Nephro-Denice) 1 tab PO 0800 [facility] Last Admin: 08/12/18 10:18 Dose: 1 tab - Labs Labs: 08/11/18 06:30 08/11/18 07:00 PT 24.3 SECONDS (9.4-12.5) H 08/07/18 18:49 INR 2.19 08/07/18 18:49 APTT 30.1 Seconds (26.9-38.3) 08/07/18 18:49
[2018-08-12] MEDS ORDERED: Morphine 2 mg/ml ISec IVP PRN (13:17)
--- NOTE | 2018-08-12 17:23 | CP.PCM.PN ---
<Reji Moss - Last Filed: 08/12/18 19:57> Subjective - Date & Time of Evaluation Date of Evaluation: 08/12/18 Time of Evaluation: 09:30 - Subjective Subjective: Reji Moss DO PGY1 Hospitalist Progress Note for Dr Irizarry Patient seen and examined at bedside. c/o lower back pain that he could not sleep last night. Denies CP, JOHNSON. No acute event overnight. Objective - Vital Signs/Intake and Output Vital Signs (last 24 hours): Temp Pulse Resp BP Pulse Ox 98.5 F 89 20 169/80 H 96 08/12/18 07:56 08/12/18 07:56 08/12/18 07:56 08/12/18 07:56 08/12/18 07:56 Intake and Output: 08/12/18 08/12/18 06:59 18:59 Intake Total 120 Balance 120 - Medications Medications: Current Medications Acetaminophen (Tylenol 325mg Tab) 650 mg PO Q6H PRN PRN Reason: Fever >100.4 F Albumin Human (Albumin Human 25% (25 Gm/100 Ml)) 25 gm IV TTS PRN PRN Reason: Other Albuterol/Ipratropium (Duoneb 3 Mg/0.5 Mg (3 Ml) Ud) 3 ml IH Q2H PRN PRN Reason: Shortness of Breath Aspirin (Aspirin Chewable) 81 mg PO DAILY [facility] Last Admin: 08/12/18 10:19 Dose: 81 mg Atorvastatin Calcium (Lipitor) 40 mg PO DIN [facility] Last Admin: 08/11/18 17:18 Dose: 40 mg Heparin Sodium (Porcine) (Heparin) 5,000 units SC Q8 [facility]; Protocol Last Admin: 08/12/18 14:47 Dose: Not Given Losartan Potassium (Cozaar) 25 mg PO QPM [facility] Last Admin: 08/11/18 17:18 Dose: 25 mg Metoprolol Tartrate (Lopressor) 25 mg PO BID [facility] Last Admin: 08/12/18 10:54 Dose: Not Given Morphine Sulfate (Morphine) 1 mg IVP Q6 PRN PRN Reason: Pain, severe (8-10) Ondansetron HCl (Zofran Inj) 4 mg IVP Q6H PRN PRN Reason: Nausea/Vomiting Tramadol HCl (Ultram) 50 mg PO TID PRN PRN Reason: Pain, severe (8-10) Last Admin: 08/12/18 07:02 Dose: 50 mg Vitamin B Complex/Vit C/Folic Acid (Nephro-Denice) 1 tab PO 0800 [facility] Last Admin: 08/12/18 10:18 Dose: 1 tab - Labs Labs: 08/11/18 06:30 08/11/18 07:00 PT 24.3 SECONDS (9.4-12.5) H 08/07/18 18:49 INR 2.19 08/07/18 18:49 APTT 30.1 Seconds (26.9-38.3) 08/07/18 18:49 - Additional Findings Additional findings: - Constitutional Appears: No Acute Distress, Cachectic, Chronically Ill - Head Exam Head Exam: ATRAUMATIC, NORMAL INSPECTION, NORMOCEPHALIC - Eye Exam Eye Exam: EOMI - ENT Exam ENT Exam: Mucous Membranes Moist - Neck Exam Neck Exam: Full ROM - Respiratory Exam Respiratory Exam: Clear to Ausculation Bilateral. absent: Rhonchi, Wheezes Additional comments: soft tissue swelling at xiphoid process, no discharge, no erythema, no open wound, non tender to touch, no change in temp - Cardiovascular Exam Cardiovascular Exam: +S1, +S2. absent: Gallop, JVD, RRR - GI/Abdominal Exam GI & Abdominal Exam: Soft, Normal Bowel Sounds. absent: Tenderness - Extremities Exam Extremities Exam: Full ROM, Normal Capillary Refill, Normal Inspection, Pedal Edema. absent: Joint Swelling - Back Exam Additional comments: decubitus ulcers, stage 2, lower sacrum, 2 cm in diameter, no discharge, dressing applied - Neurological Exam Neurological Exam: Alert, Awake - Psychiatric Exam Psychiatric exam: Depressed, Flat Affect - Skin Skin Exam: Dry, Intact, Normal Color, Warm Assessment and Plan - Assessment and Plan (Free Text) Assessment: 53 y/o male with PMH of HTN, HLD, ESRD on HD TTS, R Renal mass presented for weakness and diarrhea for 3 days. Patient admitted for sepsis and right kidney mass Plan: Sepsis: -CT A/P: LLL consolidation -elevated lactate 4.8 -elevated porcal 184 -continue with vancomycin PO, meropenem, and doxycycline po -blood cx negative to date -f/u urine, sputum -HIV non reactive -ID following, Dr Stephens Right kidney mass: -etiology is more likely malignancy given constitutional symptoms of non- intentional weight loss, malaise, loss of appetite, and radiology findings -CT A/P: right kidney mass 12.5 cm with mets to liver and lung -s/p CT-guided biposy of right kidney. f/u pathology results -palliative care on board -PT eval/treat ESRD on HD: -likely due to hypertensive kidney disease -continue HD on TTS -hyperphosphatemia, hyperparathyroidism -continue nephrovite -elevated trop likely due to kidney disease -nephrology following Dr Jhaveri Diarrhea: -f/u stool cx, c diff ag/toxin -fecal leukocytosis Leukocytosis: -53.9 on admission -baseline is 30 as per patient's residential support specialist -peripheral smear ordered Transaminitis: -LFT trending down -hepatitis panel: Hep Bs Ab positive -PT/INR 24.3/2.19 Left arm swelling: -DVT negative for DVT -S/P fistulogram, severe compression found, s/p angioplasty and stent placement DM2: -accucheck -ISS-low -HgA1c HTN: -patient hypotensive, hold anti HTN meds -echo 08/10: EF 36.7% moderate LVH, mild to moderate pHTN Chronic decubitus ulcers: -stage 2. clean, no pus/discharge -likely due to immoblization, recent hospitalization, deconditioning -reposition q2h -wound care Anemia of chronic disease: -H/H 7.3/22.7 on admission. Baseline 8.5 -s/p 1u pRBC transfusion -continue to monitor , transfuse prn PPX: DVT: SCD, heparin q8h GI:protonix Renal diet PT: recommended PRETTY. Med B terminated, social science instructor following on future placement Case reviewed and plan discussed with attending Dr Edie Moss, DO <Anat Irizarry - Last Filed: 08/16/18 13:42> Objective - Vital Signs/Intake and Output Vital Signs (last 24 hours): Temp Pulse Resp BP Pulse Ox 98 F 75 20 130/72 94 L 08/15/18 16:20 08/15/18 18:01 08/15/18 16:20 08/15/18 18:01 08/15/18 16:20 - Labs Labs: 08/15/18 07:00 08/15/18 07:00 PT 24.3 SECONDS (9.4-12.5) H 08/07/18 18:49 INR 2.19 08/07/18 18:49 APTT 30.1 Seconds (26.9-38.3) 08/07/18 18:49 Attending/Attestation - Attestation I have personally seen and examined this patient.: Yes I have fully participated in the care of the patient.: Yes I have reviewed all pertinent clinical information, including history, physical exam and plan: Yes Notes (Text): 08/16/18 13:34 Attending note; Patient seen and examined with resident. Sitting in the bed. Able to answer only few questions. cachectic. Abdominal distention present. Appears chronically ill. Patient is afebrile and nontoxic. tolerating diet. Patient is a 53yo male with past medical history of HTN, HLD, ESRD on HD, R Renal mass who came in for weakness and diarrhea for 3 days. 1. Generalized weakness/diarrhea/Chronic illness/worsening of chronic medical conditions. slowly im[roving but still with significant gait instability. tolerating diet. 2. Right renal mass; s/p renal biopsy. case discussed with pathologist in detail. Preliminary biopsy results shows mostly necrotic tissue with small focus of cells highly suspicious for clear cell carcinoma. Case discussed with patient , patient's and patient's [id number] in detail by the bedside. Case discussed with oncologist in detail. pending official results. CT abdomen and pelvis showed renal mass and multiple metastatic lesions in the liver and ascites. 3 . End Stage renal disease on dialysis; continue dialysis schedule. Case discussed with landscape architecture professor in detail. 4. Anemia ; multifactorial. 1 unit PRBC transfusion given. Hb is stable. 5. Hypertension; continue metoprolol. 6. Severe leukocytosis; wbc is 57.3 blood culture negative so far. Mostly secondary to malignancy. ID evaluation appreciated. antibiotics stopped. 7. Sacral decubitus; continue wound care 8. Cardiomyopathy /elevated troponin; cardiology evaluation appreciated. Echocardiogram showed ejection fraction of 36% and moderate left pleural effusion and moderate pulmonary hypertension. Cardiology evaluation appreciated. 9. left upper arm swelling; Improving slowly after fistulogram. venous doppler is negative. Poor prognosis discussed with patient's in detail. Palliative care evaluation appreciated. Prognosis is poor. Pending rehab placement.
[2018-08-13] MEDS: Multivitamin Vitamin B Complex (Nephro-Vite) Tab PO SCH (09:19)
--- NOTE | 2018-08-13 10:31 | PN ---
DATE: 08/13/2018 SUBJECTIVE: The patient is in bed in no acute distress. PHYSICAL EXAMINATION VITAL SIGNS: Temperature is 98, blood pressure is 136/70, respiratory rate of 20. HEENT: Unremarkable. NECK: Supple. LUNGS: Have decreased breath sounds. HEART: Normal S1, S2. ABDOMEN: Soft. LABORATORY EXAMINATION: Reveals a white count of 57,000, BUN of 62, creatinine of 4.6 and serology is negative. Microbiology reveals the blood cultures are negative. Nares cultures are not detected. ASSESSMENT AND PLAN: This is a 53-year-old male who has hypertension, hyperlipidemia, end-stage renal disease on hemodialysis admitted with a renal mass, status post biopsy which shows renal cell clear cell carcinoma. All cultures negative. The patient has end-stage metastatic malignancy with leukemoid reaction and systemic inflammatory response syndrome, all cultures negative. Currently off of antibiotics. However, is at risk for developing nosocomial infections. Stu Stephens MD
[2018-08-13 10:34] LABS: BASO # 0.09 K/mm3 (0.0-2.0); BASO % 0.2 % (0.0-3.0); EOS # 0.1 (0.0-0.7); EOS % 0.2 % (1.5-5.0); HEMOGLOBIN 8.5 g/dL (14.0-18.0); LYMPH # 2.1 (1.2-3.4); LYMPH % 4.2 % (22.0-35.0); MEAN CELL VOLUME 89.5 fl (80.0-105.0); MEAN CORPUSCULAR HEMOGLOBIN 27.9 pg (25.0-35.0); MEAN CORPUSCULAR HGB CONC 31.1 g/dl (31.0-37.0); MEAN PLATELET VOLUME 10.2 fl (7.0-11.0); MONO # 1.8 (0.1-0.6); MONO % 3.5 % (1.0-6.0); PLATELET COUNT 102 10^3/uL (120.0-450.0); RBC 3.05 10^6/uL (3.5-6.1); RED CELL DISTRIBUTION WIDTH 19.5 % (11.5-14.5)
[2018-08-13 10:50] LABS: ALB/GLOB RATIO 0.8 (1.1-1.8); ALBUMIN 2.6 g/dL (3.0-4.8); CALCIUM 9.1 mg/dL (8.4-10.5)
[2018-08-13 10:52] LABS: WHITE BLOOD COUNT 50.2 10^3/uL (4.5-11.0)
--- NOTE | 2018-08-13 11:39 | CP.PCM.PN ---
Subjective - Date & Time of Evaluation Date of Evaluation: 08/13/18 Time of Evaluation: 11:38 - Subjective Subjective: Nephrology Consultation Note: Assessment: stable fluid overload with anasarca and likely underlying metastatic malignancy (renal cell carcinoma) Hypertensive Chronic Kidney Disease (I12.0) End stage renal disease (N18.6) dependence on hemodialysis (Z99.2) (TTS) via AV access Anemia (D64.9), Hyperphosphatemia (E83.39), Secondary Hyperparathyroidism (E21.1), HTN (I12.0) thrombocytopenia, lactic acidosis, leukocytosis sys CHF LVEF 35% LUE edema due to innominate vein compression s/p stent 08/11/18 Plan: Will plan for HD as TTS schedule Continue with Nephrovite 1 tab/day. defer MAVIS use to heme/once in view of likely active malignancy. PRBC as needed. BP control with meds as ordered. Patient not on RAAS janine hence added losar silveira 25 mg/d Glycemic control Dialysis consistent diet Further work up/management as per primary team Dose meds/antibiotics (if needed) for ESRD status. Avoid fleets enema/magnesium based laxatives. overall prognosis poor. heme/onc following. seen by palliative care. IR consult appreciated for fistulogram. pt s/p CT guided biopsy of renal mass. oncology following Thanks for allowing me to participate in care of your patient. Will follow patient with you. Please call if any Qs. had d/w team and family Dr Barry Hall Office: [phone] Chief Complaint; diarrhoea, left arm swelling, confusion reason for consult: ESRD HPI: Pt is a 53 y/o with hx of ESRD on hemodialysis (TTS) x 6 months via Lt AVF, last dialysis Sat @ [facility] [place] with Dr Reddy, chronic anemia, hyperphosphatemia, secondary hyperparathyroidism, hypertension and Rt renal mass likely with metastasis presented with complaints of confusion, diarrhoea, SOB for last few days and left arm swelling x 2 weeks pt denies any complaints in particular at this time but doesn't feel well. c/o l eg swelling and abdomen distension ROS: noted overnight events Denies chest pain, palpitation, denies shortness of breath, has LUE swelling but better. appetite decreased. rest all other neg except as mentioned in HPI says dialysis is too much Physical Examination: General Appearance: Comfortable, in no acute respiratory distress, co-operative . ill appearing Vitals reviewed and noted as below Head; Atraumatic, normocephalic ENT: no ulcers no thrush. Tongue is midline. Oropharynx: no rash EYES: Pupils are equal, round and reactive to light accommodation. Eye muscles and extraocular movement intact. Sclera is icteric. Neck; supple no lymphadenopathy, no thyromegaly or bruit. Rt infraclavicular hollowing and Rt sternal head prominence noted. also has lump over mid sternal area Lungs: Improved respiratory rate/effort. Breath sounds bilateral clerarer Heart: Normal rate. s1s2 normal. No rub or gallop. Extremities: trace edema. No varicose veins. Neurological: Patient is alert, awake and oriented but confused. No focal deficit. Strength bilateral appropriate and equal. Skin: Warm and dry. Normal turgor. No rash. Palpitation: Normal elasticity for age Abdomen: Abdomen is distended with abdominal wall edema. Bowel sounds +. There is no abdominal tenderness, no guarding/rigidity. has hepatomegaly Psych: limited insight and normal affect/mood MSK: no joint tenderness or swelling. Digits and nails normal, no deformity : kidney or bladder not palpable Access: Lt AV access with thrill and bruit. left forearm swelling better Labs/imaging reviewed. Past medical history, past surgical history, family history, social history, allergy reviewed and noted as below Family Hx: no hx of CKD. Non contributory Objective - Vital Signs/Intake and Output Vital Signs (last 24 hours): Temp Pulse Resp BP Pulse Ox 98.3 F 94 H 20 136/70 94 L 08/13/18 07:59 08/13/18 07:59 08/13/18 07:59 08/13/18 07:59 08/13/18 07:59 Intake and Output: 08/13/18 08/13/18 06:59 18:59 Intake Total 240 Balance 240 - Medications Medications: Current Medications Acetaminophen (Tylenol 325mg Tab) 650 mg PO Q6H PRN PRN Reason: Fever >100.4 F Albumin Human (Albumin Human 25% (25 Gm/100 Ml)) 25 gm IV TTS PRN PRN Reason: Other Albuterol/Ipratropium (Duoneb 3 Mg/0.5 Mg (3 Ml) Ud) 3 ml IH Q2H PRN PRN Reason: Shortness of Breath Aspirin (Aspirin Chewable) 81 mg PO DAILY [facility] Last Admin: 08/13/18 09:19 Dose: 81 mg Atorvastatin Calcium (Lipitor) 40 mg PO DIN [facility] Last Admin: 08/12/18 18:45 Dose: 40 mg Heparin Sodium (Porcine) (Heparin) 5,000 units SC Q8 [facility]; Protocol Last Admin: 08/13/18 05:06 Dose: Not Given Losartan Potassium (Cozaar) 25 mg PO QPM [facility] Last Admin: 08/12/18 18:45 Dose: 25 mg Metoprolol Tartrate (Lopressor) 25 mg PO BID [facility] Last Admin: 08/13/18 09:19 Dose: 25 mg Morphine Sulfate (Morphine) 1 mg IVP Q6 PRN PRN Reason: Pain, severe (8-10) Ondansetron HCl (Zofran Inj) 4 mg IVP Q6H PRN PRN Reason: Nausea/Vomiting Tramadol HCl (Ultram) 50 mg PO TID PRN PRN Reason: Pain, severe (8-10) Last Admin: 08/12/18 07:02 Dose: 50 mg Vitamin B Complex/Vit C/Folic Acid (Nephro-Denice) 1 tab PO 0800 [facility] Last Admin: 08/13/18 09:19 Dose: 1 tab - Labs Labs: 08/13/18 10:20 08/13/18 10:20 PT 24.3 SECONDS (9.4-12.5) H 08/07/18 18:49 INR 2.19 08/07/18 18:49 APTT 30.1 Seconds (26.9-38.3) 08/07/18 18:49
--- NOTE | 2018-08-13 11:45 | CP.PCM.PN ---
<Reji Moss - Last Filed: 08/13/18 11:42> Subjective - Date & Time of Evaluation Date of Evaluation: 08/13/18 Time of Evaluation: 07:20 - Subjective Subjective: Reji Moss DO PGY1 Hospitalist Progress Note for Dr Hood Patient seen and examined at bedside. He reports no complaints. Denies CP, JOHNSON. Tolerating diet. No acute event overnight. Objective - Vital Signs/Intake and Output Vital Signs (last 24 hours): Temp Pulse Resp BP Pulse Ox 98.3 F 94 H 20 136/70 94 L 08/13/18 07:59 08/13/18 07:59 08/13/18 07:59 08/13/18 07:59 08/13/18 07:59 Intake and Output: 08/13/18 08/13/18 06:59 18:59 Intake Total 240 Balance 240 - Medications Medications: Current Medications Acetaminophen (Tylenol 325mg Tab) 650 mg PO Q6H PRN PRN Reason: Fever >100.4 F Albumin Human (Albumin Human 25% (25 Gm/100 Ml)) 25 gm IV TTS PRN PRN Reason: Other Albuterol/Ipratropium (Duoneb 3 Mg/0.5 Mg (3 Ml) Ud) 3 ml IH Q2H PRN PRN Reason: Shortness of Breath Aspirin (Aspirin Chewable) 81 mg PO DAILY [facility] Last Admin: 08/13/18 09:19 Dose: 81 mg Atorvastatin Calcium (Lipitor) 40 mg PO DIN [facility] Last Admin: 08/12/18 18:45 Dose: 40 mg Heparin Sodium (Porcine) (Heparin) 5,000 units SC Q8 [facility]; Protocol Last Admin: 08/13/18 05:06 Dose: Not Given Losartan Potassium (Cozaar) 25 mg PO QPM [facility] Last Admin: 08/12/18 18:45 Dose: 25 mg Metoprolol Tartrate (Lopressor) 25 mg PO BID [facility] Last Admin: 08/13/18 09:19 Dose: 25 mg Morphine Sulfate (Morphine) 1 mg IVP Q6 PRN PRN Reason: Pain, severe (8-10) Ondansetron HCl (Zofran Inj) 4 mg IVP Q6H PRN PRN Reason: Nausea/Vomiting Tramadol HCl (Ultram) 50 mg PO TID PRN PRN Reason: Pain, severe (8-10) Last Admin: 08/12/18 07:02 Dose: 50 mg Vitamin B Complex/Vit C/Folic Acid (Nephro-Denice) 1 tab PO 0800 [facility] Last Admin: 08/13/18 09:19 Dose: 1 tab - Labs Labs: 08/13/18 10:20 08/13/18 10:20 PT 24.3 SECONDS (9.4-12.5) H 08/07/18 18:49 INR 2.19 08/07/18 18:49 APTT 30.1 Seconds (26.9-38.3) 08/07/18 18:49 - Additional Findings Additional findings: - Constitutional Appears: No Acute Distress, Cachectic, Chronically Ill - Head Exam Head Exam: ATRAUMATIC, NORMAL INSPECTION, NORMOCEPHALIC - Eye Exam Eye Exam: EOMI - ENT Exam ENT Exam: Mucous Membranes Moist - Neck Exam Neck Exam: Full ROM - Respiratory Exam Respiratory Exam: Clear to Ausculation Bilateral. absent: Rhonchi, Wheezes Additional comments: soft tissue swelling at xiphoid process, no discharge, no erythema, no open wound, non tender to touch, no change in temp - Cardiovascular Exam Cardiovascular Exam: +S1, +S2. absent: Gallop, JVD, RRR - GI/Abdominal Exam GI & Abdominal Exam: Soft, Normal Bowel Sounds. absent: Tenderness - Extremities Exam Extremities Exam: Full ROM, Normal Capillary Refill, Normal Inspection, Pedal Edema. absent: Joint Swelling - Back Exam Additional comments: decubitus ulcers, stage 2, lower sacrum, 2 cm in diameter, no discharge, dressing applied - Neurological Exam Neurological Exam: Alert, Awake - Psychiatric Exam Psychiatric exam: Depressed, Flat Affect - Skin Skin Exam: Dry, Intact, Normal Color, Warm Assessment and Plan - Assessment and Plan (Free Text) Assessment: 53 y/o male with PMH of HTN, HLD, ESRD on HD TTS, R Renal mass presented for weakness and diarrhea for 3 days. Patient admitted for sepsis and right kidney mass Plan: Resoving epsis: -CT A/P: LLL consolidation -continue with vancomycin PO, meropenem, and doxycycline po -blood cx negative to date -HIV non reactive -ID following, Dr Stephens Right kidney mass: -CT guided biopsy shows: necrotic tissue with a single microscopic focus suspicious for renal clear cell carcinoma -CT A/P: right kidney mass 12.5 cm with mets to liver and lung -s/p CT-guided biposy of right kidney. 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 clean, no pus/discharge -likely due to immoblization, recent hospitalization, deconditioning -reposition q2h -wound care Anemia of chronic disease: -H/H 7.3/22.7 on admission. Baseline 8.5 -s/p 1u pRBC transfusion -continue to monitor , transfuse prn PPX: DVT: SCD, heparin q8h GI:protonix Renal diet PT: recommended [facility]. Med B terminated, social work professor following on future placement Case reviewed and plan discussed with attending Dr Erwin Moss, DO <Sandra Hood R - Last Filed: 08/13/18 15:39> Objective - Vital Signs/Intake and Output Vital Signs (last 24 hours): Temp Pulse Resp BP Pulse Ox 98.3 F 94 H 20 136/70 94 L 08/13/18 07:59 08/13/18 07:59 08/13/18 07:59 08/13/18 07:59 08/13/18 07:59 Intake and Output: 08/13/18 08/13/18 06:59 18:59 Intake Total 240 Balance 240 - Medications Medications: Current Medications Acetaminophen (Tylenol 325mg Tab) 650 mg PO Q6H PRN PRN Reason: Fever >100.4 F Albumin Human (Albumin Human 25% (25 Gm/100 Ml)) 25 gm IV TTS PRN PRN Reason: Other Albuterol/Ipratropium (Duoneb 3 Mg/0.5 Mg (3 Ml) Ud) 3 ml IH Q2H PRN PRN Reason: Shortness of Breath Aspirin (Aspirin Chewable) 81 mg PO DAILY [facility] Last Admin: 08/13/18 09:19 Dose: 81 mg Atorvastatin Calcium (Lipitor) 40 mg PO DIN [facility] Last Admin: 08/12/18 18:45 Dose: 40 mg Heparin Sodium (Porcine) (Heparin) 5,000 units SC Q8 [facility]; Protocol Last Admin: 08/13/18 13:16 Dose: Not Given Losartan Potassium (Cozaar) 25 mg PO QPM [facility] Last Admin: 08/12/18 18:45 Dose: 25 mg Metoprolol Tartrate (Lopressor) 25 mg PO BID [facility] Last Admin: 08/13/18 09:19 Dose: 25 mg Morphine Sulfate (Morphine) 1 mg IVP Q6 PRN PRN Reason: Pain, severe (8-10) Ondansetron HCl (Zofran Inj) 4 mg IVP Q6H PRN PRN Reason: Nausea/Vomiting Tramadol HCl (Ultram) 50 mg PO TID PRN PRN Reason: Pain, severe (8-10) Last Admin: 08/12/18 07:02 Dose: 50 mg Vitamin B Complex/Vit C/Folic Acid (Nephro-Denice) 1 tab PO 0800 [facility] Last Admin: 08/13/18 09:19 Dose: 1 tab - Labs Labs: 08/13/18 10:20 08/13/18 10:20 PT 24.3 SECONDS (9.4-12.5) H 08/07/18 18:49 INR 2.19 08/07/18 18:49 APTT 30.1 Seconds (26.9-38.3) 08/07/18 18:49 Attending/Attestation - Attestation I have personally seen and examined this patient.: Yes I have fully participated in the care of the patient.: Yes I have reviewed all pertinent clinical information, including history, physical exam and plan: Yes Notes (Text): Patient seen and examined by me with resident at approximately 8:55AM on 5/19/19 in the emergency room. Case including HPI, physical exam, and assessment and plan discussed with resident. Agree with above with following additions/corrections. Patient is a 53 year old male with past medical history significant for hypertension, hyperlipidemia, leukocytosis, anemia, ESRD on HD, and right renal mass that presented to the emergency room for weakness and diarrhea for 3 days. Patient states that he is feeling ok. States he is eating well. Patient denies any chest pain or shortness of breath. No nausea, vomiting, or abdominal pain. Patient states he does make urine and denies any dysuria. No fevers or chills. Patient states he is having bowel movements, denies diarrhea. Patient states he is aware of renal carcinoma. Physical exam: General: Awake and alert sitting up in bed in no acute distress HEENT: Normocephalic, atraumatic. Extraocular muscles intact. Pupils equal and reactive, no scleral icterus. Oropharynx is pink and moist. No pharyngeal erythema or exudate appreciated. Neck is supple. Cardiovascular: Normal rhythm. Normal S1 and S2. Positive systolic murmur. No rubs or gallops appreciated Pulmonary: Normal respiratory effort. Decreased breath sounds. No rhonchi, rales, or wheezing appreciated. Gastrointestinal: Soft, nondistended. Nontender. Positive bowel sounds all 4 quadrants. No guarding. Musculoskeletal: Moves all extremities. No calf tenderness. Trace lower extremity edema. Positive LUE edema. Central nervous system: AAO X 3 Dermatologic: Skin warm and dry. Assessment and plan: Patient is a 53 year old male with past medical history sig nificant for hypertension, hyperlipidemia, leukocytosis, anemia, ESRD on HD, and right renal mass that presented to the emergency room for weakness and diarrhea for 3 days. 1. Right renal mass. S/P CT guided biopsy. Pathology results show mostly necrotic tissue showing single microscopic focus suspicious for clear cell renal cell carcinoma. Hem/onc recommendations appreciated, may not be a good candidate for therapy secondary to rapid decline in functional status. Will be re- evaluated if condition improves. Palliative care following, recommendations appreciated. 2. S/P sepsis. Severe leukocytosis. Diarrhea resolved. CT chest/abd/pelvis per radiologist showed findings most compatible with a large right renal malignant neoplasm with diffuse metastasis in the lungs, liver, large pleural based metastatic mass in the right anterior lung base, and multiple presumable metastatic axillary lymph nodes; small pericardial effusion, moderate abdominal and pelvic ascites, small right pleural effusion and severe diffuse anasarca. S/P antibiotic treatment. Blood and urine culture with no growth. Patient afebrile. ID recommendations appreciated. Hem/onc recommendations appreciated. Leukocytosis likely reactive to underlying malignancy. 3. ESRD on HD. Continue dialysis T/Th/Sat per treasury analyst. Continue nephrovite. 4. Dilated cardiomyopathy, chronic systolic CHF. Continue ASA, lipitor, Cozaar, and Metoprolol. Cardiology recommendations appreciated. 2d echo per loader [employer] dies showed four chamber dilatation consistent with CMP, moderated concentric left ventricular hypertrophy, systolic function is moderately impaired, EF 35%, mitral regurgitation is mild to moderate, IVC is normal in size and collapses >50% with inspiration, moderate left pleural effusion, trace pericardial effusion, mild to moderate pulmonary hypertension. 5. Hypertension. Continue Cozaar and Metoprolol. 6. Chronic anemia. S/P 2 units PRBCS. H&H stable. Continue to monitor. 7. Transaminitis. Patient with liver mets. LFTs downtrending. Hep Bs antibody positive. Continue to monitor trend. 8. Left arm edema. Left upper extremity venous doppler negative for DVT. S/P left upper extremity AV fistula angiogram, left innominate vein angioplasty and stent placement with IR. 9. Chronic sacral decubitus ulcers. Continue local wound care. 10. DVT prophylaxis. Heparin. 11. Patient is a full code. Palliative care following. Case was discussed in detail with the patient regarding current diagnosis, study results, and treatment plan. All questions answered.
[2018-08-13 12:56] LABS: BAND 4 % (0-2); NEUTROPHIL 90 % (50.0-70.0)
[2018-08-13 12:57] LABS: ANISOCYTOSIS 1+; HYPOCHROMIA 1+; LYMPHOCYTE 5 % (22.0-35.0); MONOCYTE 1 % (1.0-6.0); OVALOCYTES SLIGHT; PLATELET ESTIMATE LOW (NORMAL); POIKILOCYTOSIS SLIGHT; TEAR DROP CELLS SLIGHT
[2018-08-14 07:04] LABS: ALB/GLOB RATIO 0.8 (1.1-1.8); ALBUMIN 2.9 g/dL (3.0-4.8); CALCIUM 9.3 mg/dL (8.4-10.5)
[2018-08-14 07:08] LABS: BASO # 0.1 K/mm3 (0.0-2.0); BASO % 0.2 % (0.0-3.0); EOS # 0.1 (0.0-0.7); EOS % 0.3 % (1.5-5.0); LYMPH # 2.2 (1.2-3.4); MEAN CELL VOLUME 89.9 fl (80.0-105.0); MEAN CORPUSCULAR HEMOGLOBIN 28.3 pg (25.0-35.0); MEAN CORPUSCULAR HGB CONC 31.5 g/dl (31.0-37.0); MEAN PLATELET VOLUME 10.7 fl (7.0-11.0); MONO # 2.2 (0.1-0.6); MONO % 4.1 % (1.0-6.0); RBC 3.18 10^6/uL (3.5-6.1); RED CELL DISTRIBUTION WIDTH 19.7 % (11.5-14.5)
[2018-08-14 07:35] LABS: WHITE BLOOD COUNT 54.8 10^3/uL (4.5-11.0)
--- NOTE | 2018-08-14 07:44 | CP.PCM.PN ---
Subjective - Date & Time of Evaluation Date of Evaluation: 08/14/18 Time of Evaluation: 06:55 - Subjective Subjective: Easily awaken , Lying in bed, no distress Reason for consultation and follow up: Cardiac evaluation of positive borderline troponin, history of end stage renal disease on hemodialysis, hypertension, hyperlipidemia, renal mass Seen and examined by me and Dr. Meier Objective - Vital Signs/Intake and Output Vital Signs (last 24 hours): Temp Pulse Resp BP Pulse Ox 98.4 F 91 H 18 119/69 97 08/13/18 16:11 08/13/18 17:33 08/13/18 16:11 08/13/18 17:33 08/13/18 16:11 Intake and Output: 08/14/18 08/14/18 06:59 18:59 Intake Total 980 Balance 980 - Medications Medications: Current Medications Acetaminophen (Tylenol 325mg Tab) 650 mg PO Q6H PRN PRN Reason: Fever >100.4 F Albumin Human (Albumin Human 25% (25 Gm/100 Ml)) 25 gm IV TTS PRN PRN Reason: Other Albuterol/Ipratropium (Duoneb 3 Mg/0.5 Mg (3 Ml) Ud) 3 ml IH Q2H PRN PRN Reason: Shortness of Breath Aspirin (Aspirin Chewable) 81 mg PO DAILY [facility] Last Admin: 08/13/18 09:19 Dose: 81 mg Atorvastatin Calcium (Lipitor) 40 mg PO DIN [facility] Last Admin: 08/13/18 17:32 Dose: 40 mg Heparin Sodium (Porcine) (Heparin) 5,000 units SC Q8 [facility]; Protocol Last Admin: 08/14/18 05:12 Dose: Not Given Losartan Potassium (Cozaar) 25 mg PO QPM [facility] Last Admin: 08/13/18 17:33 Dose: 25 mg Metoprolol Tartrate (Lopressor) 25 mg PO BID [facility] Last Admin: 08/13/18 17:35 Dose: Not Given Morphine Sulfate (Morphine) 1 mg IVP Q6 PRN PRN Reason: Pain, severe (8-10) Ondansetron HCl (Zofran Inj) 4 mg IVP Q6H PRN PRN Reason: Nausea/Vomiting Tramadol HCl (Ultram) 50 mg PO TID PRN PRN Reason: Pain, severe (8-10) Last Admin: 05/19/19 22:22 Dose: 50 mg Vitamin B Complex/Vit C/Folic Acid (Nephro-Denice) 1 tab PO 0800 [facility] Last Admin: 08/13/18 09:19 Dose: 1 tab - Labs Labs: 08/14/18 06:30 08/14/18 06:30 PT 24.3 SECONDS (9.4-12.5) H 08/07/18 18:49 INR 2.19 08/07/18 18:49 APTT 30.1 Seconds (26.9-38.3) 08/07/18 18:49 - Constitutional Appears: Non-toxic, No Acute Distress - Head Exam Head Exam: NORMAL INSPECTION, NORMOCEPHALIC - Eye Exam Eye Exam: Normal appearance Pupil Exam: NORMAL ACCOMODATION - ENT Exam ENT Exam: Mucous Membranes Dry - Respiratory Exam Respiratory Exam: Decreased Breath Sounds, NORMAL BREATHING PATTERN - Cardiovascular Exam Cardiovascular Exam: +S1, +S2 - GI/Abdominal Exam GI & Abdominal Exam: Soft, Normal Bowel Sounds - Extremities Exam Additional comments: left arm AV fistula - Neurological Exam Neurological Exam: Alert, Awake - Psychiatric Exam Psychiatric exam: Normal Affect, Normal Mood - Skin Skin Exam: Dry, Normal Color, Warm Additional comments: sacral decubitus Assessment and Plan - Assessment and Plan (Free Text) Assessment: A 53 year old male who came in to the ER due to generalized weakness and diarrhea. He was just recently discharged from [facility] for right renal mass work up. Consult was called due to borderline troponin. History of end stage renal disease on hemodialysis (TTS), hypertension, hyperlipidemia, chronic anemia, renal mass. Follows up with Dr. Childs (Oncologist). Borderline troponin secondary to chronic kidney disease, ruled out acute coronary syndrome. Denies chest pain. EKG showed normal sinus rhythm. No ischemia. No evidence of acute myocardial infarction. Medical treatment. CT of chest showed large right renal malignant neoplasm with diffuse metastasis in the lungs, and liver, large pleural based metastatic mass in the right anterior lung base and multiple presumable metastatic axillary lymph nodes. Left arm swelling negative for thrombosis. Post right renal mass biopsy, suspicious of clear cell renal carcino ma. Cardiac status stable. Denies chest pain. Echo done and showed four chambers dilatation consistent with cardiomyopathy LVEF 35%, mild to moderate MR, moderate left pleural effusion, trace pericardial effusion, mild to moderate pulmonary hypertension. On hemodialysis. Denies shortness of breath. Oncology on consult. Renal on consult. Seen by palliative care. Discharge planning. Plan: Cardiac status stable Feels okay, no distress Heart rate controlled Blood pressure controlled On ASA 81 mg daily,Lipitor 40 mg daily,Lopressor 25 mg BID Continue current treatment Continue current medications Discharge planning Seen by palliative care Continue hemodialysis as per Renal Will follow up Plan and treatment discussed with Dr. Meier
[2018-08-14] MEDS: Multivitamin Vitamin B Complex (Nephro-Vite) Tab PO SCH (08:00)
--- NOTE | 2018-08-14 11:11 | CP.PCM.PCO ---
Physician Communication Note - Physician Communication Note Physician Communication Note: stool cdiff pending,per medical team cleared for DC when bed at [facility]
--- NOTE | 2018-08-14 11:33 | CP.PCM.PN ---
<Greyson Monterroso - Last Filed: 08/14/18 15:26> Subjective - Date & Time of Evaluation Date of Evaluation: 08/14/18 Time of Evaluation: 09:40 - Subjective Subjective: Infectious disease progress note: Patient seen and examined at bedside. No acute events overnight. C/o of having diarrhea yesterday. No other complaints. 12 point ROS performed and negative unless stated above. Objective - Vital Signs/Intake and Output Vital Signs (last 24 hours): Temp Pulse Resp BP Pulse Ox 98.4 F 87 20 131/70 92 L 08/14/18 08:05 08/14/18 10:04 08/14/18 08:05 08/14/18 10:04 08/14/18 08:05 Intake and Output: 08/14/18 08/14/18 06:59 18:59 Intake Total 980 Balance 980 - Medications Medications: Current Medications Acetaminophen (Tylenol 325mg Tab) 650 mg PO Q6H PRN PRN Reason: Fever >100.4 F Albumin Human (Albumin Human 25% (25 Gm/100 Ml)) 25 gm IV TTS PRN PRN Reason: Other Albuterol/Ipratropium (Duoneb 3 Mg/0.5 Mg (3 Ml) Ud) 3 ml IH Q2H PRN PRN Reason: Shortness of Breath Aspirin (Aspirin Chewable) 81 mg PO DAILY [facility] Last Admin: 08/14/18 10:03 Dose: 81 mg Atorvastatin Calcium (Lipitor) 40 mg PO DIN [facility] Last Admin: 08/13/18 17:32 Dose: 40 mg Heparin Sodium (Porcine) (Heparin) 5,000 units SC Q8 [facility]; Protocol Last Admin: 08/14/18 05:12 Dose: Not Given Losartan Potassium (Cozaar) 25 mg PO QPM [facility] Last Admin: 08/13/18 17:33 Dose: 25 mg Metoprolol Tartrate (Lopressor) 25 mg PO BID [facility] Last Admin: 08/14/18 10:04 Dose: 25 mg Morphine Sulfate (Morphine) 1 mg IVP Q6 PRN PRN Reason: Pain, severe (8-10) Ondansetron HCl (Zofran Inj) 4 mg IVP Q6H PRN PRN Reason: Nausea/Vomiting Sevelamer HCl (Renagel) 800 mg PO TID [facility] Tramadol HCl (Ultram) 50 mg PO TID PRN PRN Reason: Pain, severe (8-10) Last Admin: 08/13/18 22:22 Dose: 50 mg Vitamin B Complex/Vit C/Folic Acid (Nephro-Denice) 1 tab PO 0800 [facility] Last Admin: 08/14/18 08:00 Dose: 1 tab - Labs Labs: 08/14/18 06:30 08/14/18 06:30 PT 24.3 SECONDS (9.4-12.5) H 08/07/18 18:49 INR 2.19 08/07/18 18:49 APTT 30.1 Seconds (26.9-38.3) 08/07/18 18:49 - Constitutional Appears: No Acute Distress - Head Exam Head Exam: ATRAUMATIC, NORMOCEPHALIC - Eye Exam Eye Exam: EOMI - ENT Exam ENT Exam: Mucous Membranes Moist - Respiratory Exam Respiratory Exam: Clear to Ausculation Bilateral. absent: Wheezes - Cardiovascular Exam Cardiovascular Exam: RRR, +S1, +S2 - GI/Abdominal Exam GI & Abdominal Exam: Soft. absent: Tenderness - Extremities Exam Extremities Exam: absent: Calf Tenderness, Pedal Edema Additional comments: LUE with less edema - Neurological Exam Neurological Exam: Alert, Awake - Psychiatric Exam Psychiatric exam: Normal Mood - Skin Skin Exam: Dry, Warm Assessment and Plan - Assessment and Plan (Free Text) Assessment: Sepsis 2/2 HCAP Diarrhea, r/o C diff Right renal mass with metastatic disease to the liver and lung s/p biopsy of renal mass consistent with RCC Elevated troponin Anasarca ESRD on HD Anemia Hypertension LUE edema Diarrhea, pending C diff, will f/u Completed meropenem, and doxycycline, patient at high risk of nosocomial infection F/u fistulogram report - severe compression of L innominate v with stent placement Pathology of renal biopsy - consistent with RCC Follow-up septic work-up, blood, urine, sputum, MRSA screen Follow-up with cardiology, hematology, and palliative care consultations Continue to monitor for any changes Case and plan to be reviewed and discussed with Dr. Stephens <Stu Stephens - Last Filed: 08/14/18 15:27> Objective - Vital Signs/Intake and Output Vital Signs (last 24 hours): Temp Pulse Resp BP Pulse Ox 98.4 F 87 20 131/70 92 L 08/14/18 08:05 08/14/18 10:04 08/14/18 08:05 08/14/18 10:04 08/14/18 08:05 Intake and Output: 08/14/18 08/14/18 06:59 18:59 Intake Total 980 Balance 980 - Medications Medications: Current Medications Acetaminophen (Tylenol 325mg Tab) 650 mg PO Q6H PRN PRN Reason: Fever >100.4 F Albumin Human (Albumin Human 25% (25 Gm/100 Ml)) 25 gm IV TTS PRN PRN Reason: Other Albuterol/Ipratropium (Duoneb 3 Mg/0.5 Mg (3 Ml) Ud) 3 ml IH Q2H PRN PRN Reason: Shortness of Breath Aspirin (Aspirin Chewable) 81 mg PO DAILY [facility] Last Admin: 08/14/18 10:03 Dose: 81 mg Atorvastatin Calcium (Lipitor) 40 mg PO DIN [facility] Last Admin: 08/13/18 17:32 Dose: 40 mg Heparin Sodium (Porcine) (Heparin) 5,000 units SC Q8 [facility]; Protocol Last Admin: 08/14/18 05:12 Dose: Not Given Losartan Potassium (Cozaar) 25 mg PO QPM [facility] Last Admin: 08/13/18 17:33 Dose: 25 mg Metoprolol Tartrate (Lopressor) 25 mg PO BID [facility] Last Admin: 08/14/18 10:04 Dose: 25 mg Morphine Sulfate (Morphine) 1 mg IVP Q6 PRN PRN Reason: Pain, severe (8-10) Ondansetron HCl (Zofran Inj) 4 mg IVP Q6H PRN PRN Reason: Nausea/Vomiting Sevelamer HCl (Renagel) 800 mg PO TID [facility] Tramadol HCl (Ultram) 50 mg PO TID PRN PRN Reason: Pain, severe (8-10) Last Admin: 08/13/18 22:22 Dose: 50 mg Vitamin B Complex/Vit C/Folic Acid (Nephro-Denice) 1 tab PO 0800 [facility] Last Admin: 08/14/18 08:00 Dose: 1 tab - Labs Labs: 08/14/18 06:30 08/14/18 06:30 PT 24.3 SECONDS (9.4-12.5) H 08/07/18 18:49 INR 2.19 08/07/18 18:49 APTT 30.1 Seconds (26.9-38.3) 08/07/18 18:49 Attending/Attestation - Attestation I have personally seen and examined this patient.: Yes I have fully participated in the care of the patient.: Yes I have reviewed all pertinent clinical information, including history, physical exam and plan: Yes
--- NOTE | 2018-08-14 14:09 | CP.PCM.PN ---
Subjective - Date & Time of Evaluation Date of Evaluation: 08/14/18 Time of Evaluation: 14:09 - Subjective Subjective: Nephrology Consultation Note: Assessment: stable fluid overload with anasarca and likely underlying metastatic malignancy (renal cell carcinoma) Hypertensive Chronic Kidney Disease (I12.0) End stage renal disease (N18.6) dependence on hemodialysis (Z99.2) (TTS) via AV access Anemia (D64.9), Hyperphosphatemia (E83.39), Secondary Hyperparathyroidism (E21.1), HTN (I12.0) thrombocytopenia, lactic acidosis, leukocytosis sys CHF LVEF 35% LUE edema due to innominate vein compression s/p stent 08/11/18 Plan: Will plan for HD as TTS schedule Continue with Nephrovite 1 tab/day. defer MAVIS use to heme/once in view of likely active malignancy. PRBC as needed. BP control with meds as ordered. Patient not on RAAS janine hence added losar silveira 25 mg/d Glycemic control Dialysis consistent diet Further work up/management as per primary team Dose meds/antibiotics (if needed) for ESRD status. Avoid fleets enema/magnesium based laxatives. overall prognosis poor. heme/onc following. seen by palliative care. IR consult appreciated for fistulogram. pt s/p CT guided biopsy of renal mass. oncology following Thanks for allowing me to participate in care of your patient. Will follow patient with you. Please call if any Qs. had d/w team and family Dr Barry Hall Office: [phone] Chief Complaint; diarrhoea, left arm swelling, confusion reason for consult: ESRD HPI: Pt is a 53 y/o with hx of ESRD on hemodialysis (TTS) x 6 months via Lt AVF, last dialysis Sat @ [facility] [place] with Dr Reddy, chronic anemia, hyperphosphatemia, secondary hyperparathyroidism, hypertension and Rt renal mass likely with metastasis presented with complaints of confusion, diarrhoea, SOB for last few days and left arm swelling x 2 weeks pt denies any complaints in particular at this time but doesn't feel well. c/o l eg swelling and abdomen distension ROS: noted overnight events Denies chest pain, palpitation, denies shortness of breath, has LUE swelling but better. appetite decreased. rest all other neg except as mentioned in HPI says dialysis is too much Physical Examination: General Appearance: Comfortable, in no acute respiratory distress, co-operative . ill appearing Vitals reviewed and noted as below Head; Atraumatic, normocephalic ENT: no ulcers no thrush. Tongue is midline. Oropharynx: no rash EYES: Pupils are equal, round and reactive to light accommodation. Eye muscles and extraocular movement intact. Sclera is icteric. Neck; supple no lymphadenopathy, no thyromegaly or bruit. Rt infraclavicular hollowing and Rt sternal head prominence noted. also has lump over mid sternal area Lungs: Improved respiratory rate/effort. Breath sounds bilateral clerarer Heart: Normal rate. s1s2 normal. No rub or gallop. Extremities: trace edema. No varicose veins. Neurological: Patient is alert, awake and oriented but confused. No focal deficit. Strength bilateral appropriate and equal. Skin: Warm and dry. Normal turgor. No rash. Palpitation: Normal elasticity for age Abdomen: Abdomen is distended with abdominal wall edema. Bowel sounds +. There is no abdominal tenderness, no guarding/rigidity. has hepatomegaly Psych: limited insight and normal affect/mood MSK: no joint tenderness or swelling. Digits and nails normal, no deformity : kidney or bladder not palpable Access: Lt AV access with thrill and bruit. left forearm swelling much better Labs/imaging reviewed. Past medical history, past surgical history, family history, social history, allergy reviewed and noted as below Family Hx: no hx of CKD. Non contributory Objective - Vital Signs/Intake and Output Vital Signs (last 24 hours): Temp Pulse Resp BP Pulse Ox 98.4 F 87 20 131/70 92 L 08/14/18 08:05 08/14/18 10:04 08/14/18 08:05 08/14/18 10:04 08/14/18 08:05 Intake and Output: 08/14/18 08/14/18 06:59 18:59 Intake Total 980 Balance 980 - Medications Medications: Current Medications Acetaminophen (Tylenol 325mg Tab) 650 mg PO Q6H PRN PRN Reason: Fever >100.4 F Albumin Human (Albumin Human 25% (25 Gm/100 Ml)) 25 gm IV TTS PRN PRN Reason: Other Albuterol/Ipratropium (Duoneb 3 Mg/0.5 Mg (3 Ml) Ud) 3 ml IH Q2H PRN PRN Reason: Shortness of Breath Aspirin (Aspirin Chewable) 81 mg PO DAILY [facility] Last Admin: 08/14/18 10:03 Dose: 81 mg Atorvastatin Calcium (Lipitor) 40 mg PO DIN [facility] Last Admin: 08/13/18 17:32 Dose: 40 mg Heparin Sodium (Porcine) (Heparin) 5,000 units SC Q8 [facility]; Protocol Last Admin: 08/14/18 05:12 Dose: Not Given Losartan Potassium (Cozaar) 25 mg PO QPM [facility] Last Admin: 08/13/18 17:33 Dose: 25 mg Metoprolol Tartrate (Lopressor) 25 mg PO BID [facility] Last Admin: 08/14/18 10:04 Dose: 25 mg Morphine Sulfate (Morphine) 1 mg IVP Q6 PRN PRN Reason: Pain, severe (8-10) Ondansetron HCl (Zofran Inj) 4 mg IVP Q6H PRN PRN Reason: Nausea/Vomiting Sevelamer HCl (Renagel) 800 mg PO TID [facility] Tramadol HCl (Ultram) 50 mg PO TID PRN PRN Reason: Pain, severe (8-10) Last Admin: 08/13/18 22:22 Dose: 50 mg Vitamin B Complex/Vit C/Folic Acid (Nephro-Denice) 1 tab PO 0800 [facility] Last Admin: 08/14/18 08:00 Dose: 1 tab - Labs Labs: 08/14/18 06:30 08/14/18 06:30 PT 24.3 SECONDS (9.4-12.5) H 08/07/18 18:49 INR 2.19 08/07/18 18:49 APTT 30.1 Seconds (26.9-38.3) 08/07/18 18:49
--- NOTE | 2018-08-14 16:06 | CP.PCM.PN ---
<Reji Moss - Last Filed: 08/14/18 16:03> Subjective - Date & Time of Evaluation Date of Evaluation: 08/14/18 Time of Evaluation: 07:10 - Subjective Subjective: Reji Moss DO PGY1 Hospitalist Progress Note for Dr Hood Patient seen and examined at bedside. Patient was restless overnight, took his O2 lines out, and not cooperative with nurses. He reports no complaints at am. Denies CP, JOHNSON. Tolerating diet. Objective - Vital Signs/Intake and Output Vital Signs (last 24 hours): Temp Pulse Resp BP Pulse Ox 98.4 F 87 20 131/70 92 L 08/14/18 08:05 08/14/18 10:04 08/14/18 08:05 08/14/18 10:04 08/14/18 08:05 Intake and Output: 08/14/18 08/14/18 06:59 18:59 Intake Total 980 Balance 980 - Medications Medications: Current Medications Acetaminophen (Tylenol 325mg Tab) 650 mg PO Q6H PRN PRN Reason: Fever >100.4 F Albumin Human (Albumin Human 25% (25 Gm/100 Ml)) 25 gm IV TTS PRN PRN Reason: Other Albuterol/Ipratropium (Duoneb 3 Mg/0.5 Mg (3 Ml) Ud) 3 ml IH Q2H PRN PRN Reason: Shortness of Breath Aspirin (Aspirin Chewable) 81 mg PO DAILY [facility] Last Admin: 08/14/18 10:03 Dose: 81 mg Atorvastatin Calcium (Lipitor) 40 mg PO DIN [facility] Last Admin: 08/13/18 17:32 Dose: 40 mg Heparin Sodium (Porcine) (Heparin) 5,000 units SC Q8 [facility]; Protocol Last Admin: 08/14/18 05:12 Dose: Not Given Losartan Potassium (Cozaar) 25 mg PO QPM [facility] Last Admin: 08/13/18 17:33 Dose: 25 mg Metoprolol Tartrate (Lopressor) 25 mg PO BID [facility] Last Admin: 08/14/18 10:04 Dose: 25 mg Morphine Sulfate (Morphine) 1 mg IVP Q6 PRN PRN Reason: Pain, severe (8-10) Ondansetron HCl (Zofran Inj) 4 mg IVP Q6H PRN PRN Reason: Nausea/Vomiting Sevelamer HCl (Renagel) 800 mg PO TID [facility] Tramadol HCl (Ultram) 50 mg PO TID PRN PRN Reason: Pain, severe (8-10) Last Admin: 08/13/18 22:22 Dose: 50 mg Vitamin B Complex/Vit C/Folic Acid (Nephro-Denice) 1 tab PO 0800 [facility] Last Admin: 08/14/18 08:00 Dose: 1 tab - Labs Labs: 08/14/18 06:30 08/14/18 06:30 PT 24.3 SECONDS (9.4-12.5) H 08/07/18 18:49 INR 2.19 08/07/18 18:49 APTT 30.1 Seconds (26.9-38.3) 08/07/18 18:49 - Additional Findings Additional findings: - Constitutional Appears: No Acute Distress, Cachectic, Chronically Ill - Head Exam Head Exam: ATRAUMATIC, NORMAL INSPECTION, NORMOCEPHALIC - Eye Exam Eye Exam: EOMI - ENT Exam ENT Exam: Mucous Membranes Moist - Neck Exam Neck Exam: Full ROM - Respiratory Exam Respiratory Exam: Clear to Ausculation Bilateral. absent: Rhonchi, Wheezes Additional comments: soft tissue swelling at xiphoid process, no discharge, no erythema, no open wound, non tender to touch, no change in temp - Cardiovascular Exam Cardiovascular Exam: +S1, +S2. absent: Gallop, JVD, RRR - GI/Abdominal Exam GI & Abdominal Exam: Soft, Normal Bowel Sounds. absent: Tenderness - Extremities Exam Extremities Exam: Full ROM, Normal Capillary Refill, Normal Inspection, Pedal Edema. absent: Joint Swelling - Back Exam Additional comments: decubitus ulcers, stage 2, lower sacrum, 2 cm in diameter, no discharge, dressing applied - Neurological Exam Neurological Exam: Alert, Awake - Psychiatric Exam Psychiatric exam: Depressed, Flat Affect - Skin Skin Exam: Dry, Intact, Normal Color, Warm Assessment and Plan - Assessment and Plan (Free Text) Assessment: 53 y/o male with PMH of HTN, HLD, ESRD on HD TTS, R Renal mass presented for weakness and diarrhea for 3 days. Patient admitted for sepsis and right kidney mass Plan: Right kidney mass: -CT guided biopsy shows: necrotic tissue with a single microscopic focus suspicious for renal clear cell carcinoma -CT A/P: right kidney mass 12.5 cm with mets to liver and lung -continue ultram 50 tid prn -palliative care on board -heme/onc Dr Childs onboard Resolved sepsis: -CT A/P: LLL consolidation -blood cx negative to date -HIV non reactive -ID following, Dr Stephens ESRD on HD: -likely due to hypertensive kidney disease -continue HD on TTS -hyperphosphatemia, hyperparathyroidism -continue nephrovite -nephrology following Dr Jhaveri HTN: -continue asa, lipitor, lopressor 25 bid, coozar 25 qd -echo: lvEF 35%, 4 chamber dilatation consistent with cardiomyopathy, mild pHTN -cardiology following Dr Meier Diarrhea: -f/u stool cx, c diff ag/toxin -fecal leukocytosis Leukocytosis: -53.9 on admission, fluctuate but still elevated -baseline is 30 as per patient's independent sales representative -peripheral smear ordered Transaminitis: -LFT trending down -hepatitis panel: Hep Bs Ab positive -PT/INR 24.3/2.19 Left arm swelling: -DVT negative for DVT -S/P fistulogram: severe compression found, s/p angioplasty and stent placement Chronic decubitus ulcers, present on admission: -stage 2. clean, no pus/discharge -likely due to immoblization, recent hospitalization, deconditioning -reposition q2h -wound care Anemia of chronic disease: -H/H 7.3/22.7 on admission. Baseline 8.5 -s/p 2u pRBC transfusion -continue to monitor , transfuse prn PPX: DVT: SCD, heparin q8h GI:protonix Renal diet PT: recommended PRETTY. Med B terminated, social media strategist following on future placement Case reviewed and plan discussed with attending Dr Erwin Moss, DO <Sandra Hood R - Last Filed: 08/14/18 17:28> Objective - Vital Signs/Intake and Output Vital Signs (last 24 hours): Temp Pulse Resp BP Pulse Ox 97.4 F L 84 16 154/80 H 98 08/14/18 17:07 08/14/18 17:07 08/14/18 17:07 08/14/18 17:07 08/14/18 17:07 Intake and Output: 08/14/18 08/14/18 06:59 18:59 Intake Total 980 Balance 980 - Medications Medications: Current Medications Acetaminophen (Tylenol 325mg Tab) 650 mg PO Q6H PRN PRN Reason: Fever >100.4 F Albumin Human (Albumin Human 25% (25 Gm/100 Ml)) 25 gm IV TTS PRN PRN Reason: Other Albuterol/Ipratropium (Duoneb 3 Mg/0.5 Mg (3 Ml) Ud) 3 ml IH Q2H PRN PRN Reason: Shortness of Breath Aspirin (Aspirin Chewable) 81 mg PO DAILY [facility] Last Admin: 08/14/18 10:03 Dose: 81 mg Atorvastatin Calcium (Lipitor) 40 mg PO DIN [facility] Last Admin: 08/13/18 17:32 Dose: 40 mg Heparin Sodium (Porcine) (Heparin) 5,000 units SC Q8 [facility]; Protocol Last Admin: 08/14/18 14:00 Dose: 5,000 units Losartan Potassium (Cozaar) 25 mg PO QPM [facility] Last Admin: 08/13/18 17:33 Dose: 25 mg Metoprolol Tartrate (Lopressor) 25 mg PO BID [facility] Last Admin: 08/14/18 10:04 Dose: 25 mg Morphine Sulfate (Morphine) 1 mg IVP Q6 PRN PRN Reason: Pain, severe (8-10) Ondansetron HCl (Zofran Inj) 4 mg IVP Q6H PRN PRN Reason: Nausea/Vomiting Sevelamer HCl (Renagel) 800 mg PO TID [facility] Last Admin: 08/14/18 14:00 Dose: 800 mg Tramadol HCl (Ultram) 50 mg PO TID PRN PRN Reason: Pain, severe (8-10) Last Admin: 08/13/18 22:22 Dose: 50 mg Vitamin B Complex/Vit C/Folic Acid (Nephro-Denice) 1 tab PO 0800 [facility] Last Admin: 08/14/18 08:00 Dose: 1 tab - Labs Labs: 08/14/18 06:30 08/14/18 06:30 PT 24.3 SECONDS (9.4-12.5) H 08/07/18 18:49 INR 2.19 08/07/18 18:49 APTT 30.1 Seconds (26.9-38.3) 08/07/18 18:49 Attending/Attestation - Attestation I have personally seen and examined this patient.: Yes I have fully participated in the care of the patient.: Yes I have reviewed all pertinent clinical information, including history, physical exam and plan: Yes Notes (Text): Patient seen and examined by me with resident at approximately 10:40AM on 08/14/18 in the emergency room. Case including HPI, physical exam, and assessment and plan discussed with resident. Agree with above with following additions/corrections. Patient is a 53 year old male with past medical history significant for hypertension, hyperlipidemia, leukocytosis, anemia, ESRD on HD, and right renal mass that presented to the emergency room for weakness and diarrhea for 3 days. Patient states that he feels ok. Per patient's sister at bedside, patient had some respiratory distress earlier in the morning as he removed his oxygen. Patient denies chest pain or shortness of breath. No nausea, vomiting, or abdominal pain. No fevers or chills. Patient complains of some watery bowel movements today. Physical exam: General: Awake and alert lying in bed in no acute distress HEENT: Normocephalic, atraumatic. Extraocular muscles intact. Pupils equal and reactive, no scleral icterus. Oropharynx is pink and moist. No pharyngeal erythema or exudate appreciated. Neck is supple. Cardiovascular: Normal rhythm. Normal S1 and S2. Positive systolic murmur. No rubs or gallops appreciated Pulmonary: Normal respiratory effort. Decreased breath sounds. No rhonchi, rales, or wheezing appreciated. Gastrointestinal: Soft, nondistended. Nontender. Positive bowel sounds all 4 quadrants. No guarding. Musculoskeletal: Moves all extremities. No calf tenderness. Positive LUE edema improving. Positive bilateral lower extremity edema. Central nervous system: AAO X 3 Dermatologic: Skin warm and dry. Assessment and plan: Patient is a 53 year old male with past medical history significant for hypertension, hyperlipidemia, leukocytosis, anemia, ESRD on HD, and right renal mass that presented to the emergency room for weakness and diarrhea for 3 days. 1. Right renal mass. S/P CT guided biopsy. Pathology results show mostly necrotic tissue showing single microscopic focus suspicious for clear cell renal cell carcinoma. Hem/onc recommendations appreciated, may not be a good candidate for therapy secondary to rapid decline in functional status. Will be re- evaluated once condition improves. Palliative care following, recommendations appreciated. 2. S/P sepsis. Severe leukocytosis. Having some diarrhea today. Stool studies pending. CT chest/abd/pelvis per radiologist showed findings most compatible with a large right renal malignant neoplasm with diffuse metastasis in the lungs, liver, large pleural based metastatic mass in the right anterior lung base, and multiple presumable metastatic axiallary lymph nodes; small pericardial effusion, moderate abdominal and pelvic ascites, small right pleural effusion and severe diffuse anasarca. S/P antibiotic treatment. Blood and urine culture with no growth. Patient afebrile. ID recommendations appreciated. Hem/onc recommendations appreciated. Leukocytosis likely reactive to underlying malignancy. 3. ESRD on HD. Continue dialysis T/Th/Sat per acupressurist. Continue nephrovite and renagel. 4. Dilated cardiomyopathy, chronic systolic CHF. Continue ASA, Lipitor, Cozaar, and Metoprolol. Cardiology recommendations appreciated. 2d echo per pleat patternmaker showed four chamber dilatation consistent with CMP, moderated concentric left ventricular hypertrophy, systolic function is moderately impaired, EF 35%, mitral regurgitation is mild to moderate, IVC is normal in size and collapses >50% with inspiration, moderate left pleural effusion, trace pericardial effusion, mild to moderate pulmonary hypertension. 5. Hypertension. Continue Cozaar and Metoprolol. 6. Chronic anemia. S/P 2 units PRBCS. H&H stable. Continue to monitor. 7. Transaminitis. Patient with liver mets. LFTs fluctuating. Hep Bs antibody positive. Continue to monitor trend. 8. Left arm edema. Left upper extremity venous doppler negative for DVT. S/P left upper extremity AV fistula angiogram, left innominate vein angioplasty and stent placement with IR. 9. Chronic sacral decubitus ulcers. Continue local wound care. 10. DVT prophylaxis. Heparin. 11. Patient is a full code. Palliative care following. Case was discussed in detail with the patient and patient's sister at bedside with patient's permission regarding current diagnosis, study results, and treatment plan. All questions answered.
[2018-08-15 04:22] VITALS: RESP 20
--- NOTE | 2018-08-15 06:45 | CP.PCM.PN ---
Subjective - Date & Time of Evaluation Date of Evaluation: 08/15/18 Time of Evaluation: 06:20 - Subjective Subjective: Sitting side of bed, awake, no distress Reason for consultation and follow up: Cardiac evaluation of positive borderline troponin, history of end stage renal disease on hemodialysis, hypertension, hyperlipidemia, renal mass Seen and examined by me and Dr. Meier Objective - Vital Signs/Intake and Output Vital Signs (last 24 hours): Temp Pulse Resp BP Pulse Ox 98.5 F 79 20 145/70 94 L 08/15/18 00:01 08/15/18 00:01 08/15/18 00:01 08/15/18 00:01 08/15/18 00:01 Intake and Output: 08/14/18 08/15/18 18:59 06:59 Intake Total 720 Balance 720 - Medications Medications: Current Medications Acetaminophen (Tylenol 325mg Tab) 650 mg PO Q6H PRN PRN Reason: Fever >100.4 F Albumin Human (Albumin Human 25% (25 Gm/100 Ml)) 25 gm IV TTS PRN PRN Reason: Other Albuterol/Ipratropium (Duoneb 3 Mg/0.5 Mg (3 Ml) Ud) 3 ml IH Q2H PRN PRN Reason: Shortness of Breath Aspirin (Aspirin Chewable) 81 mg PO DAILY [facility] Last Admin: 08/14/18 10:03 Dose: 81 mg Atorvastatin Calcium (Lipitor) 40 mg PO DIN [facility] Last Admin: 08/14/18 18:44 Dose: 40 mg Heparin Sodium (Porcine) (Heparin) 5,000 units SC Q8 [facility]; Protocol Last Admin: 08/15/18 05:40 Dose: Not Given Losartan Potassium (Cozaar) 25 mg PO QPM [facility] Last Admin: 08/14/18 18:44 Dose: 25 mg Metoprolol Tartrate (Lopressor) 25 mg PO BID [facility] Last Admin: 08/14/18 18:45 Dose: 25 mg Morphine Sulfate (Morphine) 1 mg IVP Q6 PRN PRN Reason: Pain, severe (8-10) Ondansetron HCl (Zofran Inj) 4 mg IVP Q6H PRN PRN Reason: Nausea/Vomiting Sevelamer HCl (Renagel) 800 mg PO TID [facility] Last Admin: 08/14/18 18:45 Dose: 800 mg Tramadol HCl (Ultram) 50 mg PO TID PRN PRN Reason: Pain, severe (8-10) Last Admin: 08/13/18 22:22 Dose: 50 mg Vitamin B Complex/Vit C/Folic Acid (Nephro-Denice) 1 tab PO 0800 [facility] Last Admin: 08/14/18 08:00 Dose: 1 tab - Labs Labs: 08/14/18 06:30 08/14/18 06:30 PT 24.3 SECONDS (9.4-12.5) H 08/07/18 18:49 INR 2.19 08/07/18 18:49 APTT 30.1 Seconds (26.9-38.3) 08/07/18 18:49 - Constitutional Appears: Non-toxic, No Acute Distress - Head Exam Head Exam: NORMAL INSPECTION, NORMOCEPHALIC - Eye Exam Eye Exam: Normal appearance Pupil Exam: NORMAL ACCOMODATION - ENT Exam ENT Exam: Mucous Membranes Dry - Respiratory Exam Respiratory Exam: Decreased Breath Sounds, NORMAL BREATHING PATTERN - Cardiovascular Exam Cardiovascular Exam: +S1, +S2 - GI/Abdominal Exam GI & Abdominal Exam: Soft, Normal Bowel Sounds - Extremities Exam Extremities Exam: Full ROM Additional comments: 2+edema Left arm AV graft - Neurological Exam Neurological Exam: Alert, Awake - Psychiatric Exam Psychiatric exam: Normal Affect, Normal Mood - Skin Skin Exam: Dry, Normal Color, Warm Additional comments: sacral decubitus Assessment and Plan - Assessment and Plan (Free Text) Assessment: A 53 year old male who came in to the ER due to generalized weakness and diarrhea. He was just recently discharged from [facility] for right renal mass work up. Consult was called due to borderline troponin. History of end stage renal disease on hemodialysis (TTS), hypertension, hyperlipidemia, chronic anemia, renal mass. Follows up with Dr. Childs (Oncologist). Borderline troponin secondary to chronic kidney disease, ruled out acute coronary syndrome. Denies chest pain. EKG showed normal sinus rhythm. No ischemia. No evidence of acute myocardial infarction. Medical treatment. CT of chest showed large right renal malignant neoplasm with diffuse metastasis in the lungs, and liver, large pleural based metastatic mass in the right anterior lung base and multiple presumable metastatic axillary lymph nodes. Left arm swelling negative for thrombosis. Post right renal mass biopsy, suspicious of clear cell renal carcinoma. Cardiac status stable. Denies chest pain. Echo done and showed four chambers dilatation consistent with cardiomyopathy LVEF 35%, mild to moderate MR, moderate left pleural effusion, trace pericardial effusion, mild to moderate pulmonary hypertension. On hemodialysis. Denies shortness of breath. Oncology on consult. Renal on consult. Seen by palliative care. Discharge planning. Episode of diarrhea yesterday. Stool sent for C-diff. Plan: Episode of agitation last night Cardiac status stable Feels okay, no distress Heart rate controlled Blood pressure controlled On ASA 81 mg daily,Lipitor 40 mg daily,Lopressor 25 mg BID Continue current treatment Continue current medications Continue hemodialysis as per Renal Stool sent for C-diff awaiting results. Discharge planning Will follow up Plan and treatment discussed with Dr. Meier
[2018-08-15 07:20] LABS: BASO # 0.06 K/mm3 (0.0-2.0); BASO % 0.1 % (0.0-3.0); EOS # 0.1 (0.0-0.7); EOS % 0.2 % (1.5-5.0); HEMOGLOBIN 9.2 g/dL (14.0-18.0); LYMPH # 2.5 (1.2-3.4); LYMPH % 4.2 % (22.0-35.0); MEAN CELL VOLUME 89.3 fl (80.0-105.0); MEAN CORPUSCULAR HEMOGLOBIN 28.1 pg (25.0-35.0); MEAN CORPUSCULAR HGB CONC 31.5 g/dl (31.0-37.0); MEAN PLATELET VOLUME 10.9 fl (7.0-11.0); MONO # 2.2 (0.1-0.6); MONO % 3.8 % (1.0-6.0); RBC 3.27 10^6/uL (3.5-6.1); RED CELL DISTRIBUTION WIDTH 19.6 % (11.5-14.5)
[2018-08-15 07:38] LABS: ALB/GLOB RATIO 0.8 (1.1-1.8); ALBUMIN 2.8 g/dL (3.0-4.8); CALCIUM 9.4 mg/dL (8.4-10.5)
[2018-08-15] MEDS: Multivitamin Vitamin B Complex (Nephro-Vite) Tab PO SCH (08:00)
--- NOTE | 2018-08-15 11:28 | CP.PCM.PN ---
Subjective - Date & Time of Evaluation Date of Evaluation: 08/15/18 Time of Evaluation: 11:27 - Subjective Subjective: Nephrology Consultation Note: Assessment: stable fluid overload with anasarca and likely underlying metastatic malignancy (renal cell carcinoma) Hypertensive Chronic Kidney Disease (I12.0) End stage renal disease (N18.6) dependence on hemodialysis (Z99.2) (TTS) via AV access Anemia (D64.9), Hyperphosphatemia (E83.39), Secondary Hyperparathyroidism (E21.1), HTN (I12.0) thrombocytopenia, lactic acidosis, leukocytosis sys CHF LVEF 35% LUE edema due to innominate vein compression s/p stent 08/11/18 Plan: Will plan for HD as TTS schedule Continue with Nephrovite 1 tab/day. defer MAVIS use to heme/once in view of likely active malignancy. PRBC as needed. BP control with meds as ordered. Patient not on RAAS janine hence added losar silveira 25 mg/d as with sys CHF as well Glycemic control Dialysis consistent diet started phos binders as last phos 7.7 Further work up/management as per primary team Dose meds/antibiotics (if needed) for ESRD status. Avoid fleets enema/magnesium based laxatives. overall prognosis poor. heme/onc following. seen by palliative care. IR consult appreciated for fistulogram. pt s/p CT guided biopsy of renal mass. oncology following Thanks for allowing me to participate in care of your patient. Will follow patient with you. Please call if any Qs. had d/w team and family Dr Barry Hall Office: [phone] Chief Complaint; diarrhoea, left arm swelling, confusion reason for consult: ESRD HPI: Pt is a 53 y/o with hx of ESRD on hemodialysis (TTS) x 6 months via Lt AVF, last dialysis Sat @ [facility] [place] with Dr Reddy, chronic anemia, hyperphosphatemia, secondary hyperparathyroidism, hypertension and Rt renal mass likely with metastasis presented with complaints of confusion, diarrhoea, SOB for last few days and left arm swelling x 2 weeks pt denies any complaints in particular at this time but doesn't feel well. c/o leg swelling and abdomen distension ROS: noted overnight events Denies chest pain, palpitation, denies shortness of breath, has LUE swelling but better. appetite decreased. rest all other neg except as mentioned in HPI says dialysis is too much Physical Examination: seen during HD General Appearance: Comfortable, in no acute respiratory distress, co-operative . ill appearing Vitals reviewed and noted as below Head; Atraumatic, normocephalic ENT: no ulcers no thrush. Tongue is midline. Oropharynx: no rash EYES: Pupils are equal, round and reactive to light accommodation. Eye muscles and extraocular movement intact. Sclera is icteric. Neck; supple no lymphadenopathy, no thyromegaly or bruit. Rt infraclavicular hollowing and Rt sternal head prominence noted. also has lump over mid sternal area Lungs: Improved respiratory rate/effort. Breath sounds bilateral clearer Heart: Normal rate. s1s2 normal. No rub or gallop. Extremities: 1+ edema. No varicose veins. Neurological: Patient is alert, awake and oriented but confused. No focal deficit. Strength bilateral appropriate and equal. Skin: Warm and dry. Normal turgor. No rash. Palpitation: Normal elasticity for age Abdomen: Abdomen is distended with abdominal wall edema. Bowel sounds +. There is no abdominal tenderness, no guarding/rigidity. has hepatomegaly Psych: limited insight and normal affect/mood MSK: no joint tenderness or swelling. Digits and nails normal, no deformity : kidney or bladder not palpable Access: Lt AV access with thrill and bruit. left forearm swelling much better Labs/imaging reviewed. Past medical history, past surgical history, family history, social history, allergy reviewed and noted as below Family Hx: no hx of CKD. Non contributory Objective - Vital Signs/Intake and Output Vital Signs (last 24 hours): Temp Pulse Resp BP Pulse Ox 98.4 F 77 20 134/67 96 08/15/18 08:11 08/15/18 08:11 08/15/18 08:11 08/15/18 08:11 08/15/18 08:11 Intake and Output: 08/15/18 08/15/18 06:59 18:59 Intake Total 720 Balance 720 - Medications Medications: Current Medications Acetaminophen (Tylenol 325mg Tab) 650 mg PO Q6H PRN PRN Reason: Fever >100.4 F Albumin Human (Albumin Human 25% (25 Gm/100 Ml)) 25 gm IV TTS PRN PRN Reason: Other Albuterol/Ipratropium (Duoneb 3 Mg/0.5 Mg (3 Ml) Ud) 3 ml IH Q2H PRN PRN Reason: Shortness of Breath Aspirin (Aspirin Chewable) 81 mg PO DAILY [facility] Last Admin: 08/14/18 10:03 Dose: 81 mg Atorvastatin Calcium (Lipitor) 40 mg PO DIN [facility] Last Admin: 08/14/18 18:44 Dose: 40 mg Heparin Sodium (Porcine) (Heparin) 5,000 units SC Q8 [facility]; Protocol Last Admin: 08/15/18 05:40 Dose: Not Given Losartan Potassium (Cozaar) 25 mg PO QPM [facility] Last Admin: 08/14/18 18:44 Dose: 25 mg Metoprolol Tartrate (Lopressor) 25 mg PO BID [facility] Last Admin: 08/14/18 18:45 Dose: 25 mg Morphine Sulfate (Morphine) 1 mg IVP Q6 PRN PRN Reason: Pain, severe (8-10) Ondansetron HCl (Zofran Inj) 4 mg IVP Q6H PRN PRN Reason: Nausea/Vomiting Sevelamer HCl (Renagel) 800 mg PO TID [facility] Last Admin: 08/14/18 18:45 Dose: 800 mg Tramadol HCl (Ultram) 50 mg PO TID PRN PRN Reason: Pain, severe (8-10) Last Admin: 08/13/18 22:22 Dose: 50 mg Vitamin B Complex/Vit C/Folic Acid (Nephro-Denice) 1 tab PO 0800 [facility] Last Admin: 08/14/18 08:00 Dose: 1 tab - Labs Labs: 08/15/18 07:00 08/15/18 07:00 PT 24.3 SECONDS (9.4-12.5) H 08/07/18 18:49 INR 2.19 08/07/18 18:49 APTT 30.1 Seconds (26.9-38.3) 08/07/18 18:49
--- NOTE | 2018-08-15 11:49 | CP.PCM.PN ---
Subjective - Date & Time of Evaluation Date of Evaluation: 08/15/18 Time of Evaluation: 08:35 - Subjective Subjective: IM Resident progress note for the hospitalist service Patient with no events overnight. Patient with labile emotions and cries easily. States the diarrhea has improved, no watery bowel movement, admits to loose bowel movement last night and this morning. No fever or chills, no nausea, or vomiting, state she's tolerating po. Objective - Vital Signs/Intake and Output Vital Signs (last 24 hours): Temp Pulse Resp BP Pulse Ox 98.4 F 77 20 134/67 96 08/15/18 08:11 08/15/18 08:11 08/15/18 08:11 08/15/18 08:11 08/15/18 08:11 Intake and Output: 08/15/18 08/15/18 06:59 18:59 Intake Total 720 Balance 720 - Medications Medications: Current Medications Acetaminophen (Tylenol 325mg Tab) 650 mg PO Q6H PRN PRN Reason: Fever >100.4 F Albumin Human (Albumin Human 25% (25 Gm/100 Ml)) 25 gm IV TTS PRN PRN Reason: Other Albuterol/Ipratropium (Duoneb 3 Mg/0.5 Mg (3 Ml) Ud) 3 ml IH Q2H PRN PRN Reason: Shortness of Breath Aspirin (Aspirin Chewable) 81 mg PO DAILY [facility] Last Admin: 08/14/18 10:03 Dose: 81 mg Atorvastatin Calcium (Lipitor) 40 mg PO DIN [facility] Last Admin: 08/14/18 18:44 Dose: 40 mg Heparin Sodium (Porcine) (Heparin) 5,000 units SC Q8 [facility]; Protocol Last Admin: 08/15/18 05:40 Dose: Not Given Losartan Potassium (Cozaar) 25 mg PO QPM [facility] Last Admin: 08/14/18 18:44 Dose: 25 mg Metoprolol Tartrate (Lopressor) 25 mg PO BID [facility] Last Admin: 08/14/18 18:45 Dose: 25 mg Morphine Sulfate (Morphine) 1 mg IVP Q6 PRN PRN Reason: Pain, severe (8-10) Ondansetron HCl (Zofran Inj) 4 mg IVP Q6H PRN PRN Reason: Nausea/Vomiting Sevelamer HCl (Renagel) 800 mg PO TID [facility] Last Admin: 08/14/18 18:45 Dose: 800 mg Tramadol HCl (Ultram) 50 mg PO TID PRN PRN Reason: Pain, severe (8-10) Last Admin: 08/13/18 22:22 Dose: 50 mg Vitamin B Complex/Vit C/Folic Acid (Nephro-Denice) 1 tab PO 0800 [facility] Last Admin: 08/14/18 08:00 Dose: 1 tab - Labs Labs: 08/15/18 07:00 08/15/18 07:00 PT 24.3 SECONDS (9.4-12.5) H 08/07/18 18:49 INR 2.19 08/07/18 18:49 APTT 30.1 Seconds (26.9-38.3) 08/07/18 18:49 - Constitutional Appears: No Acute Distress, Cachectic, Chronically Ill - Head Exam Head Exam: ATRAUMATIC, NORMAL INSPECTION, NORMOCEPHALIC - Eye Exam Eye Exam: EOMI, Normal appearance, PERRL. absent: Scleral icterus Pupil Exam: NORMAL ACCOMODATION - ENT Exam ENT Exam: Mucous Membranes Moist - Neck Exam Neck Exam: Normal Inspection - Respiratory Exam Respiratory Exam: Clear to Ausculation Bilateral, NORMAL BREATHING PATTERN. absent: Rales, Rhonchi, Wheezes, Stridor - Cardiovascular Exam Cardiovascular Exam: REGULAR RHYTHM, RRR, +S1, +S2. absent: Tachycardia, Gallop, JVD, Rubs, Murmur - GI/Abdominal Exam GI & Abdominal Exam: Soft, Normal Bowel Sounds. absent: Distended, Firm, Guarding, Rigid, Tenderness - Extremities Exam Extremities Exam: Pedal Edema (+3 pitting edema.). absent: Tenderness Additional comments: Left upper extremity with AVF- currently being accessed with HD. - Back Exam Back Exam: rash noted - Neurological Exam Neurological Exam: Alert, Awake, Oriented x3 - Psychiatric Exam Psychiatric exam: Depressed - Skin Skin Exam: Warm Additional comments: Right upper chest with old scar, intact. Stage 2 decubitus ulcer with clean dressing. Assessment and Plan - Assessment and Plan (Free Text) Assessment: Patient is a 53 y/o male with PMHx of HTN, HLD, ESRD on HD (T/T/S), and right renal mass initially presented with generalized weakness and diarrhea for 3 days. Plan: 1)Right renal mass- Suspicious for renal cell carcinoma on Biopsy - Likely metastatic to the liver and lung on CT - Patient was seen by oncologist and recommending patient may not be a good candidate for therapy at this time - Will continue with morphine prn for pain, and tramadol prn - Zofran prn for n/v - Palliative care was consulted, pending family decisions. - On nasal cannula to ease the work of breathing. 2)Sepsis with hospital acquired pneumonia as the source- - Sepsis resolved - Blood cultures x2 no growth, negative MRSA, and pending sputum cultures. - Completed a course of Merrem and doxy - ID continues to follow patient - Patient has DuoNeb prn if wheezing. 3)Elevated troponin, r/o ACS - Troponin leak was likely from supply demand - Continue with ASA, Lipitor, and Lopressor 25 mg bid. 4)Diarrhea- improving - Stool studies still not collected - Will monitor for now 5)ESRD- Continue with HD on //Tue via Left AVF - Continue with renagel 800 mg tid - On renal vitamin 6)Anemia of chronic disease- likely multifactorial from ESRD and malignancy - Hemoglobin fluctuating between 8-10, in the 9 this AM - s/p 2 units of prbc transfusions during this admission - Will continue to monitor 7)Leukocytosis- likely reactive from the malignancy - Continue to trend up - This AM wbc of 59 - No fever and patient doesnt appear toxic, thus will continue to monitor. 8) Thrombocytopenia- - Platelet count continue to improve - Will monitor 9) HTN - Continue with losartan 25 mg QPM 10) Anasarca- from poor nutrition/malignancy - Will continue nutrition supplements - Patient is getting albumin as per pyrometallurgical engineer 11) Dilated cardiomyopathy with LVEF of 35% - Director Of Teenage [employer] is following, - Patient is on losartan and Lopressor as mentioned above. 12) Transaminitis likely due to met and sepsis on admission - Acute hap panel negative for infection - Negative HIV 13) Left arm swelling due to severe compression of the left innominate vein - s/p angioplasty and stent placement - Extremity U/S negative for DVT 14) Chronic stage 2 decubitus ulcers, present on admission - reposition q2h - Continue with wound care 15) DVT/GI prophylaxis - Heparin sc and protonix 16) Disposition - Pending rehab placement Patient seen, examined and case discussed with Dr. Hood.
--- NOTE | 2018-08-15 12:13 | CP.PCM.PN ---
<Greyson Monterroso - Last Filed: 08/15/18 12:43> Subjective - Date & Time of Evaluation Date of Evaluation: 08/15/18 Time of Evaluation: 08:45 - Subjective Subjective: Infectious disease progress note: Patient seen and examined at bedside. No acute events overnight. States that he is doing well.diarrhea x 2 yesterday. No other complaints. 12 point ROS performed and negative unless stated above. Objective - Vital Signs/Intake and Output Vital Signs (last 24 hours): Temp Pulse Resp BP Pulse Ox 98.4 F 77 20 134/67 96 08/15/18 08:11 08/15/18 08:11 08/15/18 08:11 08/15/18 08:11 08/15/18 08:11 Intake and Output: 08/15/18 08/15/18 06:59 18:59 Intake Total 720 Balance 720 - Medications Medications: Current Medications Acetaminophen (Tylenol 325mg Tab) 650 mg PO Q6H PRN PRN Reason: Fever >100.4 F Albumin Human (Albumin Human 25% (25 Gm/100 Ml)) 25 gm IV TTS PRN PRN Reason: Other Albuterol/Ipratropium (Duoneb 3 Mg/0.5 Mg (3 Ml) Ud) 3 ml IH Q2H PRN PRN Reason: Shortness of Breath Aspirin (Aspirin Chewable) 81 mg PO DAILY [facility] Last Admin: 08/14/18 10:03 Dose: 81 mg Atorvastatin Calcium (Lipitor) 40 mg PO DIN [facility] Last Admin: 08/14/18 18:44 Dose: 40 mg Heparin Sodium (Porcine) (Heparin) 5,000 units SC Q8 [facility]; Protocol Last Admin: 08/15/18 05:40 Dose: Not Given Losartan Potassium (Cozaar) 25 mg PO QPM [facility] Last Admin: 08/14/18 18:44 Dose: 25 mg Metoprolol Tartrate (Lopressor) 25 mg PO BID [facility] Last Admin: 08/14/18 18:45 Dose: 25 mg Morphine Sulfate (Morphine) 1 mg IVP Q6 PRN PRN Reason: Pain, severe (8-10) Ondansetron HCl (Zofran Inj) 4 mg IVP Q6H PRN PRN Reason: Nausea/Vomiting Sevelamer HCl (Renagel) 800 mg PO TID [facility] Last Admin: 08/14/18 18:45 Dose: 800 mg Tramadol HCl (Ultram) 50 mg PO TID PRN PRN Reason: Pain, severe (8-10) Last Admin: 08/13/18 22:22 Dose: 50 mg Vitamin B Complex/Vit C/Folic Acid (Nephro-Denice) 1 tab PO 0800 [facility] Last Admin: 08/14/18 08:00 Dose: 1 tab - Labs Labs: 08/15/18 07:00 08/15/18 07:00 PT 24.3 SECONDS (9.4-12.5) H 08/07/18 18:49 INR 2.19 08/07/18 18:49 APTT 30.1 Seconds (26.9-38.3) 08/07/18 18:49 - Constitutional Appears: No Acute Distress - Eye Exam Eye Exam: EOMI - ENT Exam ENT Exam: Mucous Membranes Moist - Respiratory Exam Respiratory Exam: Clear to Ausculation Bilateral. absent: Rhonchi, Wheezes - Cardiovascular Exam Cardiovascular Exam: REGULAR RHYTHM, +S1, +S2 - GI/Abdominal Exam GI & Abdominal Exam: Soft. absent: Tenderness - Extremities Exam Extremities Exam: absent: Calf Tenderness - Neurological Exam Neurological Exam: Alert, Awake - Skin Skin Exam: Dry, Warm Assessment and Plan - Assessment and Plan (Free Text) Assessment: Sepsis 2/2 HCAP Diarrhea, r/o C diff Right renal mass with metastatic disease to the liver and lung s/p biopsy of renal mass consistent with RCC Elevated troponin Anasarca ESRD on HD Anemia Hypertension LUE edema F/u C diff ordered Completed meropenem, and doxycycline abx therapy Patient at high risk of nosocomial infection Follow-up septic work-up, blood, urine, sputum, MRSA screen Follow-up with cardiology, hematology, and palliative care consultations Continue to monitor for any changes Case and plan to be reviewed and discussed with Dr. Stephens <Stu Stephens - Last Filed: 08/15/18 18:03> Objective - Vital Signs/Intake and Output Vital Signs (last 24 hours): Temp Pulse Resp BP Pulse Ox 98 F 84 20 109/61 94 L 08/15/18 16:20 08/15/18 16:20 08/15/18 16:20 08/15/18 16:20 08/15/18 16:20 Intake and Output: 08/15/18 08/15/18 06:59 18:59 Intake Total 720 Balance 720 - Medications Medications: Current Medications Acetaminophen (Tylenol 325mg Tab) 650 mg PO Q6H PRN PRN Reason: Fever >100.4 F Albumin Human (Albumin Human 25% (25 Gm/100 Ml)) 25 gm IV TTS PRN PRN Reason: Other Albuterol/Ipratropium (Duoneb 3 Mg/0.5 Mg (3 Ml) Ud) 3 ml IH Q2H PRN PRN Reason: Shortness of Breath Aspirin (Aspirin Chewable) 81 mg PO DAILY [facility] Last Admin: 08/15/18 10:00 Dose: Not Given Atorvastatin Calcium (Lipitor) 40 mg PO DIN [facility] Last Admin: 08/14/18 18:44 Dose: 40 mg Heparin Sodium (Porcine) (Heparin) 5,000 units SC Q8 [facility]; Protocol Last Admin: 08/15/18 05:40 Dose: Not Given Losartan Potassium (Cozaar) 25 mg PO QPM [facility] Last Admin: 08/14/18 18:44 Dose: 25 mg Metoprolol Tartrate (Lopressor) 25 mg PO BID [facility] Last Admin: 08/15/18 10:00 Dose: Not Given Morphine Sulfate (Morphine) 1 mg IVP Q6 PRN PRN Reason: Pain, severe (8-10) Ondansetron HCl (Zofran Inj) 4 mg IVP Q6H PRN PRN Reason: Nausea/Vomiting Sevelamer HCl (Renagel) 800 mg PO TID [facility] Last Admin: 08/15/18 15:24 Dose: Not Given Tramadol HCl (Ultram) 50 mg PO TID PRN PRN Reason: Pain, severe (8-10) Last Admin: 08/13/18 22:22 Dose: 50 mg Vitamin B Complex/Vit C/Folic Acid (Nephro-Denice) 1 tab PO 0800 [facility] Last Admin: 08/15/18 08:00 Dose: Not Given - Labs Labs: 08/15/18 07:00 08/15/18 07:00 PT 24.3 SECONDS (9.4-12.5) H 08/07/18 18:49 INR 2.19 08/07/18 18:49 APTT 30.1 Seconds (26.9-38.3) 08/07/18 18:49 Attending/Attestation - Attestation I have personally seen and examined this patient.: Yes I have fully participated in the care of the patient.: Yes I have reviewed all pertinent clinical information, including history, physical exam and plan: Yes
[2018-08-15 16:21] VITALS: TEMP 98; O2SAT 94
[2018-08-15 18:04] VITALS: BP 130/72; PULSE 75
--- NOTE | 2018-08-16 16:02 | CP.PCM.DIS ---
Provider - Provider Date of Admission: 08/07/18 20:10 Attending physician: Anat Irizarry MD Consults: 08/07/18 20:14 Hematology Oncology Consult Routine Comment: Consulting Provider: Odilon Childs Consulting Physician: Odilon Childs Reason for Consult: renal CA 08/07/18 23:07 Consult [Physician Consult] Routine Comment: Consulting Provider: Christian Davis Consulting Physician: Christian Davis Reason for Consult: on HD, T, Th, Sa 08/07/18 23:09 Palliative Care Consult Routine Comment: Consulting Provider: Gabby Gonzalez Physician Instructions: Reason For Exam: cancer, no advanced directive? Physician Consult Routine Comment: Consulting Provider: Stu Stephens Consulting Physician: Stu Stephens Reason for Consult: sepsis, cancer 08/07/18 23:11 Wound Care [Nursing Referral for Wound Care] Routine Comment: Physician Instructions: Reason For Exam: decub ulcer 08/07/18 23:19 Cardiology Consult Routine Comment: Consulting Provider: Abraham Roman Consulting Physician: Abraham Roman Reason for Consult: elevated troponin 08/07/18 23:43 Machine Fur Cleaner [Case Management Referral] Routine Comment: Physician Instructions: Reason For Exam: need help with claude care Reason for Referral: Machine Fur Cleaner Eval 08/08/18 03:04 Nursing Referral for Palliative Care Routine Comment: Physician Instructions: Reason For Exam: admission assessment 08/08/18 03:38 Transition In Care/Readmission Reduction Routine Comment: Physician Instructions: Reason For Exam: admission assessment 08/08/18 03:43 Social Work Referral Routine Comment: admission assessment Physician Instructions: Reason For Exam: aj score 11 08/08/18 07:26 Consult [Physician Consult] Routine Comment: Consulting Provider: Gabby Gonzalez Consulting Physician: Gabby Gonzalez Reason for Consult: renal mass, advance directive 08/08/18 10:49 Physician Consult Routine Comment: Consulting Provider: Saurabh Murray Consulting Physician: Saurabh Murray Reason for Consult: lung biopsy per Dr Childs?, fistulogram LUE swelling? 08/11/18 18:57 Wound Care [Nursing Referral for Wound Care] Routine Comment: Physician Instructions: Reason For Exam: sacral decubitus Time Spent in preparation of Discharge (in minutes): 45 Diagnosis - Discharge Diagnosis (1) Thrombocytopenia Status: Acute (2) Acute diarrhea Status: Resolved (3) Anasarca Status: Chronic (4) Left arm swelling Status: Resolved (5) Anemia Status: Chronic (6) ESRD (end stage renal disease) Status: Chronic (7) Elevated troponin Status: Acute (8) Leukocytosis Status: Acute (9) Renal cell carcinoma Status: Acute (10) Renal mass, right Status: Chronic (11) Sepsis Status: Resolved (12) Weakness Status: Resolved Hospital Course - Lab Results Lab Results: Micro Results 08/13/18 21:00 Sputum Gram Stain - Final 08/13/18 21:00 Sputum Sputum Culture - Final Yeast Species 08/07/18 18:58 Blood Blood Culture - Final NO GROWTH AFTER 5 DAYS 08/07/18 18:30 Blood Blood Culture - Final NO GROWTH AFTER 5 DAYS 08/07/18 18:30 Blood Gram Stain - Final TEST NOT PERFORMED 08/08/18 13:15 Naris MRSA Culture (Admit) - Final MRSA NOT DETECTED Most Recent Lab Values WBC 59.0 10^3/uL (4.5-11.0) H* 08/15/18 07:00 RBC 3.27 10^6/uL (3.5-6.1) L 08/15/18 07:00 Hgb 9.2 g/dL (14.0-18.0) L 08/15/18 07:00 Hct 29.2 % (42.0-52.0) L 08/15/18 07:00 MCV 89.3 fl (80.0-105.0) 08/15/18 07:00 MCH 28.1 pg (25.0-35.0) 08/15/18 07:00 MCHC 31.5 g/dl (31.0-37.0) 08/15/18 07:00 RDW 19.6 % (11.5-14.5) H 08/15/18 07:00 Plt Count 129 10^3/uL (120.0-450.0) 08/15/18 07:00 MPV 10.9 fl (7.0-11.0) 08/15/18 07:00 Neut % (Auto) 91.7 % (50.0-68.0) H 08/15/18 07:00 Lymph % (Auto) 4.2 % (22.0-35.0) L 08/15/18 07:00 [place] % (Auto) 3.8 % (1.0-6.0) 08/15/18 07:00 Eos % (Auto) 0.2 % (1.5-5.0) L 08/15/18 07:00 Baso % (Auto) 0.1 % (0.0-3.0) 08/15/18 07:00 Lymph # (Auto) 2.5 (1.2-3.4) 08/15/18 07:00 [place] # (Auto) 2.2 (0.1-0.6) H 08/15/18 07:00 Eos # (Auto) 0.1 (0.0-0.7) 08/15/18 07:00 Baso # (Auto) 0.06 K/mm3 (0.0-2.0) 08/15/18 07:00 Absolute Neuts (auto) 54.14 (1.4-6.5) H 08/15/18 07:00 Corrected WBC (Man) Cancelled 08/11/18 06:30 Neutrophils % (Manual) 90 % (50.0-70.0) H 08/13/18 10:20 Band Neutrophils % 4 % (0-2) H 08/13/18 10:20 Lymphocytes % (Manual) 5 % (22.0-35.0) L 08/13/18 10:20 Atypical Lymphs % Cancelled 08/11/18 06:30 Monocytes % (Manual) 1 % (1.0-6.0) 08/13/18 10:20 Eosinophils % (Manual) Cancelled 08/11/18 06:30 Basophils % (Manual) Cancelled 08/11/18 06:30 Metamyelocytes % 1 % 08/07/18 18:49 Myelocytes % 1 % 08/07/18 18:49 Promyelocytes % Cancelled 08/11/18 06:30 Nucleated RBC % 2 % 08/07/18 18:49 Hypersegmented Polys Cancelled 08/11/18 06:30 Immature Lymphocytes Cancelled 08/11/18 06:30 Blast Cells Cancelled 08/11/18 06:30 Smudge Cells Cancelled 08/11/18 06:30 Toxic Granulation Cancelled 08/11/18 06:30 Dohle Bodies Cancelled 08/11/18 06:30 Erick Rods Cancelled 08/11/18 06:30 Platelet Evaluation Low (NORMAL) 08/13/18 10:20 Plt Clumps, EDTA Cancelled 08/11/18 06:30 Large Platelets Cancelled 08/11/18 06:30 Giant Platelets Cancelled 08/11/18 06:30 Polychromasia Cancelled 08/11/18 06:30 Hypochromasia 1+ 08/13/18 10:20 Hyperchromasia Cancelled 08/11/18 06:30 Poikilocytosis (manual Slight 08/13/18 10:20 Basophilic Stippling Cancelled 08/11/18 06:30 Anisocytosis (manual) 1+ 08/13/18 10:20 Microcytosis (manual) Cancelled 08/11/18 06:30 Macrocytosis (manual) Cancelled 08/11/18 06:30 Spherocytes Cancelled 08/11/18 06:30 Sickle Cells Cancelled 08/11/18 06:30 Target Cells Slight 08/07/18 18:49 Tear Drop Cells Slight 08/13/18 10:20 Ovalocytes Slight 08/13/18 10:20 Stomatocytes Cancelled 08/11/18 06:30 Helmet Cells Cancelled 08/11/18 06:30 [place] Rings Cancelled 08/11/18 06:30 [place] Cells Cancelled 08/11/18 06:30 Acanthocytes (Spur) Cancelled 08/11/18 06:30 Rouleaux Cancelled 08/11/18 06:30 Schistocytes Cancelled 08/11/18 06:30 PT 24.3 SECONDS (9.4-12.5) H 08/07/18 18:49 INR 2.19 08/07/18 18:49 APTT 30.1 Seconds (26.9-38.3) 08/07/18 18:49 pO2 183 mm/Hg (30-55) H 08/07/18 21:30 VBG pH 7.49 (7.32-7.43) H 08/07/18 21:30 VBG pCO2 33.0 (40-60) L 08/07/18 21:30 VBG HCO3 25.1 mmol/l (21-28) 08/07/18 21:30 VBG Total CO2 26.1 mmol.L (22-28) 08/07/18 21:30 VBG O2 Sat (Calc) 100.6 % (40-65) H 08/07/18 21:30 VBG Base Excess 2.2 mmol/L (0.0-2.0) H 08/07/18 21:30 VBG Potassium 4.8 mmol/L (3.6-5.2) 08/07/18 21:30 Sodium 133.0 mmol/L (132-148) 08/07/18 21:30 Chloride 96.0 mmol/L (98-107) L 08/07/18 21:30 Glucose 88 mg/dl (75-110) 08/07/18 21:30 Lactate 4.0 mmol/L (0.7-2.1) H* 08/07/18 21:30 FiO2 21.0 % 08/07/18 21:30 Crit Value Called To Elieser murray 08/07/18 21:30 Crit Value Called By Atc 08/07/18 21:30 Blood Gas Notified Time 214408/07/18 21:30 Sodium 138 mmol/L (132-148) 08/15/18 07:00 Potassium 5.0 mmol/L (3.6-5.0) 08/15/18 07:00 Chloride 97 mmol/L (98-107) L 08/15/18 07:00 Carbon Dioxide 21 mmol/L (21-33) 08/15/18 07:00 Anion Gap 24 (10-20) H 08/15/18 07:00 BUN 91 mg/dL (7-21) H 08/15/18 07:00 Creatinine 7.0 mg/dl (0.8-1.5) H 08/15/18 07:00 Est GFR ( Amer) 10 08/15/18 07:00 Est GFR (Non-Af Amer) 8 08/15/18 07:00 Random Glucose 86 mg/dL (70-110) 08/15/18 07:00 Calcium 9.4 mg/dL (8.4-10.5) 08/15/18 07:00 Phosphorus 7.7 mg/dL (2.5-4.5) H 08/15/18 07:00 Magnesium 2.1 mg/dL (1.7-2.2) 08/15/18 07:00 Total Bilirubin 2.8 mg/dL (0.2-1.3) H 08/15/18 07:00 AST 82 U/L (17-59) H D 08/15/18 07:00 ALT 37 U/L (7-56) 08/15/18 07:00 Alkaline Phosphatase 502 U/L (38-126) H 08/15/18 07:00 Lactate Dehydrogenase 79279 U/L (333-699) H 08/07/18 18:49 Total Creatine Kinase 28 U/L (35-230) L 08/07/18 18:49 Troponin I 0.23 ng/mL H* 08/08/18 04:00 NT-Pro-B Natriuret Pep 57508 pg/mL (0-450) H 08/07/18 18:49 Total Protein 6.3 g/dL (5.8-8.3) 08/15/18 07:00 Albumin 2.8 g/dL (3.0-4.8) L 08/15/18 07:00 Globulin 3.5 gm/dL 08/15/18 07:00 Albumin/Globulin Ratio 0.8 (1.1-1.8) L 08/15/18 07:00 Triglycerides 193 mg/dL (35-160) H 08/08/18 04:00 Cholesterol 108 mg/dL (130-200) L 08/08/18 04:00 LDL Cholesterol Direct 39 mg/dL (0-129) 08/08/18 04:00 HDL Cholesterol 13 mg/dL (29-60) L 08/08/18 04:00 Procalcitonin 184.04 NG/ML (0.19-0.49) H 08/08/18 13:10 TSH 3rd Generation 3.53 mIU/mL (0.46-4.68) 08/09/18 06:40 Venous Blood Potassium 4.8 mmol/L (3.6-5.2) 08/07/18 21:30 Hep Bs Antibody Positive (NEGATIVE) 08/10/18 14:40 Hep B Core Total Ab Non reactive (Non Reactive) 08/10/18 14:40 Hep B Core IgM Ab Negative (NEGATIVE) 08/10/18 14:40 HIV 1&2 Ag/Ab, 4th Gen Nonreactive (Nonreactive) 08/08/18 13:10 Blood Type O POSITIVE 08/07/18 18:49 Blood Type Confirm O POSITIVE 08/07/18 19:17 Antibody Screen Negative 08/07/18 18:49 Crossmatch See Detail 08/07/18 18:49 BBK History Checked No verified bt 08/07/18 18:49 - Hospital Course Hospital Course: Patient is a 53 y/o male with PMHx of HTN, HLD, ESRD on HD (T/T/S), chronic stage 2 decubitus ulcers and right renal mass initially presented with generalized weakness and diarrhea for 3 days. Patient was found to be septic due to hospital acquired pneumonia. Patient completed a course of merrem and doxy per ID, blood cultures were negative x2. Patient also underwent CT guided biopsy of the renal mass, pathology report was suspicious for renal cell carcinoma. CT revealed possible metastatic lesions in the liver and lung. Oncologist was consulted and recommended patient may not be a good candidate for therapy at this time. Patient received morphine and tramadol prn for pain. Palliative care was consulted, however patient's family was not able to decide on palliative care, and advance directives. In addition, troponin was elevated, but eventually trended down. There was no acute ST/T wave elevations on EKG. Manager Access was consulted and recommended cardiac echo. Cardiac echo revealed dilated cardiomyopathy with LVEF of 35%. Patient was on losaran, Lopressor, ASA, and Lipitor. Stool studies were not collected for the diarrhea, however diarrhea eventually improved. Patient also has anemia of chronic disease which fluctuated throughout the admission, received 2 units of prbc total. Furthermore, patient had severe leukocytosis with WBC upward of 50s which was deemed to be likely a reaction from the malignancy. Patient also had transaminitis, however the hep panel was negative and no acute cholecystitis or gallbladder wall thickening on CT. 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 Left extremity U/S revealed no DVT. Patient received IV albumin and supplementations for being malnourished and anasarctic. Patient was discharged to [facility] for physical therapy. - Date & Time of H&P Date of H&P: 08/08/18 Time of H&P: 00:22 Discharge Exam - Head Exam Head Exam: ATRAUMATIC, NORMAL INSPECTION, NORMOCEPHALIC Additional comments: Please see progress note from 08/15/18 for complete physical exam. Discharge Plan - Follow Up Plan Condition: GUARDED Disposition: REHAB FACILITY/REHAB UNIT Instructions: Kidney Cancer, End Stage Kidney Disease (DC), Sepsis (DC) Additional Instructions: Continue care at [facility] to get stronger. Please continue your hemodialysis sessions on Tuesday, and Tuesday per your sustainability coordinator. Follow up with your sustainability coordinator within 3-5 days. Continue taking your medications as prescribed. Follow up with your primary care doctor and oncologist Amadeo within 3-5 days. Follow up with him regarding further management of your kidney cancer. Please follow up with sheet metal apprentice, Dr. Roman, within one week of discharge. Return to the emergency room for any new or worsening of symptoms. Referrals: Barry Hall MD [Staff Provider] - Abraham Roman MD [Staff Provider] - Odilon Childs MD [Family Provider] -
== END 2018-08-15 19:26 | disposition home or self-care (01) | DRG 853 ==
LOC: ED 17:24 → ERH 20:10 → 2RNO 22:13 → 3RNO 08-11 19:04 → UNDODISIN 08-15 19:07
PROVIDERS: ADMIT Internal Medicine; ATTEND Internal Medicine
PROC: 30233N1 Transfusion of Nonautologous Red Blood Cells into Peripheral Vein, Percutaneous Approach (ICD-10-PCS; 2018-08-07)
PROC: 5A1D70Z Performance of Urinary Filtration, Intermittent, Less than 6 Hours Per Day (ICD-10-PCS; 2018-08-08)
PROC: 0TB03ZX Excision of Right Kidney, Percutaneous Approach, Diagnostic (ICD-10-PCS; 2018-08-09)
PROC: 5A1D70Z Performance of Urinary Filtration, Intermittent, Less than 6 Hours Per Day (ICD-10-PCS; 2018-08-09)
PROC: 5A1D70Z Performance of Urinary Filtration, Intermittent, Less than 6 Hours Per Day (ICD-10-PCS; 2018-08-10)
PROC: 05743DZ Dilation of Left Innominate Vein with Intraluminal Device, Percutaneous Approach (ICD-10-PCS; principal; 2018-08-11)
PROC: B51W1ZZ Fluoroscopy of Dialysis Shunt/Fistula using Low Osmolar Contrast (ICD-10-PCS; 2018-08-11)
PROC: 5A1D70Z Performance of Urinary Filtration, Intermittent, Less than 6 Hours Per Day (ICD-10-PCS; 2018-08-12)
PROC: 5A1D70Z Performance of Urinary Filtration, Intermittent, Less than 6 Hours Per Day (ICD-10-PCS; 2018-08-15)
DX: A41.9 Sepsis, unspecified organism (principal); N18.6 End stage renal disease; J18.9 Pneumonia, unspecified organism; C64.1 Malignant neoplasm of right kidney, except renal pelvis; C78.00 Secondary malignant neoplasm of unspecified lung; C78.7 Secondary malignant neoplasm of liver and intrahepatic bile duct; N25.81 Secondary hyperparathyroidism of renal origin; E87.2 Acidosis; R18.0 Malignant ascites; I31.3 Pericardial effusion (noninflammatory); I13.2 Hypertensive heart and chronic kidney disease with heart failure and with stage 5 chronic kidney disease, or end stage renal disease; I50.22 Chronic systolic (congestive) heart failure; I42.0 Dilated cardiomyopathy; I87.1 Compression of vein; R64 Cachexia; L89.152 Pressure ulcer of sacral region, stage 2; E87.70 Fluid overload, unspecified; I27.20 Pulmonary hypertension, unspecified; D69.6 Thrombocytopenia, unspecified; E83.39 Other disorders of phosphorus metabolism; D63.1 Anemia in chronic kidney disease; D63.8 Anemia in other chronic diseases classified elsewhere; R19.7 Diarrhea, unspecified; R74.8 Abnormal levels of other serum enzymes; E78.5 Hyperlipidemia, unspecified; Z99.2 Dependence on renal dialysis; Z91.19 Patient's noncompliance with other medical treatment and regimen; Z68.26 Body mass index [BMI] 26.0-26.9, adult

== ENCOUNTER 2018-08-18 17:13 | Inpatient (IN) | payer MEDICARE, OTHER ==
[2018-08-18 17:14] VITALS: BMI 26.4
--- NOTE | 2018-08-18 18:00 | ED PDOC ---
Arrival/HPI - General Chief Complaint: Abdominal Pain Time Seen by Provider: 08/18/18 17:18 Historian: Patient - History of Present Illness Narrative History of Present Illness (Text): 08/18/18 18:01 A 53 year old male, whose past medical history includes renal cancer and end stage renal disease on hemodialysis (T, Th , Sat), presents to the ED for abdominal pain and elevated WBC. Patient reports associated productive cough th at he has had for a while without improvement. Patient denies any fevers, chills, headache, dizziness, chest pain, shortness of breath, dyspnea on exertion, cough, nausea, vomiting, diarrhea, back pain, neck pain, urinary/bowel changes, or any other complaint. Symptom Onset: Gradual Symptom Course: Unchanged Activities at Onset: Light Context: Home Past Medical History - Provider Review Nursing Documentation Reviewed: Yes - Infectious Disease Hx of Infectious Diseases: None - Cardiac Hx Hypertension: Yes - Neurological Hx Dizziness: Yes - Renal Hx Dialysis: Yes ([facility]) Date of Last Dialysis Treatment: 08/05/18 - Hematological/Oncological Hx Anemia: Yes Hx Blood Transfusions: Yes (in [facility] [place]) Hx Cancer: Yes - Musculoskeletal/Rheumatological Hx Back Pain: Yes Hx Falls: No Hx Unsteady Gait: Yes - Genitourinary/Gynecological Hx Incontinence: Yes - Psychiatric Hx Anxiety: Yes Hx Depression: Yes Hx Substance Use: No - Surgical History Other/Comment: Biopsy. BERE AV shunt - Anesthesia Hx Anesthesia: Yes Hx Anesthesia Reactions: No Hx Malignant Hyperthermia: No Family/Social History - Physician Review Nursing Documentation Reviewed: Yes Family/Social History: No Known Family HX Smoking Status: Never Smoked Hx Alcohol Use: No Hx Substance Use: No Allergies/Home Meds Allergies/Adverse Reactions: Allergies No Known Allergies Allergy (Verified 08/18/18 17:22) Review of Systems - Physician Review All systems were reviewed & negative as marked: Yes - Review of Systems Respiratory: Cough. absent: SOB Cardiovascular: absent: Chest Pain Gastrointestinal: Abdominal Pain Physical Exam Vital Signs Reviewed: Yes Vital Signs Temp Pulse Resp BP Pulse Ox 08/18/18 17:14 98.3 F 79 18 143/63 95 Temperature: Afebrile Blood Pressure: Normal Pulse: Regular Respiratory Rate: Normal Appearance: Positive for: Well-Appearing, Non-Toxic, Comfortable Pain Distress: Mild Mental Status: Positive for: Alert and Oriented X 3 - Systems Exam Head: Present: Atraumatic, Normocephalic Pupils: Present: PERRL Extroacular Muscles: Present: EOMI Conjunctiva: Present: Normal Respiratory/Chest: Present: Clear to Auscultation, Decreased Breath Sounds (on right) Cardiovascular: Present: Regular Rate and Rhythm, Normal S1, S2. No: Murmurs Lower Extremity: Present: Other (Bilateral pitting edema) Psychiatric: Present: Alert, Oriented x 3, Other (Awake) Medical Decision Making ED Course and Treatment: 08/18/18 18:08 Impression: A 53 year old male who presents to the ED for abdominal pain. Patient has abnormal labs and end stage renal disease with renal cancer. Plan: -- Labs -- VBG -- Blood culture -- Urine culture -- Chest X-Ray -- Urinalysis -- Reassess and disposition Prior Visits: Notes and results from previous visits were reviewed. Patient was last seen in the emergency department on 08/07/18. Progress Notes: 08/18/18 18:[address] Leavitt, who requests blood work, then will decide if patient needs antibiotics. Sign out to Dr Nicolas pending labs, icu consult and admission. - RAD Interpretation Radiology Orders: 08/18/18 17:57 CHEST PORTABLE [RAD] Stat - Scribe Statement The provider has reviewed the documentation as recorded by the Scribe Michi Jara Provider Scribe Attestation: All medical record entries made by the Scribe were at my direction and personally dictated by me. I have reviewed the chart and agree that the record accurately reflects my personal performance of the history, physical exam, medical decision making, and the department course for this patient. I have also personally directed, reviewed, and agree with the discharge instructions and disposition. Disposition/Present on Arrival - Present on Arrival Any Indicators Present on Arrival: No History of DVT/PE: No History of Uncontrolled Diabetes: No Urinary Catheter: No History of Decub. Ulcer: No History Surgical Site Infection Following: None - Disposition Have Diagnosis and Disposition been Completed?: Yes Diagnosis: Sepsis Disposition: HOSPITALIZED Disposition Time: 18:56 Patient Plan: Admission Condition: GUARDED Discharge Instructions (ExitCare): Sepsis (ED) Forms: [employer] (Lao)
[2018-08-18 18:38] LABS: VENOUS BLOOD GAS BASE EXCESS 3.9 mmol/L (0.0-2.0); VENOUS BLOOD GAS PO2 47 mm/Hg (30-55); VENOUS BLOOD PH 7.44 (7.32-7.43)
[2018-08-18] MEDS ORDERED: Vancomycin 1gm in NS 250ml 1 GM/250 ML BAG IVPB STA (18:38)
[2018-08-18] MEDS ORDERED: Cefepime IV 2 gm in NS 2 GM/100 ML BAG IVPB STA (18:40)
[2018-08-18] MEDS ORDERED: Sodium Chloride 0.9% 1,000 ML IV STA (18:44)
[2018-08-18 18:51] LABS: BASO # 0.09 K/mm3 (0.0-2.0); BASO % 0.2 % (0.0-3.0); EOS # 0.1 (0.0-0.7); EOS % 0.2 % (1.5-5.0); HEMOGLOBIN 8.8 g/dL (14.0-18.0); LYMPH # 2.3 (1.2-3.4); LYMPH % 4.4 % (22.0-35.0); MEAN CELL VOLUME 91.1 fl (80.0-105.0); MEAN CORPUSCULAR HGB CONC 31.9 g/dl (31.0-37.0); MONO # 2.2 (0.1-0.6); MONO % 4.3 % (1.0-6.0); PLATELET COUNT 104 10^3/uL (120.0-450.0); RBC 3.03 10^6/uL (3.5-6.1); RED CELL DISTRIBUTION WIDTH 21.2 % (11.5-14.5)
[2018-08-18 18:57] LABS: WHITE BLOOD COUNT 51.8 10^3/uL (4.5-11.0)
[2018-08-18 19:24] LABS: BAND 4 % (0-2); EOSINOPHIL 1 % (0.0-3.0); LYMPHOCYTE 9 % (22.0-35.0); METAMYELOCYTE 2 %; MONOCYTE 5 % (1.0-6.0); NEUTROPHIL 79 % (50.0-70.0)
[2018-08-18 19:26] LABS: ANISOCYTOSIS SLIGHT; PLATELET ESTIMATE LOW (NORMAL); TARGET CELLS SLIGHT
[2018-08-18 19:35] LABS: ALB/GLOB RATIO 0.8 (1.1-1.8); ALBUMIN 2.8 g/dL (3.0-4.8); CALCIUM 9.1 mg/dL (8.4-10.5)
[2018-08-18] MEDS ORDERED: Albuterol-Ipratrop 3 mg / 0.5 (3 ml) UD IH PRN (19:41)
--- NOTE | 2018-08-18 19:53 | CP.PCM.HP ---
Past Patient History - Infectious Disease Hx of Infectious Diseases: None - Past Social History Smoking Status: Never Smoked - CARDIAC Hx Hypertension: Yes - NEUROLOGICAL Hx Dizziness: Yes - RENAL Hx Dialysis: Yes ([facility]) Date of Last Dialysis Treatment: 08/05/18 - HEMATOLOGICAL/ONCOLOGICAL Hx Anemia: Yes Hx Blood Transfusions: Yes (in [facility] [place]) Hx Cancer: Yes - MUSCULOSKELETAL/RHEUMATOLOGICAL Hx Back Pain: Yes Hx Falls: No Hx Unsteady Gait: Yes - GENITOURINARY/GYNECOLOGICAL Hx Incontinence: Yes - PSYCHIATRIC Hx Anxiety: Yes Hx Depression: Yes Hx Substance Use: No - SURGICAL HISTORY Other/Comment: Biopsy. BERE AV shunt - ANESTHESIA Hx Anesthesia: Yes Hx Anesthesia Reactions: No Hx Malignant Hyperthermia: No Meds Allergies/Adverse Reactions: Allergies Allergy/AdvReac Type Severity Reaction Status Date / Time No Known Allergies Allergy Verified 08/18/18 17:22 Results - Vital Signs Recent Vital Signs: Last Vital Signs Temp 98.3 F 08/18/18 19:09 Pulse 85 08/18/18 19:26 Resp 18 08/18/18 19:26 BP 147/70 08/18/18 19:26 Pulse Ox 97 08/18/18 19:26 - Labs Result Diagrams: 08/18/18 18:34 08/18/18 19:10 Labs: Laboratory Results - last 24 hr 08/18/18 08/18/18 08/18/18 18:30 18:34 19:10 WBC 51.8 H* RBC 3.03 L Hgb 8.8 L Hct 27.6 L MCV 91.1 MCH 29.0 MCHC 31.9 RDW 21.2 H Plt Count 104 L MPV 10.0 Neut % (Auto) 90.9 H Lymph % (Auto) 4.4 L [place] % (Auto) 4.3 Eos % (Auto) 0.2 L Baso % (Auto) 0.2 Lymph # (Auto) 2.3 [place] # (Auto) 2.2 H Eos # (Auto) 0.1 Baso # (Auto) 0.09 Absolute Neuts (auto) 47.14 H Neutrophils % (Manual) 79 H Band Neutrophils % 4 H Lymphocytes % (Manual) 9 L Monocytes % (Manual) 5 Eosinophils % (Manual) 1 Metamyelocytes % 2 Platelet Evaluation Low Anisocytosis (manual) Slight Target Cells Slight pO2 47 VBG pH 7.44 H VBG pCO2 42.0 VBG HCO3 28.5 H VBG Total CO2 29.8 H VBG O2 Sat (Calc) 80.2 H VBG Base Excess 3.9 H VBG Potassium 4.6 Sodium 134.0 137 Chloride 96.0 L 93 L Glucose 76 Lactate 6.0 H* FiO2 21.0 Crit Value Called To Dr maria Cribrett Value Called By Michelle Blood Gas Notified Time 1836 Potassium 4.9 Carbon Dioxide 26 Anion Gap 23 H BUN 58 H Random Glucose 70 Calcium 9.1 Total Bilirubin 2.6 H AST 181 H D ALT 43 Alkaline Phosphatase 416 H Total Protein 6.3 Albumin 2.8 L Globulin 3.5 Albumin/Globulin Ratio 0.8 L Venous Blood Potassium 4.6
--- NOTE | 2018-08-18 20:29 | CP.PCM.CON ---
<Lexi Lazo - Last Filed: 08/18/18 20:20> History of Present Illness - History of Present Illness History of Present Illness: ICU Consult note for Stephen Arana PGY3 This is a 53yo AA male with past medical history of HTN, HLD, ESRD on HD (, , ), R Renal cell carcinoma with mets to lung and liver w/ persistent pleural effusion, dilated cardiomyopathy w/ EF of 35%, diffuse anasarca who was admitted for weakness and poor appetite. He was recently d/c from [facility] to [facility] 2 days ago at [facility]. There, the patient was not feeling well and had poor appetite. While at [facility], patient had renal biopsy which showed renal clear cell carcinoma. Patient's oncologist, Dr. Childs, reports that patient is poor candidate for treatment at this time due to poor functional status. He also had a fistulogram for L AV fistula with stent placement. Patient was also treated for HCAP by infectious disease, but lung effusion thought to be metastatic and antibiotics were discontinued. In ED, patient's vitals were stable. WBC and lactate elevated which is around baseline and is due to metastatic cancer as per oncology at last visit. Hgb around baseline and is comfortable on room air. Patient denies chest pain, shortness of breath, nausea/vomiting/diarrhea, fever/chills, numbness/tingling, dysuria or hematuria. Patient just reports poor appetite and generalized weakness with pain in his back. Past medical history: HTN, HLD, ESRD on HD (, , ), R Renal cell carcinoma with mets to lung and liver w/ persistent pleural effusion, stage II decubitus ulcer, dilated cardiomyopathy w/ EF of 35%, diffuse anasarca Past surgical history: L AV fistula, R Renal mass biopsy Home meds: Reviewed as per previous d/c summary Allergies: NKDA Social history: Denies EtOH, drug or tobacco use. 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 Childs Review of Systems - Review of Systems All systems: reviewed and no additional remarkable complaints except Review of Systems: 12 point ROS reviewed and otherwise negative Past Patient History - Infectious Disease Hx of Infectious Diseases: None - Past Social History Smoking Status: Never Smoked - CARDIAC Hx Hypertension: Yes - NEUROLOGICAL Hx Dizziness: Yes - RENAL Hx Dialysis: Yes ([facility]) Date of Last Dialysis Treatment: 08/05/18 - HEMATOLOGICAL/ONCOLOGICAL Hx Anemia: Yes Hx Blood Transfusions: Yes (in [facility]) Hx Cancer: Yes - MUSCULOSKELETAL/RHEUMATOLOGICAL Hx Back Pain: Yes Hx Falls: No Hx Unsteady Gait: Yes - GENITOURINARY/GYNECOLOGICAL Hx Incontinence: Yes - PSYCHIATRIC Hx Anxiety: Yes Hx Depression: Yes Hx Substance Use: No - SURGICAL HISTORY Other/Comment: Biopsy. BERE AV shunt - ANESTHESIA Hx Anesthesia: Yes Hx Anesthesia Reactions: No Hx Malignant Hyperthermia: No Meds Allergies/Adverse Reactions: Allergies Allergy/AdvReac Type Severity Reaction Status Date / Time No Known Allergies Allergy Verified 08/18/18 17:22 - Medications Medications: Current Medications Acetaminophen (Tylenol 325mg Tab) 650 mg PO Q6H PRN PRN Reason: Fever >100.4 F Albuterol/Ipratropium (Duoneb 3 Mg/0.5 Mg (3 Ml) Ud) 3 ml IH Q2H PRN PRN Reason: Shortness of Breath Aspirin (Aspirin Chewable) 81 mg PO DAILY [facility] Atorvastatin Calcium (Lipitor) 40 mg PO DIN [facility] Heparin Sodium (Porcine) (Heparin) 5,000 units SC Q8 [facility]; Protocol Losartan Potassium (Cozaar) 25 mg PO QPM [facility] Metoprolol Tartrate (Lopressor) 25 mg PO BID [facility] Morphine Sulfate (Morphine) 1 mg IVP Q6H PRN PRN Reason: Pain, severe (8-10) Sevelamer HCl (Renagel) 800 mg PO TID [facility] Tramadol HCl (Ultram) 50 mg PO TID PRN PRN Reason: Pain, severe (8-10) Vitamin B Complex/Vit C/Folic Acid (Nephro-Denice) 1 tab PO 0800 [facility] Physical Exam - Constitutional Appears: Chronically Ill - Head Exam Head Exam: ATRAUMATIC, NORMAL INSPECTION, NORMOCEPHALIC - Eye Exam Eye Exam: Normal appearance, PERRL Pupil Exam: NORMAL ACCOMODATION - ENT Exam ENT Exam: Mucous Membranes Dry - Respiratory Exam Respiratory Exam: Decreased Breath Sounds (on R base ), Rales (on L base ), Wheezes (on R ), NORMAL BREATHING PATTERN. absent: Accessory Muscle Use, Rhonchi, Respiratory Distress, Stridor - Cardiovascular Exam Cardiovascular Exam: REGULAR RHYTHM, +S1, +S2. absent: Gallop, Rubs, Systolic Murmur - GI/Abdominal Exam GI & Abdominal Exam: Normal Bowel Sounds, Soft. absent: Mass, Rebound, Rigid, Tenderness - Extremities Exam Extremities exam: Positive for: pedal edema (+ 2 bilaterally ) Additional comments: L UE edema (but improved from last week) - Neurological Exam Neurological exam: Alert, CN II-XII Intact, Oriented x3 - Psychiatric Exam Psychiatric exam: Normal Affect, Normal Mood - Skin Skin Exam: Dry, Intact, Warm Results - Vital Signs Recent Vital Signs: Last Vital Signs Temp 98.3 F 08/18/18 19:09 Pulse 82 08/18/18 19:52 Resp 13 08/18/18 19:52 BP 154/66 H 08/18/18 19:52 Pulse Ox 96 08/18/18 19:52 - Labs Result Diagrams: 08/18/18 18:34 08/18/18 19:10 Labs: Laboratory Results - last 24 hr 08/18/18 08/18/18 08/18/18 18:30 18:34 19:10 WBC 51.8 H* RBC 3.03 L Hgb 8.8 L Hct 27.6 L MCV 91.1 MCH 29.0 MCHC 31.9 RDW 21.2 H Plt Count 104 L MPV 10.0 Neut % (Auto) 90.9 H Lymph % (Auto) 4.4 L Cameron % (Auto) 4.3 Eos % (Auto) 0.2 L Baso % (Auto) 0.2 Lymph # (Auto) 2.3 Cameron # (Auto) 2.2 H Eos # (Auto) 0.1 Baso # (Auto) 0.09 Absolute Neuts (auto) 47.14 H Neutrophils % (Manual) 79 H Band Neutrophils % 4 H Lymphocytes % (Manual) 9 L Monocytes % (Manual) 5 Eosinophils % (Manual) 1 Metamyelocytes % 2 Platelet Evaluation Low Anisocytosis (manual) Slight Target Cells Slight pO2 47 VBG pH 7.44 H VBG pCO2 42.0 VBG HCO3 28.5 H VBG Total CO2 29.8 H VBG O2 Sat (Calc) 80.2 H VBG Base Excess 3.9 H VBG Potassium 4.6 Sodium 134.0 137 Chloride 96.0 L 93 L Glucose 76 Lactate 6.0 H* FiO2 21.0 Crit Value Called To Dr candace Crit Value Called By Michelle Blood Gas Notified Time 1835 Potassium 4.9 Carbon Dioxide 26 Anion Gap 23 H BUN 58 H Creatinine 3.9 H Est GFR ( Amer) 20 Est GFR (Non-Af Amer) 16 Random Glucose 70 Calcium 9.1 Total Bilirubin 2.6 H AST 181 H D ALT 43 Alkaline Phosphatase 416 H Total Protein 6.3 Albumin 2.8 L Globulin 3.5 Albumin/Globulin Ratio 0.8 L Venous Blood Potassium 4.6 Assessment & Plan - Assessment and Plan (Free Text) Assessment: This is a 53yo AA male with past medical history of HTN, HLD, ESRD on HD (T, T, Sa), R Renal cell carcinoma with mets to lung and liver w/ persistent pleural effusion, dilated cardiomyopathy w/ EF of 35%, diffuse anasarca who was admitted for weakness and poor appetite. Patient will be admitted to Dr. Leavitt's service at this time. He does not require ICU at this time. Vitals are stable. Labs at baseline from 2 days ago. Will continue home medication and consult nephrology to continue hemodialysis. ID consulted for code sepsis, but most likely not sepsis. Patient has persistent pleural effusion from lung metastasis. WBC at baseline and lactate will continue to be elevate due to active cancer. Given antibiotics in ED. Will await ID eval for further antibiotics and septic workup is pending. If patient starts to decline, please re-consult ICU as needed. Case seen, discussed and reviewed with Dr. Nguyen Lazo PGY3 <Josi Cedillo - Last Filed: 08/19/18 01:41> Meds - Medications Medications: Current Medications Acetaminophen (Tylenol 325mg Tab) 650 mg PO Q6H PRN PRN Reason: Fever >100.4 F Albuterol/Ipratropium (Duoneb 3 Mg/0.5 Mg (3 Ml) Ud) 3 ml IH Q2H PRN PRN Reason: Shortness of Breath Aspirin (Aspirin Chewable) 81 mg PO DAILY [facility] Atorvastatin Calcium (Lipitor) 40 mg PO DIN [facility] Heparin Sodium (Porcine) (Heparin) 5,000 units SC Q8 [facility]; Protocol Losartan Potassium (Cozaar) 25 mg PO QPM [facility] Metoprolol Tartrate (Lopressor) 25 mg PO BID [facility] Morphine Sulfate (Morphine) 1 mg IVP Q6H PRN PRN Reason: Pain, severe (8-10) Sevelamer HCl (Renagel) 800 mg PO TID [facility] Tramadol HCl (Ultram) 50 mg PO TID PRN PRN Reason: Pain, severe (8-10) Vitamin B Complex/Vit C/Folic Acid (Nephro-Denice) 1 tab PO 0800 [facility] Results - Vital Signs Recent Vital Signs: Last Vital Signs Temp 98.3 F 08/18/18 19:09 Pulse 87 08/18/18 23:33 Resp 14 08/18/18 23:33 BP 138/88 08/18/18 23:33 Pulse Ox 100 08/18/18 23:33 - Labs Result Diagrams: 08/18/18 18:34 08/18/18 19:10 Labs: Laboratory Results - last 24 hr 08/18/18 08/18/18 08/18/18 18:30 18:34 19:10 WBC 51.8 H* RBC 3.03 L Hgb 8.8 L Hct 27.6 L MCV 91.1 MCH 29.0 MCHC 31.9 RDW 21.2 H Plt Count 104 L MPV 10.0 Neut % (Auto) 90.9 H Lymph % (Auto) 4.4 L Cameron % (Auto) 4.3 Eos % (Auto) 0.2 L Baso % (Auto) 0.2 Lymph # (Auto) 2.3 Cameron # (Auto) 2.2 H Eos # (Auto) 0.1 Baso # (Auto) 0.09 Absolute Neuts (auto) 47.14 H Neutrophils % (Manual) 79 H Band Neutrophils % 4 H Lymphocytes % (Manual) 9 L Monocytes % (Manual) 5 Eosinophils % (Manual) 1 Metamyelocytes % 2 Platelet Evaluation Low Anisocytosis (manual) Slight Target Cells Slight pO2 47 VBG pH 7.44 H VBG pCO2 42.0 VBG HCO3 28.5 H VBG Total CO2 29.8 H VBG O2 Sat (Calc) 80.2 H VBG Base Excess 3.9 H VBG Potassium 4.6 Sodium 134.0 137 Chloride 96.0 L 93 L Glucose 76 Lactate 6.0 H* FiO2 21.0 Crit Value Called To Dr maria Crit Value Called By Michelle Blood Gas Notified Time 7470 Potassium 4.9 Carbon Dioxide 26 Anion Gap 23 H BUN 58 H Creatinine 3.9 H Est GFR ( Amer) 20 Est GFR (Non-Af Amer) 16 Random Glucose 70 Calcium 9.1 Total Bilirubin 2.6 H AST 181 H D ALT 43 Alkaline Phosphatase 416 H Total Protein 6.3 Albumin 2.8 L Globulin 3.5 Albumin/Globulin Ratio 0.8 L Venous Blood Potassium 4.6 08/18/18 21:49 WBC RBC Hgb Hct MCV MCH MCHC RDW Plt Count MPV Neut % (Auto) Lymph % (Auto) Cameron % (Auto) Eos % (Auto) Baso % (Auto) Lymph # (Auto) Cameron # (Auto) Eos # (Auto) Baso # (Auto) Absolute Neuts (auto) Neutrophils % (Manual) Band Neutrophils % Lymphocytes % (Manual) Monocytes % (Manual) Eosinophils % (Manual) Metamyelocytes % Platelet Evaluation Anisocytosis (manual) Target Cells pO2 TEST NOT PERFORMED VBG pH 7.42 VBG pCO2 45.0 VBG HCO3 29.2 H VBG Total CO2 30.6 H VBG O2 Sat (Calc) 57.5 VBG Base Excess 4.0 H VBG Potassium 4.9 Sodium 137.0 Chloride 96.0 L Glucose 70 L Lactate 5.1 H* FiO2 21.0 Crit Value Called To Beulah Crit Value Called By [facility] Blood Gas Notified Time 2206 Potassium Carbon Dioxide Anion Gap BUN Creatinine Est GFR ( Amer) Est GFR (Non-Af Amer) Random Glucose Calcium Total Bilirubin AST ALT Alkaline Phosphatase Total Protein Albumin Globulin Albumin/Globulin Ratio Venous Blood Potassium 4.9 Attending/Attestation - Attestation I have personally seen and examined this patient.: Yes I have fully participated in the care of the patient.: Yes I have reviewed all pertinent clinical information: Yes Notes (Text): 08/19/18 01:39 Patient was seen when he was in the ER in cubicle # 13. Medical record was reviewed. Agree with consult note. I had not accepted patient to ICU, when I reviewed chart , chemistry was not back yet.
--- NOTE | 2018-08-18 21:51 | PCM.SEPTIC ---
<Pedro Bolaños - Last Filed: 08/18/18 21:51> Sepsis Progress Note - Reassessment Type Date of Evaluation: 08/18/18 Time of Evaluation: 21:51 Reassessment Type: Non-invasive reassessment - Non Invasive Reassessment Were the most recent vital sign reviewed: Yes Vital Sign (Latest): Temp Pulse Resp BP Pulse Ox 98.3 F 82 13 154/66 H 96 08/18/18 19:09 08/18/18 19:52 08/18/18 19:52 08/18/18 19:52 08/18/18 19:52 Cardiovascular: Yes: Regular Rate, Rhythm Respiratory: Yes: Normal Breath Sounds. No: Rales, Rhonchi, Stridor, Wheezing, Respiratory Distress Capillary Refill: Delayed Pulses: Normal Radial, Normal Dorsalis Pedis, Normal Posterior Tibialis Skin: Normal Color, Warm, Dry <Josi Cedillo - Last Filed: 08/19/18 01:26> Sepsis Progress Note - Non Invasive Reassessment Vital Sign (Latest): Temp Pulse Resp BP Pulse Ox 98.3 F 87 14 138/88 100 08/18/18 19:09 08/18/18 23:33 08/18/18 23:33 08/18/18 23:33 08/18/18 23:33 Attending/Attestation - Attestation I have personally seen and examined this patient.: Yes I have fully participated in the care of the patient.: Yes I have reviewed all pertinent clinical information, including history, physical exam and plan: Yes
[2018-08-18 22:06] LABS: VENOUS BLOOD PH 7.42 (7.32-7.43)
[2018-08-19] MEDS: Morphine 2 mg/ml ISec IVP PRN (05:25)
[2018-08-19 07:50] LABS: HEMOGLOBIN 8.4 g/dL (14.0-18.0); MEAN CELL VOLUME 91.9 fl (80.0-105.0); MEAN CORPUSCULAR HEMOGLOBIN 28.4 pg (25.0-35.0); MEAN CORPUSCULAR HGB CONC 30.9 g/dl (31.0-37.0); MEAN PLATELET VOLUME 10.1 fl (7.0-11.0); RBC 2.96 10^6/uL (3.5-6.1); RED CELL DISTRIBUTION WIDTH 21.1 % (11.5-14.5)
[2018-08-19 08:03] LABS: ALB/GLOB RATIO 0.8 (1.1-1.8); ALBUMIN 2.8 g/dL (3.0-4.8); CALCIUM 9.2 mg/dL (8.4-10.5)
--- NOTE | 2018-08-19 09:36 | RAD ---
Date of service: 08/18/2018 HISTORY: r/o PTX, infiltrate COMPARISON: Chest radiograph dated 08/10/2018. TECHNIQUE: 1 view obtained. FINDINGS: LUNGS: Worsening pulmonary vascular congestion/edema with confluent opacities bilaterally in the mid lungs. PLEURA: No significant pleural effusion identified, no pneumothorax apparent. CARDIOVASCULAR: Aortic atherosclerotic calcifications. Cardiomediastinal silhouette stably enlarged. OSSEOUS STRUCTURES: Unchanged. VISUALIZED UPPER ABDOMEN: Normal. OTHER FINDINGS: Interval placement of left brachiocephalic venous stent. IMPRESSION: Interval placement of left brachiocephalic venous stent. Worsening pulmonary vascular congestion/edema with development of small confluent opacities bilaterally in the mid lungs.
[2018-08-19] MEDS: Multivitamin Vitamin B Complex (Nephro-Vite) Tab PO SCH ×2 (10:37→13:39)
--- NOTE | 2018-08-19 11:52 | CARD ---
APPROVED REPORT Date of service: 08/18/2018 EKG Measurement Heart [id number] <Conclusion> Poor data quality, interpretation may be adversely affected Normal sinus rhythm T wave abnormality, consider lateral ischemia Prolonged QT Abnormal ECG
[2018-08-19] MEDS: Cefepime 1gm in NS 100ml 1 GM/100 ML BAG IVPB SCH (13:41)
[2018-08-19] MEDS: metroNIDAZOLE IV 500 mg/100 ml 500 MG/100 ML BAG IVPB SCH ×2 (13:42→21:03)
--- NOTE | 2018-08-19 15:13 | HP ---
DATE OF EXAM: 08/19/2018 HISTORY OF PRESENT ILLNESS: I saw taking care of him about three days ago at [facility]. He was sent from [place] to there. He has not eaten. He is in pain. He does not want hospice at this time at [facility]. He is on dialysis. He is in pain and stopped eating, and he is just wasting away, so I sent him back to [facility] to see if anything we can do for him, may be a feeding tube. He is a 53-year-old man who stopped eating at [facility]. He has had abdominal pain and completely stopped eating. White count is elevated, but it was elevated before he came to [facility]. He is coughing up white phlegm, little bit short of breath, abdominal pain, and wont eat. I do believe he needs to be on hospice. I think he is actively dying. We could not hospice in the [facility]. He has had hypertension and dizziness. He is on dialysis. He had blood transfusions for anemia at [facility]. He had back pain, gait unsteady, incontinence, and anxiety. He has had biopsies. He has had left upper arm AV shunt for dialysis. FAMILY HISTORY: Unknown family history. SOCIAL HISTORY: Nonsmoker and nondrinker. No drugs. ALLERGY: NO KNOWN DRUG ALLERGIES. REVIEW OF SYSTEMS: He is very weak, not really answering questions that well. He does have a cough. He does have abdominal pain. No chest pain. Absolutely no appetite. He does not want to eat at all. PHYSICAL EXAMINATION: GENERAL: He is very lethargic and cachectic. He is alert and oriented x3, but not really responding to questions well. VITAL SIGNS: A 98.3 temperature, 79 pulse, 18 respiratory rate, 143/63 blood pressure, and 95% O2 saturation. HEENT: Head is atraumatic and normocephalic. Extraocular muscles are intact. Throat is dry. NECK: Supple. No meningeal signs. HEART: Regular rate. Normal S1 and S2. LUNGS: Decreased breath sounds bilaterally. ABDOMEN: Soft. Decreased bowel sounds. No guarding. No rebound. LABORATORY DATA: He has a 51 white count, 8.8 hemoglobin, 27.6 hematocrit with a 104 platelets. Lactate is 6, 136 sodium, potassium 4.9, BUN 65, and creatinine 4.6, on dialysis. GFR is 13, sugar is 54, calcium is 9.2, total bili is 2.9, AST is 184, ALT is 48, alk phos is 458, and total protein 6.4. IMPRESSION AND PLAN: consults were Infectious Disease with a lactate of 6. Elevated white count of 50 which is probably chronic from his cancer; Renal, Infectious Disease, and [facility] for possible hospice. He does not want a feeding tube and he refuses to eat. We will see if we get him on hospice and brought him back in [facility] for feeding tube. Marshall Leavitt DO MTDD
[2018-08-20] MEDS: metroNIDAZOLE IV 500 mg/100 ml 500 MG/100 ML BAG IVPB SCH ×3 (05:14→22:23)
[2018-08-20 08:10] LABS: HEMOGLOBIN 8.7 g/dL (14.0-18.0); MEAN CELL VOLUME 90.9 fl (80.0-105.0); MEAN CORPUSCULAR HEMOGLOBIN 28.3 pg (25.0-35.0); MEAN CORPUSCULAR HGB CONC 31.2 g/dl (31.0-37.0); MEAN PLATELET VOLUME 10.6 fl (7.0-11.0); RBC 3.07 10^6/uL (3.5-6.1); RED CELL DISTRIBUTION WIDTH 21.2 % (11.5-14.5)
[2018-08-20 08:17] LABS: WHITE BLOOD COUNT 47.7 10^3/uL (4.5-11.0)
[2018-08-20 08:38] LABS: ALB/GLOB RATIO 0.8 (1.1-1.8); ALBUMIN 2.6 g/dL (3.0-4.8); CALCIUM 9.1 mg/dL (8.4-10.5)
[2018-08-20] MEDS: Multivitamin Vitamin B Complex (Nephro-Vite) Tab PO SCH ×2 (09:51→10:07)
[2018-08-20] MEDS: Cefepime 1gm in NS 100ml 1 GM/100 ML BAG IVPB SCH (10:28)
[2018-08-20] MEDS ORDERED: Dextrose 5%/0.45% NS 1,000 ML IV SCH (10:30)
--- NOTE | 2018-08-20 10:55 | CON ---
DATE OF CONSULTATION: 08/19/2018 REASON FOR CONSULTATION: Need for dialysis, shortness of breath. HISTORY OF PRESENTING ILLNESS: A 53-year-old male, previously unknown to me. The patient was sent to the emergency room from [facility]. The patient was just sent to the [facility] 2 days ago from [facility]. The patient had been admitted at that time with poor appetite, failure to thrive. During that admission, the patient had a kidney biopsy done, which showed renal cell CA. The patient was thought to be a poor candidate for treatment due to poor functional status. He was sent back to the hospital because he was having a poor appetite, losing weight, not feeling well, complaining of weakness. There was no history of any chest pain, shortness of breath, nausea, vomiting, or diarrhea. In the emergency room, he was found to be normotensive. Blood pressure was 154/66, temperature was 98.3. He was found to have an elevated WBC count of 54,000. His hemoglobin was 8.8. The patient was evaluated by the ICU. He was downgraded. He was admitted to the medical floor. Consultation is requested for need for dialysis. The patient is on dialysis on Tuesday, , and Tuesday for the last 6 months. PAST MEDICAL AND SURGICAL HISTORY: Hypertension, hyperlipidemia, ESRD, right renal cell CA with mets to the lung and liver with persistent pleural effusion, dilated cardiomyopathy, ejection fraction of 35%, anasarca, recent healthcare-associated pneumonia, metastatic pleural effusion, left AV fistula, right renal mass biopsy. FAMILY HISTORY: Hypertension. SOCIAL HISTORY: No smoking, no alcohol use, no IV drug abuse. ALLERGIES: NO KNOWN DRUG ALLERGIES. MEDICATIONS AT HOME: Albuterol, aspirin, Lipitor, Cozaar, Renagel, and Tylenol. REVIEW OF SYSTEMS: The patient is very cachectic, appears chronically ill, very tired, really not able to cooperate with systems review. PHYSICAL EXAMINATION: GENERAL: Middle-aged male, sitting in bed. VITAL SIGNS: Blood pressure 88/42, heart rate 85, respiratory rate 18, temperature 98. HEENT: Normocephalic, atraumatic, positive pallor. NECK: Supple, no JVD. LUNGS: Distant breath sounds, decreased breath sounds at the bases, no rhonchi. CARDIAC: S1 and S2, regular rate and rhythm, no murmur, no rub. ABDOMEN: Distended, soft, positive fluid thrill, bowel sounds present. EXTREMITIES: 2+ pitting edema of the lower extremities. INTAKE AND OUTPUT: Not charted. LABORATORY DATA: WBC 54, hemoglobin 8.4, hematocrit 27, platelets of 91. Sodium 136, potassium 5, chloride 94, CO2 of 24, BUN 60, creatinine 3.9, glucose 36, calcium 9.1, total bili 3.1, AST 184, ALT 148. Blood culture, no growth. CURRENT MEDICATIONS: Aspirin, Cozaar 25, DuoNeb, Flagyl, heparin, Lipitor, Lopressor 25 b.i.d., cefepime 1 g daily, morphine, Renagel, Tylenol, and tramadol. ASSESSMENT: 1. , cachexia, fatigue. 2. Leukocytosis. 3. Severe anemia. 4. Right renal cell cancer with metastases to the liver and the lung. 5. End-stage renal disease. 6. Hypotension. PLAN; 1. Hold losartan 2. Hold Lopressor. 3. Dialysis today. 4. Decrease ultrafiltration to 2 kg. 5. Follow up cultures. 6. Empiric antibiotics. 7. Prognosis is guarded. Chhaya Fowler MD
--- NOTE | 2018-08-20 14:34 | PN ---
DATE: 08/20/2018 SUBJECTIVE: The patient is in bed, in no acute distress. PHYSICAL EXAMINATION: VITAL SIGNS: Temperature is 97, blood pressure is 111/70, respiratory rate of 18, heart rate of 70. HEENT: Unremarkable. NECK: Supple. LUNGS: Have decreased breath sounds. HEART: Normal S1, S2. ABDOMEN: Soft. LABORATORY DATA: Laboratory examination reveals a white count of 47,000, hemoglobin of 8, creatinine of 3.9. Microbiology reveals the blood cultures are negative x24 hours. Review of orders reveals the patient is on Flagyl and cefepime. ASSESSMENT: This is a 53-year-old male who was seen earlier today with a history of hypertension, hyperlipidemia, end-stage renal disease on hemodialysis with a right renal cell clear cell cancer with metastases to the liver and lung with persistent pleural effusion, dilated cardiomyopathy with ejection fraction reduced to 35%, recently treated with healthcare-associated biopsy and had a renal biopsy which showed clear cell cancer and admitted with weakness and fatigue, leukocytosis and tachycardia with systemic inflammatory response syndrome with negative blood cultures, must rule out GI as the source, on Flagyl and cefepime, waiting for final culture results. Overall prognosis is quite poor. Should consider hospice setting. Stu Stephens MD
[2018-08-20] MEDS: Morphine 2 mg/ml ISec IVP PRN ×2 (17:12→22:24)
--- NOTE | 2018-08-20 18:36 | PN ---
DATE: 08/20/2018 SUBJECTIVE: I saw him this morning, getting an IV put in. His IV came out. He was alert. He did eat some of his omelettes. He may be ate 10 to 15% which is much better than he has been over the past 4 to 5 days. He was also looking at me, mouthed a couple of words, a little bit stronger. First day in 5 days I think he actually looked a little bit better, although he has got very, very bad disease. MEDICATIONS: He is on Aspirin, Cozaar, DuoNeb, Flagyl, heparin, Lipitor, Lopressor, Maxipime, morphine, Nephro-Denice, Renagel, Tylenol, and Ultram. PHYSICAL EXAMINATION: VITAL SIGNS: He has a 97.8 temp, 70 pulse, 111/71 blood pressure, 18 respiratory rate, and 95% O2 saturation. HEENT: Head is atraumatic and normocephalic. His eyes are more clear today and he opened them up fully. Throat is a little moist. HEART: Regular rate. LUNGS: Decreased breath sounds. Poor inspiration, probably he is moving air. ABDOMEN: Soft. EXTREMITIES: No edema. He did eat today which is, to me, good for him. LABORATORY DATA: His white count was as high as 54, it is down to 47.7, still extremely high, 8.7 hemoglobin, 27.9 hematocrit with a 78 platelets. Lactate down to 5.1, he came in with lactate of 6, 136 sodium, potassium 5, BUN 60, and creatinine 3.9, a bit better, not the same, GFR 16, sugar was as low as 36, I did give him apple juice. We are trying to get an IV D . He has a 9.1 calcium, 3.1 bili, AST is 206, ALT is 50, alk phos 431, and total protein 5.9. IMPRESSION AND PLAN: He has multiple consults; Infectious Disease, Renal, Surgery for his sacral ulcer, for possible hospice. I will check his labs tomorrow. Continue with aggressive treatment and care on Remigio Vega. When we can, we will get physical therapy and try to get him out of bed to chair. I do not think he is ready for it today, but may be by tomorrow, if he continues to improve. Continue aggressive treatment and care. Marshall Leavitt DO MTDNoreen
[2018-08-21] MEDS: metroNIDAZOLE IV 500 mg/100 ml 500 MG/100 ML BAG IVPB SCH (06:10)
[2018-08-21 07:52] LABS: HEMOGLOBIN 8.1 g/dL (14.0-18.0); MEAN CELL VOLUME 91.6 fl (80.0-105.0); MEAN CORPUSCULAR HEMOGLOBIN 28.4 pg (25.0-35.0); MEAN PLATELET VOLUME 10.3 fl (7.0-11.0); RBC 2.85 10^6/uL (3.5-6.1); RED CELL DISTRIBUTION WIDTH 21.2 % (11.5-14.5)
[2018-08-21 08:03] LABS: WHITE BLOOD COUNT 50.6 10^3/uL (4.5-11.0)
[2018-08-21 08:15] LABS: ALB/GLOB RATIO 0.8 (1.1-1.8); ALBUMIN 2.5 g/dL (3.0-4.8)
[2018-08-21] MEDS ORDERED: Dextrose 50% SYRINGE Inj (50 ml) IVP ONE ×2 (08:15→15:13)
[2018-08-21 08:26] VITALS: RESP 20
[2018-08-21] MEDS: Multivitamin Vitamin B Complex (Nephro-Vite) Tab PO SCH (08:58)
[2018-08-21] MEDS: Dextrose 50% SYRINGE Inj (50 ml) IVP PRN ×2 (10:08→11:42)
--- NOTE | 2018-08-21 13:03 | PN ---
DATE: 08/21/2018 SUBJECTIVE: The patient is in bed, in no acute distress, nontoxic. The patient's has been refusing care. PHYSICAL EXAMINATION: VITAL SIGNS: Temperature is 97, blood pressure 140/80, respiratory rate of 18. HEENT: Unremarkable. NECK: Supple. LUNGS: Have decreased breath sounds. HEART: Normal S1, S2. ABDOMEN: Soft, nontender. LABORATORY DATA: Laboratory examination reveals a white count is 47,000, hemoglobin of 8. Chemistries reveals a BUN of 60, creatinine of 3.9. Microbiology reveals the blood cultures are negative and review of orders reveals the patient to be on Flagyl and cefepime. ASSESSMENT AND PLAN: This is a 53-year-old male with hypertension, hyperlipidemia, end-stage renal disease on hemodialysis with a right renal cell clear cell cancer with metastases to liver and lung persistent fluid effusion, dilated cardiomyopathy, reduced ejection fraction of 35%, recently treated for healthcare-associated pneumonia, had a renal biopsy which showed a renal cell cancer, admitted with fatigue, and weakness with systemic inflammatory response syndrome. Should consider hospice setting for this patient and discontinue the antibiotics and thus far, the pancultures are negative. We will change the Flagyl to p.o. Overall prognosis is quite poor, should be at a hospice setting. Stu Stephens MD
--- NOTE | 2018-08-21 13:55 | CP.PCM.CON ---
History of Present Illness - History of Present Illness History of Present Illness: SURGERY NOTE FOR DR. GARCÍA 53M with history of metastatic renal cell carcinoma presents with pneumonia. Patient has mets to the lung and liver. Surgery consulted for venous access. Patient is a hard stick and in need of crucial medications for his health. PMH: CKD, HTN, RCC with mets to lung and liver PSH: L AVF Past Patient History - Infectious Disease Hx of Infectious Diseases: None - Past Social History Smoking Status: Never Smoked - CARDIAC Hx Hypertension: Yes - NEUROLOGICAL Hx Dizziness: Yes - RENAL Hx Dialysis: Yes ([facility]) Date of Last Dialysis Treatment: 08/05/18 - HEMATOLOGICAL/ONCOLOGICAL Hx Anemia: Yes Hx Blood Transfusions: Yes (in [facility] [place] Hx Cancer: Yes - MUSCULOSKELETAL/RHEUMATOLOGICAL Hx Falls: Yes - GENITOURINARY/GYNECOLOGICAL Hx Incontinence: Yes - PSYCHIATRIC Hx Anxiety: Yes Hx Depression: Yes Hx Substance Use: No - SURGICAL HISTORY Other/Comment: Biopsy. BERE AV shunt - ANESTHESIA Hx Anesthesia: Yes Hx Anesthesia Reactions: No Hx Malignant Hyperthermia: No Meds Allergies/Adverse Reactions: Allergies Allergy/AdvReac Type Severity Reaction Status Date / Time No Known Allergies Allergy Verified 08/18/18 17:22 - Medications Medications: Current Medications Acetaminophen (Tylenol 325mg Tab) 650 mg PO Q6H PRN PRN Reason: Fever >100.4 F Albuterol/Ipratropium (Duoneb 3 Mg/0.5 Mg (3 Ml) Ud) 3 ml IH Q2H PRN PRN Reason: Shortness of Breath Aspirin (Aspirin Chewable) 81 mg PO DAILY [facility] Last Admin: 08/21/18 11:59 Dose: Not Given Atorvastatin Calcium (Lipitor) 40 mg PO DIN [facility] Last Admin: 08/20/18 16:57 Dose: 40 mg Dextrose (Dextrose 50% Inj) 50 ml IVP ONCE PRN PRN Reason: Hypoglycemia Last Admin: 08/21/18 11:42 Dose: 50 ml Heparin Sodium (Porcine) (Heparin) 5,000 units SC Q8 [facility]; Protocol Last Admin: 08/21/18 06:45 Dose: Not Given Cefepime HCl (Maxipime 1gm) 1 gm in 100 mls @ 100 mls/hr IVPB Q24H [facility]; Protocol Stop: 08/28/18 11:16 Last Admin: 08/20/18 10:28 Dose: 100 mls/hr Dextrose/Sodium Chloride (Dextrose 5%/0.45% Ns 1000 Ml) 1,000 mls @ 30 mls/hr IV .Q24H [facility] Last Admin: 08/20/18 10:38 Dose: 30 mls/hr Losartan Potassium (Cozaar) 25 mg PO QPM [facility] Last Admin: 08/20/18 17:00 Dose: 25 mg Metoprolol Tartrate (Lopressor) 25 mg PO BID [facility] Last Admin: 08/21/18 11:59 Dose: Not Given Metronidazole (Flagyl) 250 mg PO Q8H [facility]; Protocol Stop: 08/26/18 08:01 Last Admin: 08/21/18 08:58 Dose: 250 mg Morphine Sulfate (Morphine) 1 mg IVP Q6H PRN PRN Reason: Pain, severe (8-10) Last Admin: 08/20/18 22:24 Dose: 1 mg Sevelamer HCl (Renagel) 800 mg PO TID [facility] Last Admin: 08/21/18 12:00 Dose: Not Given Tramadol HCl (Ultram) 50 mg PO TID PRN PRN Reason: Pain, severe (8-10) Last Admin: 08/20/18 19:52 Dose: 50 mg Vitamin B Complex/Vit C/Folic Acid (Nephro-Denice) 1 tab PO 0800 [facility] Last Admin: 08/21/18 08:58 Dose: 1 tab Physical Exam - Constitutional Appears: Non-toxic, No Acute Distress - ENT Exam ENT Exam: Mucous Membranes Moist - Respiratory Exam Respiratory Exam: NORMAL BREATHING PATTERN - Cardiovascular Exam Cardiovascular Exam: REGULAR RHYTHM, +S1, +S2 Additional comments: Mass on chest - GI/Abdominal Exam GI & Abdominal Exam: Soft. absent: Distended, Firm, Guarding, Rebound, Rigid, Tenderness - Extremities Exam Extremities exam: Negative for: pedal edema, tenderness - Neurological Exam Neurological exam: Alert - Skin Skin Exam: Dry, Intact, Normal Color, Warm Results - Vital Signs Recent Vital Signs: Last Vital Signs Temp 97.4 F L 08/21/18 06:00 Pulse 76 08/21/18 06:00 Resp 20 08/21/18 06:00 BP 126/66 08/21/18 06:00 Pulse Ox 98 08/21/18 06:00 - Labs Result Diagrams: 08/21/18 07:30 08/21/18 07:30 Labs: Laboratory Results - last 24 hr 08/21/18 08/21/18 08/21/18 07:30 07:30 09:32 WBC 50.6 H* RBC 2.85 L Hgb 8.1 L Hct 26.1 L MCV 91.6 MCH 28.4 MCHC 31.0 RDW 21.2 H Plt Count 66 L MPV 10.3 Sodium 137 Potassium 5.5 H Chloride 98 Carbon Dioxide 18 L Anion Gap 27 H BUN 78 H Creatinine 4.4 H Est GFR ( Amer) 17 Est GFR (Non-Af Amer) 14 POC Glucose (mg/dL) 43 L Random Glucose 26 L* D Calcium 8.0 L Total Bilirubin 3.1 H AST 251 H D ALT 69 H Alkaline Phosphatase 391 H Total Protein 5.7 L Albumin 2.5 L Globulin 3.2 Albumin/Globulin Ratio 0.8 L 08/21/18 08/21/18 08/21/18 10:14 11:30 12:01 WBC RBC Hgb Hct MCV MCH MCHC RDW Plt Count MPV Sodium Potassium Chloride Carbon Dioxide Anion Gap BUN Creatinine Est GFR ( Amer) Est GFR (Non-Af Amer) POC Glucose (mg/dL) 102 37 L* 68 Random Glucose Calcium Total Bilirubin AST ALT Alkaline Phosphatase Total Protein Albumin Globulin Albumin/Globulin Ratio Assessment & Plan - Assessment and Plan (Free Text) Assessment: 53M with end stage Renal cell carcinoma Plan: - right IJ central line placed - CXR pending - consent obtained from - Sister visiting and aware of procedure Discussed with Dr James Rene, PGY3
--- NOTE | 2018-08-21 13:59 | PCM.PROC ---
Procedures Attestation:: I certify that I have explained the specified Operation(s) or Procedure(s), risks, benefits and reasonable alternatives to the Patient and/or other person responsible. The opportunity was given to ask questions and all questions answered - Central Line Placement Right Internal Jugular Triple Lumen Catheter Aseptic technique was employed throughout the procedure: Full sterile barriers (mask, hair cover, sterile gown, sterile gloves), Full body sterile drape, Chlo raprep Antiseptic: 30 second prep for IJ or SC sites CVP Time Out Performed: Yes Pt. Placed on Pulse Ox Monitor: Yes Central Line Prep: Chlorhexidine-Alcohol Combination Local Anesthesia Used: Lidocaine 1% Amount of Anesthesia Used (mls): 4 Ultrasound Used for Placement: Yes Central Line Lumen Inserted: triple Central Line Length: 30 cm Post Procedure: Sutured in Place, Good Blood Return, All Ports Aspirated, Flushed, Capped, Sterile Dressing Applied Secured by: Suture Post procedure dressing: Clear vapor permeable, Chlorhexidine disc (Biopatch) Post Procedure X-Ray: Yes Patient Tolerated Procedure: Well Immediate Complications: None
--- NOTE | 2018-08-21 14:03 | RAD ---
Date of service: 08/21/2018 HISTORY: TLC PLACEMENT COMPARISON: Chest radiograph dated 08/18/2018. TECHNIQUE: 1 view obtained. FINDINGS: LUNGS: Similar to slightly improved pulmonary vascular congestion/edema. PLEURA: Left effusion not excluded. No appreciable pneumothorax. CARDIOVASCULAR: Aortic atherosclerotic calcifications. Cardiomediastinal silhouette stably enlarged. OSSEOUS STRUCTURES: Unchanged. VISUALIZED UPPER ABDOMEN: Normal. OTHER FINDINGS: Right internal jugular access central venous catheter with tip at the cavoatrial junction. Left brachiocephalic venous stent redemonstrated. IMPRESSION: New right internal jugular access central venous catheter in satisfactory position. No appreciable pneumothorax. Similar to slightly improved pulmonary vascular congestion/edema. Left effusion not excluded.
--- NOTE | 2018-08-21 14:20 | PN ---
DATE: 08/21/2018 SUBJECTIVE: He lost his IV access. He is going to be going to dialysis. His blood sugars have been up and down, cannot give dextrose, also IV antibiotics. Awaiting for palliative care to help us possibly with getting him on hospice. I also called up Hematology/Oncology due to his lab changes. MEDICATIONS: Aspirin, Cozaar, dextrose when can, DuoNebs, Flagyl, heparin will be on hold because his platelets are low, Lipitor, Lopressor, Maxipime on hold due to no IV access, same with the morphine, Nephro-Denice, Renagel, Tylenol, and Ultram. PHYSICAL EXAMINATION: GENERAL: He is alert, he is not eating that much. VITAL SIGNS: 97.4 temperature, 76 pulse, 126/66 blood pressure, 20 respiratory rate, 98% O2 sat on nasal cannula. HEENT: Head is atraumatic, normocephalic. His eyes are open, he is looking at me, not eating much. HEART: Regular rate. LUNGS: Decreased breath sounds bilaterally. ABDOMEN: Soft. EXTREMITIES: No edema. LABORATORY DATA: He has a 137 sodium, potassium 5.5 dialysis will help with the potassium being elevated. BUN is 78, creatinine 4.4. Sugars as low as 26 and went to 102 with dextrose. Calcium is 8. Total bili is 3.1, AST is 51, ALT is 69, alk phos 391, total protein is 5.7. White count up to 50.6, cannot give him antibiotics due to the fact he does not have any IV access, hemoglobin is 8.1, hematocrit is 26.1, platelets are low at 66. ASSESSMENT AND PLAN: I called on Hematology. I think this is mostly end-stage cancer. I am hoping to get him on hospice and back at the [facility]. He has still many issues. Hypertension, high cholesterol, end-stage renal disease on dialysis, renal cell carcinoma with metastasis to liver and lungs, pleural effusion, dilated cardiomyopathy, ejection fraction is reduced to 35%. Continue with aggressive treatment and care right now until hospice is put into place. Marshall Leavitt DO [facility] # [id number] MTDD
[2018-08-21] MEDS ORDERED: Absorbable Gelatin Sponge Size 12-7 MM STA ×2 (14:35→16:49)
[2018-08-21] MEDS: Cefepime 1gm in NS 100ml 1 GM/100 ML BAG IVPB SCH (15:36)
[2018-08-21] MEDS: Morphine 2 mg/ml ISec IVP PRN (15:36)
[2018-08-21 16:21] LABS: HEMOGLOBIN 7.7 g/dL (14.0-18.0); MEAN CELL VOLUME 91.1 fl (80.0-105.0); MEAN CORPUSCULAR HEMOGLOBIN 28.5 pg (25.0-35.0); MEAN CORPUSCULAR HGB CONC 31.3 g/dl (31.0-37.0); MEAN PLATELET VOLUME 9.8 fl (7.0-11.0); RBC 2.7 10^6/uL (3.5-6.1); RED CELL DISTRIBUTION WIDTH 21.3 % (11.5-14.5)
[2018-08-21 16:23] LABS: INR 2.58; PARTIAL THROMBOPLASTIN TIME 36.2 Seconds (26.9-38.3); PROTHROMBIN TIME 28.6 SECONDS (9.4-12.5)
[2018-08-21 16:24] LABS: WHITE BLOOD COUNT 53.6 10^3/uL (4.5-11.0)
[2018-08-21] MEDS ORDERED: Lidocaine 1% Inj (20ml) IJ STA (16:47)
[2018-08-21 16:57] VITALS: O2SAT 95
[2018-08-21] MEDS ORDERED: Morphine 2 mg/ml ISec IVP PRN (17:56)
--- NOTE | 2018-08-22 00:25 | PN ---
DATE: 08/21/2018 SUBJECTIVE: The patient is seen lying in bed. and sister are at bedside. The patient seems to be lethargic. He was dialyzed earlier today. He was very agitated and aggravated during dialysis. He was very restless. Did not complete the treatment. Kept moving. Wanted to come off. He only got 1 hour and 15 minutes of dialysis. PHYSICAL EXAMINATION GENERAL: A cachectic middle-aged male lying in bed. VITAL SIGNS: Blood pressure 138/75, heart rate 80, respiratory rate 20, temperature 97.6. HEENT: Normocephalic, atraumatic, positive pallor, positive icterus. NECK: Supple, no JVD. LUNGS: Bilateral equal air entry, bilateral equal expansion with decreased breath sounds at the bases. CARDIAC: S1, S2, regular rate and rhythm, no murmur, no rub. ABDOMEN: Obese, distended, soft, nontender, bowel sounds present. EXTREMITIES: 3+ pitting edema of the lower extremities. INTAKE AND OUTPUT: Not charted. LABORATORY DATA: WBC 53.6, hemoglobin 7.7, hematocrit 24.6, platelets 61. Sodium 137, potassium 5.5, chloride 98, CO2 of 18, BUN 78, creatinine 4.4, glucose of 26, calcium 8, total bili 3.1, AST 251, ALT 69, albumin 2.5. Blood cultures no growth. CURRENT MEDICATIONS: Aspirin, losartan 25 mg, D5 half-normal saline at 30 mL/hour, DuoNeb, Flagyl 250 mg every 8 hours, Lipitor, Lopressor 25 mg b.i.d., cefepime 1 g, morphine, Renagel 800 mg t.i.d., Tylenol, tramadol. ASSESSMENT 1. Metastatic renal cell cancer with liver metastases and lung metastases. 2. Sepsis, leukocytosis. 3. Ascites/anasarca. 4. End-stage renal disease. 5. Coronary artery disease. 6. Congestive heart failure. PLAN 1. We will attempt dialysis again tomorrow, the patient was dialyzed only per hour and 15 minutes today. The patient was very uncomfortable. We will try to give Ativan 1 mg before dialysis. 2. Continue antibiotics as per ID recommendations. 3. Follow up cultures. 4. A long discussion with the and sister at bedside regarding poor prognosis. Discussed possibility of comfort care as an option. They will consider it, but they would like the dialysis to be continued tomorrow. Chhaya Fowler MD
[2018-08-22] MEDS: Dextrose 50% SYRINGE Inj (50 ml) IVP PRN (03:51)
[2018-08-22] MEDS ORDERED: Dextrose 50% SYRINGE Inj (50 ml) ONE (03:51)
[2018-08-22] MEDS ORDERED: Dextrose 50% SYRINGE Inj (50 ml) IVP STA (04:11)
--- NOTE | 2018-08-22 06:31 | CON ---
DATE: 08/19/2018 CHIEF COMPLAINT: Weakness. HISTORY OF PRESENT ILLNESS: This is a 53-year-old male with past medical history significant for renal cancer which was recently diagnosed with end-stage renal disease, kidney disease on hemodialysis on Tuesday, , and Tuesday, who was recently hospitalized and had a renal mass biopsy which revealed clear cell renal cell carcinoma and found to have metastasis. The patient did have sepsis and has healthcare-associated pneumonia was treated with antibiotics and the patient had cancer to the liver, metastasis and lung metastasis, was treated with meropenem and doxycycline at his last admission and now returns to the emergency room complaining of weakness, found to have leukocytosis. Infectious disease consultation is requested. The patient has complained of weakness, mild shortness of breath, generalized abdominal pain, mild shortness of breath. PAST MEDICAL HISTORY: Clear cell renal cancer, metastasis to liver and lung mass; end-stage renal disease, on hemodialysis; healthcare-associated pneumonia, hypertension, anemia, anasarca. PAST SURGICAL HISTORY: Significant for recent CAT scan directed biopsy. The patient also has a left upper arm AV shunt. ALLERGIES: THE PATIENT HAS NO KNOWN ALLERGIES. MEDICATIONS: The patient's medications are reviewed. PHYSICAL EXAMINATION: GENERAL: The patient is in bed, appearing chronically ill, debilitated. VITAL SIGNS: Temperature of 97, heart rate of 87, respiratory rate of 20, blood pressure of 138/80. HEENT: Unremarkable. NECK: Supple. LUNGS: Decreased breath sounds. HEART: Normal S1 and S2. ABDOMEN: Soft and nontender. No rebound. No guarding. LABORATORY DATA: Reveals a white count of 51,000, hemoglobin of 8, platelets of 104. Chemistry reveals a BUN of 50, creatinine of 3.9. LFTs are elevated. The patient had a chest x-ray, worsening pulmonary congestion with confluent opacities bilaterally. Emergency room chart is reviewed written by . Microbiology from previous admission with blood cultures negative. Nares is negative for MRSA and sputum culture has yeast. ASSESSMENT AND PLAN: A 53-year-old male with abdominal pain with leukocytosis most likely secondary to a liver metastasis, I doubt infectious etiology. However, we will empirically start Flagyl and cefepime pending culture results. The patient did have a CAT scan of the abdomen and pelvis earlier this month for admission and is reviewed. Overall prognosis is quite poor for this patient, should consider a hospice setting. Stu Stephens MD
[2018-08-22 07:17] LABS: MEAN CELL VOLUME 93.4 fl (80.0-105.0); MEAN CORPUSCULAR HEMOGLOBIN 29.4 pg (25.0-35.0); MEAN CORPUSCULAR HGB CONC 31.5 g/dl (31.0-37.0); MEAN PLATELET VOLUME 9.4 fl (7.0-11.0); RBC 2.28 10^6/uL (3.5-6.1); RED CELL DISTRIBUTION WIDTH 21.4 % (11.5-14.5)
[2018-08-22 07:24] LABS: HEMOGLOBIN 6.7 g/dL (14.0-18.0); WHITE BLOOD COUNT 59.7 10^3/uL (4.5-11.0)
[2018-08-22 07:51] LABS: ALB/GLOB RATIO 0.8 (1.1-1.8); ALBUMIN 2.6 g/dL (3.0-4.8); CALCIUM 8.3 mg/dL (8.4-10.5)
[2018-08-22 08:31] VITALS: BP 103/59; PULSE 70; TEMP 95.7
[2018-08-22] MEDS: Multivitamin Vitamin B Complex (Nephro-Vite) Tab PO SCH (08:58)
--- NOTE | 2018-08-22 10:07 | PCM.RRT ---
<Stephany Peñaloza - Last Filed: 08/22/18 09:56> EXERCISE SCIENCE INSTRUCTOR Nurse Assessment - Situation Date: 08/22/18 Time EXERCISE SCIENCE INSTRUCTOR was called: 09:42 EXERCISE SCIENCE INSTRUCTOR Location:: Renal Dialysis EXERCISE SCIENCE INSTRUCTOR Reason for Call: Hypotension, Change in Mental Status EXERCISE SCIENCE INSTRUCTOR Called By: RN - Respiratory Oxygen Delivery Method: Nasal Cannula @L/min, Non Rebreather @% Oxygen Flow Rate: 10 - Recommendations 5) EXERCISE SCIENCE INSTRUCTOR Level of Care Recommendations: transfer back to patient's room Notifications: Attending Physician, Consultations, Family or Designated Caregiver I.Reason for EXERCISE SCIENCE INSTRUCTOR - A) Acute Change in Patient: (Select all that apply): Staff member or family is worried about patient, Acute change in mental status - Neurological Status (Select all that apply): Confused - Respiratory Oxygen Delivery Method: Non Rebreather @% (10 L/min) - Constitutional Appears: Toxic, Cachectic - Head Head Exam: ATRAUMATIC, NORMOCEPHALIC - Eyes Eye Exam: EOMI - Respiratory Exam Respiratory Exam: Rales - Cardiovascular Exam Cardiovascular Exam: RRR, +S1, +S2 - GI/Abdominal Exam GI & Abdominal Exam: Soft, Normal Bowel Sounds - Neurological Exam Neurological Exam: Awake. absent: Alert, Oriented x3 Plan - Assessment of Findings&Treatment Plan 53 year old male with past medical history of HTN, HLD, ESRD on HD (T, T, Sa), R Renal cell carcinoma with mets to lung and liver w/ persistent pleural effusion, dilated cardiomyopathy w/ EF of 35%, diffuse anasarca who was admitted for weakness and poor appetite. A rapid response was called while the patient was 40 minutes into his dialysis session. Per nursing staff, the patient was noted to be less responsive and altered. His blood pressure was also noted to be low with a systolic blood pressure in the 70s. Dialysis was immediately stopped and the patient was a given a 1 L bolus of NS and placed on a 100% NRB mask. The patient was immediately identified to be a DNR/DNI. The DNR/DNI status was confirmed when looking at the patient's physical chart, the EHR, and verbally from the patient's sister and PMD, Dr. Leavitt. The plan of action is to stop dialysis, as the patient was not tolerating it, and take the patient back to his room. The PMD was alerted to the rapid response who stated the patient should be taken back to his room. The patient's sister, who was present during the event, was notified of what had occurred during the rapid response. His is also going to be notified of the event. Palliative care FLIGHT COORDINATOR, Erendira Gonzalez, will be notified as well. Medically, the patient's mentation did improve with fluids and the oxygen via NRB mask. <Anat Irizarry - Last Filed: 08/22/18 16:24> Attending/Attestation - Attestation I have personally seen and examined this patient.: Yes I have fully participated in the care of the patient.: Yes I have reviewed all pertinent clinical information, including history, physical exam and plan: Yes Notes (Text): Attending note; Rapid response was called during dialysis. Patient had episodes of hypotension. Patient was also having deep agonal breathing. Patient with an advanced metastatic renal cancer. Hemodialysis stopped. IV fluid bolus given patient is placed on nonrebreather. Patient's [id number] by the bedside. Patient's informed. Case discussed with palliative care in detail. Plan for hospice care. Case discussed with PMD Dr. Leavitt in detail. Further treatment per PMD. 08/22/18 16:22
--- NOTE | 2018-08-22 10:14 | PCM.PCON ---
History of Present Illness - History of Present Illness History of Present Illness: Palliative consult requested by Dr Yarely Leavitt Reason: Goals of care/hospice discussion This is a 53 year old male history of Renal cell Cancer, HTN, HLD, ESRD on HD who was sent from [facility] with anorexia, weaknesses. Labs: WBC 59.7, Hgb 6.7, Plt 92, Na 137, K 6.7, BUN 78, Emergency Telecommunications Dispatcher 4.6, T bili 3.1, AST 3428, ALT 497, Alk Phos 277,t Lactate 5.1 Chest X ray:Pulmonary right vascular congestion,/edema. Laeft effusion not excluded. R internal jugular CVC in situ PM Hx: HTN, HLD, ESRD on HD (T, T, S), Renal cell carcinoma,dilated cardiomyopathy,EF of 35%, diffuse anasarca. PSHx: L AV fistula, R Renal mass biopsy Social History: Denies alcohol, drug or tobacco use. 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 Review of Systems: As per HPI, unable to obtain as patient is altered Physical Exam - Constitutional Appears: Cachectic, Chronically Ill Additional comments: Vital Signs: T 97.2, Bp100/50, P 70, R 23 - Eye Exam Eye Exam: Scleral icterus Additional comments: sluggish - ENT Exam ENT Exam: Mucous Membranes Moist - Neck Exam Neck exam: Positive for: Normal Inspection - Respiratory Exam Respiratory Exam: Accessory Muscle Use, Decreased Breath Sounds - Cardiovascular Exam Cardiovascular Exam: +S1, +S2 - GI/Abdominal Exam GI & Abdominal Exam: Distended, Hypoactive Bowel Sounds, Soft - Extremities Exam Extremities exam: Positive for: pedal edema - Neurological Exam Neurological exam: Altered - Skin Skin Exam: Pallor, Warm - Additional Findings Additional findings: Palliative performance scale 20% Palliative Care Assessment - Modified MRC Dyspnea Scale Modified MRC Dyspnea Scale: Too breathless to leave the house,or breathless dressing or undressing Grade: 5 - Pain Scale Pain Scale Used: [place] - Pain Description Intensity of pain at present: 4 Pain Behavior: Restlessness, Facial Grimacing Aggravating Factors: Changing Position, Exercise/Activity Alleviating Factors/Management Techniques: Medication, Position Change - Camilo Scale Sensory Perception: Completely Limited Moisture: Occasionally Moist Activity: Bedfast Mobility: Completely Immobile Nutrition: Very Poor Friction & Shear: Problem Total Score - Skin Risk Assessment: 8 - Psychosocial Distress Patient screened for psychosocial distress: Yes Outcome: Referred to social staff worker - Goals Treatment Goal(s): Alleviate symptoms, Improve quality of life End of life care discussed: Yes - Plan Interdisciplinary involved: rattan worker Discharge planning: Hospice Assessment & Plan - Assessment and Plan (Free Text) Assessment: This is a 53 year old male with past medical history of HTN, HLD, ESRD on HD (T, T, Sa), R Renal cell carcinoma with mets to lung and liver, persistent pleural effusion, dilated cardiomyopathy w/ EF of 35%, diffuse anasarca who was admitted for weakness and poor appetite. The patient is minimally responsive, unable to follow command. He is restless. His breathing has shallow irregular breathing. FACILITY OPERATIONS MANAGER was called in HD. Patients and sister at bedside. Family was updated of his condition by medical team, they are aware that his prognosis is very poor. They understand that he is to weak and unable to tolerate dialysis. Goals of care discussed. Family verbalize understanding of situation, family slowly accepting that patient is nearing end of life. Hospice care offered. Psychosocial support and end of life counseling provided. /sibling met with [facility] patient account liaison. Time spent with family in goals of care and end of life counseling, 50 minute Plan: Goals of care and advance care planning DNR/DNI Hospice evaluation Continue Cefepime IVF's as ordered Discharge to [facility] hospice care
--- NOTE | 2018-08-22 12:41 | PN ---
DATE: 08/22/2018 SUBJECTIVE: He is not doing well at all. He is alert. His eyes are open. He tells me little bit hungry. He is going to dialysis today. He is definitely failing. I had a discussion with his yesterday and she made him a DNR/DNI, but still wants everything else done, understands that if his heart and lungs dialysis today. MEDICATIONS: He is on aspirin, Ativan, Cozaar and dextrose blood sugar is IV dextrose fluids, DuoNebs, Flagyl, heparin, Lipitor, metoprolol, cefepime, morphine, vitamin D, Renagel, Tylenol and Ultram as needed. PHYSICAL EXAMINATION: VITAL SIGNS: He has a 97.3 temp, 76 pulse, 138/74 blood pressure and 20 respiratory rate. HEENT: His head is atraumatic and normocephalic. He is alert. He is looking at me tells me he is hungry whispered. HEART: Regular rate. LUNGS: Decreased breath sounds. ABDOMEN: Soft. EXTREMITIES: No edema. NEUROLOGIC: He is cachectic, thin, frail, weak. LABORATORY DATA: He has 59.7 white count going up on antibiotics, 6.7 hemoglobin. I gave him 2 units of packed red blood cells today, hematocrit 21.3 and platelets 92. He has a sodium 137, potassium 6.7, he is ready to go for dialysis today, 78 BUN creatinine 4.6, GFR is 13, sugar is 56, calcium is 8.3 and total bili is 3.1. His AST is 3428 and ALT is 497. ASSESSMENT AND PLAN: He is in trouble. I think he is actively dying, I am hoping that DANGELO Moran will talk to the family about making him hospice. We will continue aggressive treatment and care until the changes the mind. Marshall Leavitt DO MTD[facility]oreen
--- NOTE | 2018-08-22 16:11 | PN ---
DATE: 08/22/2018 SUBJECTIVE: The patient is in bed, in no acute distress, but however chronically debilitated. PHYSICAL EXAMINATION: VITAL SIGNS: On exam, temperature is 95, blood pressure is 103/50, respiratory rate of 180. HEENT: Examination of HEENT is unremarkable. NECK: Supple. LUNGS: Have decreased breath sounds. HEART: Normal S1, S2. ABDOMEN: Soft. LABORATORY DATA: Laboratory examination reveals a white count of 59,000, BUN of 78, creatinine of 4.6. Cultures are all negative and Gabby Gonzalez's report is reviewed from today. The patient is for hospice evaluation. ASSESSMENT AND PLAN: A 53-year-old male with hypertension, hyperlipidemia, end-stage renal disease on hemodialysis, right renal clear cell metastasis to liver, currently admitted with weakness and SIRS (systemic inflammatory response syndrome). Cultures are negative. This is all malignancy. We will discontinue the antibiotics. The patient hospice setting. Stu Stephens MD
--- NOTE | 2018-08-22 17:19 | CON ---
DATE: 08/22/2018 ONCOLOGY CONSULTATION HISTORY OF PRESENT ILLNESS: This is a 53-year-old man with evidently renal cell carcinoma, the history says it is metastatic to the liver. The patient is uncommunicative. PHYSICAL EXAMINATION: GENERAL: Temporal wasting noted. NODES: Nonpalpable in the axillary, cervical, supraclavicular, and inguinal regions. LUNGS: At present, seem to be clear. He has to lie flat in bed. HEART: S1, S2. ABDOMEN: Shows no liver, no spleen, no rebound. EXTREMITIES: Shows no edema. CENTRAL NERVOUS SYSTEM: The plantars are downgoing bilaterally. The patient is uncommunicative and is breathing in a rapid rate. He seems to be septic. LABORATORY DATA: The white count is about 55,000 with hemoglobin about 8, platelet count to about 40,000. I spoke with the nurse. She says they gave him platelet transfusion, fresh frozen plasma after insertion of a subclavian line because he seem to be oozing blood after that. The history is that he is in the alf and was brought in for overall medical treatment. ASSESSMENT AND PLAN: There are some treatments now renal cell carcinoma. The older approach was a tyrosine kinase inhibitor medication such as sorafenib with Sutent followed by second line immunotherapy such as Keytruda. At present, increasingly, we are giving two medications along with the immunotherapy; however, this patient is not eligible for any of it. He simply is too weak. He is uncommunicative. He looks septic, not eating; and at the present time, he is not eligible for any kind of chemotherapy or treatment for his disease. So, at present, he is being given supportive medical treatment as needed. Jimi Iniguez MD
--- NOTE | 2018-08-22 17:54 | PN ---
DATE: 08/22/2018 SUBJECTIVE: The patient is currently seen having been returned from dialysis after a 40-minute treatment for hypotension. The patient together with family decided that continuing the present level of care is futile given his metastatic renal cell cancer. The patient will transfer over to hospice later this afternoon and there are no plans for any further dialysis. His last several dialysis treatments have been complicated by hypotension. The patient has desired to stop the dialysis. MEDICATIONS: Medication list reviewed. The patient is currently on aspirin, losartan, IV fluids, DuoNeb, Flagyl, Lipitor, Lopressor, cefepime, morphine, Renagel, Tylenol, and tramadol. PHYSICAL EXAMINATION: VITAL SIGNS: Blood pressure is 110/60. Heart rate is 80. Respiratory rate is 20. The patient is afebrile. HEENT: Normocephalic, atraumatic. Conjunctivae are pale. Sclerae are icteric. NECK: Supple. No neck vein distention. CHEST: Clear to auscultation and percussion with decreased breath sounds at the bases. CARDIOVASCULAR: Shows a regular rate and rhythm without murmurs, rubs or gallops. ABDOMEN: Soft. Bowel sounds are normal. He is not distended. No rebound, guarding or masses. EXTREMITIES: Show 2+ pitting edema of his lower extremity. Positive working AV fistula. No lower extremity cyanosis or clubbing. LABORATORY DATA: White blood cell count 59.7, hemoglobin low at 6.7 with a platelet count of 92,000. Liver enzymes remain elevated. BUN and creatinine remain elevated consistent with end-stage renal disease. Potassium level is acceptable. Microbiology, all cultures are negative to date. ASSESSMENT: 1. Metastatic renal cell carcinoma with liver mets and lung mets, possible atypical pneumonia. This is deemed to be untreatable. 2. History of sepsis with leukocytosis. 3. History of ascites with anasarca. 4. End-stage renal disease. The patient will no longer receive dialysis. This is the decision of the family and patient. 5. History of arteriosclerotic heart disease, stable. 6. History of mild congestive heart failure. PLAN: 1. Discussed with the patient's family after having completed an early dialysis today. There are no plans for further dialysis. The patient will transfer over to hospice status later this afternoon. The patient will be made comfortable. The plan is for the patient to remain in the hospital for his hospice care. 2. And as much as this patient will not receive any further dialysis. No further renal involvement is necessary. Dylon Brown MD MTD[facility]
== END 2018-08-22 13:10 | disposition hospice, inpatient (51) | DRG 686 ==
LOC: ED 17:13 → ERH 19:09 → 3RSO 22:48
PROVIDERS: ADMIT Family Medicine; ATTEND Family Medicine
PROC: 5A1D70Z Performance of Urinary Filtration, Intermittent, Less than 6 Hours Per Day (ICD-10-PCS; principal; 2018-08-19)
PROC: 5A1D70Z Performance of Urinary Filtration, Intermittent, Less than 6 Hours Per Day (ICD-10-PCS; 2018-08-21)
PROC: 02HV33Z Insertion of Infusion Device into Superior Vena Cava, Percutaneous Approach (ICD-10-PCS; 2018-08-21)
PROC: 30233R1 Transfusion of Nonautologous Platelets into Peripheral Vein, Percutaneous Approach (ICD-10-PCS; 2018-08-21)
PROC: 30233K1 Transfusion of Nonautologous Frozen Plasma into Peripheral Vein, Percutaneous Approach (ICD-10-PCS; 2018-08-22)
DX: C64.1 Malignant neoplasm of right kidney, except renal pelvis (principal); C78.7 Secondary malignant neoplasm of liver and intrahepatic bile duct; C78.00 Secondary malignant neoplasm of unspecified lung; N18.6 End stage renal disease; I13.2 Hypertensive heart and chronic kidney disease with heart failure and with stage 5 chronic kidney disease, or end stage renal disease; R64 Cachexia; I42.0 Dilated cardiomyopathy; R65.10 Systemic inflammatory response syndrome (SIRS) of non-infectious origin without acute organ dysfunction; R18.8 Other ascites; E78.00 Pure hypercholesterolemia, unspecified; Z99.2 Dependence on renal dialysis; R62.7 Adult failure to thrive; D64.9 Anemia, unspecified; I50.9 Heart failure, unspecified; I25.10 Atherosclerotic heart disease of native coronary artery without angina pectoris; Z66 Do not resuscitate; I95.9 Hypotension, unspecified; Z51.5 Encounter for palliative care; Z68.22 Body mass index [BMI] 22.0-22.9, adult; E78.5 Hyperlipidemia, unspecified; R63.0 Anorexia; F41.9 Anxiety disorder, unspecified; R32 Unspecified urinary incontinence; L89.92 Pressure ulcer of unspecified site, stage 2

== ENCOUNTER 2018-08-22 13:13 | Inpatient (IN) | payer OTHER ==
[2018-08-22 13:45] VITALS: BMI 21.6
[2018-08-22] MEDS ORDERED: Morphine PCA 1 mg/ml (30ml) 30 ML IV PRN (13:48)
[2018-08-22] MEDS ORDERED: DiphenhydrAMINE 50 mg/ml Inj IVP PRN ×2 (14:07→14:08)
[2018-08-22] MEDS ORDERED: Morphine 2 mg/ml ISec IVP STA (14:55)
[2018-08-22 17:26] VITALS: RESP 16
--- NOTE | 2018-08-22 19:44 | CP.PCM.PRO ---
Pronouncement of Note - Clinical Findings Physical Exam: No Response Verbal/Painful Stimuli, Absent Peripheral Puls es{Carotid & Femoral}, Absent Heart & Breath Sounds, Absence of Vital Signs - Pronouncement Time Time of Pronouncement of : 19:15 Additional Comments: Patient on hospice and . Family was at bedside. - Notifications Pronouncement Notifications: Family Notified, Atending Notified Area Field Manager Notified: No - Autopsy Autopsy Requested: No - [place] [id number]
== END 2018-08-22 19:15 | DRG 686 ==
LOC: 3RSO 13:13 → 3RNO 15:33
PROVIDERS: ADMIT Family Medicine; ATTEND Family Medicine
DX: C64.1 Malignant neoplasm of right kidney, except renal pelvis (principal); N18.6 End stage renal disease; C78.7 Secondary malignant neoplasm of liver and intrahepatic bile duct; C78.00 Secondary malignant neoplasm of unspecified lung; I13.2 Hypertensive heart and chronic kidney disease with heart failure and with stage 5 chronic kidney disease, or end stage renal disease; R64 Cachexia; I42.0 Dilated cardiomyopathy; R65.10 Systemic inflammatory response syndrome (SIRS) of non-infectious origin without acute organ dysfunction; I50.9 Heart failure, unspecified; Z66 Do not resuscitate; Z51.5 Encounter for palliative care; Z99.2 Dependence on renal dialysis; R62.7 Adult failure to thrive